=== PATIENT | male | born 1950 | race Caucasian/White ===

== ENCOUNTER 2019-06-08 22:55 | Observation (INO) ==
[2019-06-09 00:17] LABS: Appearance Urine Clear (Clear); Bacteria Urine Automated Negative (Negative); Bilirubin Urine Negative (Negative); Blood Urine Trace (Negative); Cast Urine Automated 0 /lpf (0-5); Color Urine Yellow; Epithelial Cell Urine Auto 0-5 /lpf (0-5); Glucose Urine UA Negative (Negative); Ketones Urine Negative (Negative); Leukocyte Esterase Urine Negative (Negative); Nitrite Urine Negative (Negative); Protein Urine Negative (Negative); RBC Urine Automated 0-4 /hpf (0-4); Specific Gravity Urine 1.017 (1.000-1.030); Urobilinogen Urine Negative (Negative); WBC Urine Automated 0 /hpf (0-5); pH Urine 5.5 (4.5-7.5)
[2019-06-09 00:21] LABS: Basophils # (auto) 0.03 K/uL (0-0.2); Basophils % (auto) 0.3 %; Eosinophils # (auto) 0.01 K/uL (0-0.5); Eosinophils % (auto) 0.1 %; Hematocrit (blood only) 37.3 % (42-52); Hemoglobin 13.4 g/dL (14.0-18.0); Immature Granulocytes # (auto) 0.02 K/uL (0.00-0.02); Immature Granulocytes % (auto) 0.2 %; Lymphocytes % (auto) 14.8 %; Mean Corpuscular Hemoglobin 31.7 pg (25-34); Mean Corpuscular Hgb Conc 35.9 g/dL (32-36); Mean Corpuscular Volume 88.2 fL (80-100); Mean Platelet Volume 8.7 fL (7.4-10.4); Monocytes # (auto) 0.72 K/uL (0.11-0.59); Monocytes % (auto) 8.2 %; Neutrophils # (auto) 6.69 K/uL (1.4-6.5); Neutrophils % (auto) 76.4 %; Platelet Count 222 K/uL (130-400); RDW Coefficient of Variation 12.9 % (11.5-14.5); RDW Standard Deviation 41.5 fL (36.4-46.3); Red Blood Count 4.23 M/uL (4.7-6.1); White Blood Count 8.77 K/uL (4.8-10.8)
[2019-06-09 00:38] LABS: Albumin Level 3.8 gm/dl (3.4-5.0); BUN Creatinine Ratio 19.2 (10-20); Calcium 8.6 mg/dl (8.5-10.1); Creatinine Clr Calc Pharmacy 68.1 ml/min; Est GFR (African American) 92.6; Est GFR (Non-African American) 79.9; Potassium 4.1 mmol/L (3.5-5.1)
[2019-06-09 00:44] LABS: Amphetamines+Metham, Urine Neg (Neg); Barbiturates, Urine Neg (Neg); Benzodiazepine, Urine Neg (Neg); Cocaine, Urine Neg (Neg); MDMA (Ecstacy), Urine Neg (Neg); Methadone, Urine Neg (Neg); Opiate, Urine Neg (Neg); Phencyclidine, Urine Neg (Neg)
[2019-06-09 00:49] LABS: Albumin Globulin Ratio 1.2 (0.9-2); Bilirubin,Total 0.3 mg/dl (0.2-1); Globulin 3.2 gm/dl (2.5-4.0); Thyroid Stimulating Hormone 3.32 uIu/ml (0.300-4.500)
[2019-06-09] MEDS ORDERED: SODIUM CHLORIDE 0.9% 1000ML 1,000 ML IV ONE (03:49)
--- NOTE | 2019-06-09 03:50 | History & Physical Report ---
Date of Service June 09, 2019 Assessment & Plan (1) Chest pain of uncertain etiology: With troponin elevation Likely secondary to tachycardia secondary to agitation Behavioral change, speech abnormality Rule out intracranial tumor Epilepsy well-controlled as per patient hyperlipidemia on statin Rx New onset anemia past tobacco abuse OBS Medical telemetry Follow troponin, TTE RE troponin elevation MRI brain RE behavioral change, speech abnormality Neurology consult as per patient/girlfriend request regarding behavioral change, speech abnormality (Patient known to Dr. Cisneros.) Anemia work-up DVT prophylaxis SCDs for now until brain tumor/occult GI bleed ruled out Full code Patient's partner requesting updates from providers. Ms. Fina Riddle, contact #[phone]. History of Present Illness Chief Complaint: Not acting himself as per girlfriend Primary Care Provider: Roshan Temple MD History obtained from patient, family, and records. Medical history significant for epilepsy, hyperlipidemia, past tobacco abuse. Last two days patient noted by picture painter to be not himself. Easily agitated, combative to some people. Patient denies confusion. Compliant with home medications. Denies intake of new or bowel, OTC meds. Usual achy headache symptoms. No fever, no chills. Patient also noted to be talking differently with his tongue sticking out. Grand mal seizures well-controlled, last one was about 2 years ago as per girlfriend. Patient also noted transient chest pain nonpleuritic attributed to palpitations with some shortness of breath. Medical History as above Surgical History : Carpal tunnel surgery, vasectomy, ankle surgery Family History : Laryngeal cancer, CAD, hyperlipidemia, hypertension Personal/Social history : Past tobacco abuse, occasional alcohol intake, retired [employer] employee Allergies Allergy/AdvReac Type Severity Reaction Status Date / Time No Known Allergies Allergy Verified 06/09/19 00:34 Home Medications Home Medications Medication Instructions Recorded Confirmed Type ascorbic acid (vitamin C) [Vitamin 500 mg PO DAILY 06/09/19 06/09/19 History C] atorvastatin 40 mg PO DAILY 06/09/19 06/09/19 History multivitamin with minerals 1 tab PO DAILY 06/09/19 06/09/19 History phenytoin sodium extended 100 mg PO TID 06/09/19 06/09/19 History [Dilantin Extended] vitamin E 400 unit PO DAILY 09/27/19 09/27/19 History Past Med/Surg History Family History Other No significant family history Social History Preferred Language: Brazilian Communication Ability: Effective Environmental Health Specialist Required: No Beliefs That Will Affect Care: None Current Living Situation: Significant Other Other Information That Helps Us Care for You: No Feels Safe at Home: Yes Safety Concerns: Feels Safe At This Time Smoking Status: Former smoker Do You Dip or Chew Tobacco: No ; Hx Substance Use: No Review of Systems Review of Systems: As per HPI, all 10 systems reviewed, all other ROS negative Physical Exam Physical Exam: GENERAL: Comfortable, loquacious, notable lisping during speech secondary to marked tongue thrusting, no respiratory distress SKIN: Normal color, warm HEENT: Bespectacled, pink palpebral conjunctivae, no ptosis, dry buccal mucosa NECK : Supple, no tenderness CHEST : CTA, no tenderness HEART : Tachycardic, no obvious murmurs ABDOMEN: Some distention, nontender EXTREMITIES : No LE swelling/tenderness, no other conspicuous deformities noted NEUROLOGIC : Coherent, no facial asymmetry, lisping from tongue thrusting during speech, chronic rest tremors Results & Data Vital Signs (Past 12 Hours) Vital Signs Temp Pulse Pulse Resp BP BP Pulse Ox 06/09/19 03:09 111 H 18 129/80 96 06/09/19 01:16 107 H 18 125/76 96 06/08/19 23:28 97 06/08/19 22:58 37.0 C 103 H 16 150/103 H 97 Laboratory Results Laboratory Results WBC 8.77 K/uL (4.8-10.8) 06/09/19 00:10 RBC 4.23 M/uL (4.7-6.1) L 06/09/19 00:10 Hgb 13.4 g/dL (14.0-18.0) L 06/09/19 00:10 Hct 37.3 % (42-52) L 06/09/19 00:10 MCV 88.2 fL (80-100) 06/09/19 00:10 MCH 31.7 pg (25-34) 06/09/19 00:10 MCHC 35.9 g/dL (32-36) 06/09/19 00:10 RDW Std Deviation 41.5 fL (36.4-46.3) 06/09/19 00:10 RDW Coeff of Bertha 12.9 % (11.5-14.5) 06/09/19 00:10 Plt Count 222 K/uL (130-400) 06/09/19 00:10 MPV 8.7 fL (7.4-10.4) 06/09/19 00:10 Immature Gran % (Auto) 0.2 % 06/09/19 00:10 Neut % (Auto) 76.4 % 06/09/19 00:10 Lymph % (Auto) 14.8 % 06/09/19 00:10 [place] % (Auto) 8.2 % 06/09/19 00:10 Eos % (Auto) 0.1 % 06/09/19 00:10 Baso % (Auto) 0.3 % 06/09/19 00:10 Immature Gran # (Auto) 0.02 K/uL (0.00-0.02) 06/09/19 00:10 Neut # (Auto) 6.69 K/uL (1.4-6.5) H 06/09/19 00:10 Lymph # (Auto) 1.30 K/uL (1.2-3.4) 06/09/19 00:10 [place] # (Auto) 0.72 K/uL (0.11-0.59) H 06/09/19 00:10 Eos # (Auto) 0.01 K/uL (0-0.5) 06/09/19 00:10 Baso # (Auto) 0.03 K/uL (0-0.2) 06/09/19 00:10 Sodium 136 mmol/L (136-145) 06/09/19 00:10 Potassium 4.1 mmol/L (3.5-5.1) 06/09/19 00:10 Chloride 103 mmol/L (98-107) 06/09/19 00:10 Carbon Dioxide 24 mmol/L (21-32) 06/09/19 00:10 Anion Gap 9.0 (3-11) 06/09/19 00:10 BUN 19 mg/dl (7-18) H 06/09/19 00:10 Creatinine 0.97 mg/dl (0.6-1.4) 06/09/19 00:10 Est Cr Clr Drug Dosing 68.1 ml/min 06/09/19 00:10 Est GFR ( Amer) 92.6 06/09/19 00:10 Est GFR (Non-Af Amer) 79.9 06/09/19 00:10 BUN/Creatinine Ratio 19.2 (10-20) 06/09/19 00:10 Glucose 107 mg/dl (70-99) H 06/09/19 00:10 Calcium 8.6 mg/dl (8.5-10.1) 06/09/19 00:10 Magnesium 2.0 mg/dl (1.8-2.4) 06/09/19 00:10 Total Bilirubin 0.3 mg/dl (0.2-1) 06/09/19 00:10 AST 26 U/L (15-37) 06/09/19 00:10 ALT 33 U/L (12-78) 06/09/19 00:10 Alkaline Phosphatase 94 U/L (45-117) 06/09/19 00:10 Total Creatine Kinase 384 U/L (39-308) H 06/09/19 00:10 Total Protein 7.0 gm/dl (6.4-8.2) 06/09/19 00:10 Albumin 3.8 gm/dl (3.4-5.0) 06/09/19 00:10 Globulin 3.2 gm/dl (2.5-4.0) 06/09/19 00:10 Albumin/Globulin Ratio 1.2 (0.9-2) 06/09/19 00:10 TSH 3.320 uIu/ml (0.300-4.500) 06/09/19 00:10 Urine Color Yellow 06/08/19 23:05 Urine Appearance Clear (Clear) 06/08/19 23:05 Urine pH 5.5 (4.5-7.5) 06/08/19 23:05 Ur Specific [place] 1.017 (1.000-1.030) 06/08/19 23:05 Urine Protein Negative (Negative) 06/08/19 23:05 Urine Glucose (UA) Negative (Negative) 06/08/19 23:05 Urine Ketones Negative (Negative) 06/08/19 23:05 Urine Blood Trace (Negative) H 06/08/19 23:05 Urine Nitrite Negative (Negative) 06/08/19 23:05 Urine Bilirubin Negative (Negative) 06/08/19 23:05 Urine Urobilinogen Negative (Negative) 06/08/19 23:05 Ur Leukocyte Esterase Negative (Negative) 06/08/19 23:05 Urine WBC (Auto) 0 /hpf (0-5) 06/08/19 23:05 Urine RBC (Auto) 0-4 /hpf (0-4) 06/08/19 23:05 U Hyaline Cast (Auto) 0 /lpf (0-5) 06/08/19 23:05 U Epithel Cells (Auto) 0-5 /lpf (0-5) 06/08/19 23:05 Urine Bacteria (Auto) Negative (Negative) 06/08/19 23:05 Urine Opiates Screen Neg (Neg) 06/08/19 23:05 Ur Methadone, Qual Neg (Neg) 06/08/19 23:05 Urine Barbiturates Neg (Neg) 06/08/19 23:05 Phenytoin 10.1 mcg/ml (10-20) 06/09/19 00:10 Ur Phencyclidine (PCP) Neg (Neg) 06/08/19 23:05 U Amphetamin/Meth Scrn Neg (Neg) 06/08/19 23:05 MDMA (Ecstasy) Screen Neg (Neg) 06/08/19 23:05 U Benzodiazepines Scrn Neg (Neg) 06/08/19 23:05 Ur Cocaine Metabolite Neg (Neg) 06/08/19 23:05 U Marijuana (THC) Screen Neg (Neg) 06/08/19 23:[address] head initial read: No acute intracranial hemorrhage. CT chest initial read: No evidence of pulmonary embolism. Coronary artery calcifications. Mild atelectasis right lower lobe. Few small lung nodules. Small tracheal diverticulum at thoracic inlet. Liver hypodensities likely cysts. Mild exaggerated thoracic kyphosis. EKG as per my interpretation: Rate 90, NSR, LAD, LAFB, incomplete RBBB, T wave flattening, inferior leads
[2019-06-09 04:31] LABS: Reticulocytes # 0.04 10^6/uL (0.02-0.10)
[2019-06-09 04:50] LABS: Partial Thromboplastin Ratio 0.9; Partial Thromboplastin Time 24.1 Seconds (21.0-31.0)
[2019-06-09 04:53] LABS: Ferritin 200.9 ng/ml (8-388)
[2019-06-09] MEDS ORDERED: OPTIRAY 320 125ml IV PRN (04:55)
[2019-06-09] MEDS ORDERED: LACTATED RINGER'S 1,000 ML IV ONE ×3 (05:04→07:30)
[2019-06-09] MEDS ORDERED: NITROGLYCERIN SL 0.4 MG/TAB TAB SL PRN (05:04)
[2019-06-09] MEDS ORDERED: ACETAMINOPHEN 325 MG TAB PO PRN (05:04)
[2019-06-09] MEDS ORDERED: PROMETHAZINE HCL 12.5 MG in SODIUM CHLORIDE 0.9% 50 ML IV PRN (05:04)
[2019-06-09 05:23] LABS: Lyme Ab IgM w/WB Rflx Negative (Negative)
[2019-06-09 06:24] LABS: Lyme Ab IgG w/WB Rflx Positive (Negative)
--- NOTE | 2019-06-09 06:57 | CT Scan Report ---
CT angio chest PE protocol CT DOSE: 597.94 mGy.cm HISTORY: 68 years-old Male with PE. Acute chest pain TECHNIQUE: Multiple CTA images of the chest were obtained after the intravenous administration of 116 ml Optiray 320. Coronal and sagittal MIPS were obtained from the axial data set and were submitted for review. All measurements were obtained according to NASCET criteria. A dose lowering technique w as utilized adhering to the principles of ALARA. COMPARISON: Chest and rib radiographs 08/30/2016. FINDINGS: CTA: Heart is normal in size without pericardial effusion. Coronary arterial calcifications. No thoracic a ortic aneurysm or dissection. Patency of the imaged great vessels. Calcified plaque of the thoracic a ortic arch and proximal great vessels. Pulmonary arterial tree is opacified to level the segmental br anches and demonstrates no focal filling defects to suggest pulmonary thromboembolic disease. Evaluat ion of the pulmonary arterial tree is limited secondary to respiratory motion artifact. CT CHEST: Unremarkable thyroid. No adenopathy. No pneumothorax or pleural effusion. No overt pulmonary edema or focal airspace consolidation to suggest pneumonia. Minimal subsegmental bibasilar atelectasis. 3 mm solid nodule of the lingula, image 69 series 4. There are a few scattered solid pulmonary nodules not ed within the right upper lobe measuring up to 4 mm (please see bookmarks). Central airways appear pa tent. A small tracheocele is noted within the distribution of the right tracheoesophageal recess on i mage 219 series 4. Mild nonspecific distal esophageal wall thickening with probable tiny hiatal herni a. Probable cyst of the left hepatic lobe, 11 mm. Soft tissues are unremarkable. The bones appear int act. IMPRESSION: 1. No acute intrathoracic abnormality, specifically no evidence of pulmonary thromboembolic disease. 2. A few low suspicion solid pulmonary nodules are noted bilaterally measuring up to 4 mm. Follow-up guidelines provided below. 3. Mild nonspecific distal esophageal wall thickening. Please refer to below summary of Fleischner criteria recommendations for follow-up of incidental CT n odules (Dianna Gray, Guidelines for management of small pulmonary nodules detected on CT scans: A sta tement from the Fleischner Society, Radiology 237: [phone].) SOLID NODULES Multiple nodules size: <6 mm * Low risk patients: no routine follow-up * high risk patients: optional CT at 12 months Note: newly detected indeterminate nodule in persons 35 years of age or older. * Low risk patients: minimal or absent history of smoking and/or other known risk factors * high risk patients: history of smoking or of other known risk factors (e.g. first degree relative with lung cancer, or exposure to asbestos, radon, uranium) * if a nodule up to 8 mm is partly solid or is ground glass further follow-up is required after 24 m onths to exclude possible slow growing adenocarcinoma ([id number]) The above report was generated using voice recognition software. It may contain grammatical, syntax o r spelling errors. Electronically signed by: Anthony Arellano M.D. 06/09/2019 6:55 AM
--- NOTE | 2019-06-09 07:09 | CT Scan Report ---
CT head/brain wo con CLINICAL HISTORY: 68 years-old Male presenting with altered ms. TECHNIQUE: Multidetector CT imaging of the head was performed without the use of intravenous contrast . IV contrast: None. One or more dose lowering techniques were used consistent with the principles of ALARA (as low as reasonably achievable), including automatic exposure control, mA or kV adjustment t o individual patient size, and/or use of iterative reconstruction. COMPARISON: None. CT DOSE (mGy.cm): The estimated cumulative dose is 614.27 mGy.cm. FINDINGS: Equipment Validation Engineer topogram: Unremarkable. Proportional ventricular and sulcal prominence, likely age-related parenchymal volume loss. No hemorr josh. Brain parenchyma normal in appearance with preserved pierce-white differentiation. No acute kevin torial infarct. No mass effect or midline shift. No extra-axial fluid collection. Paranasal sinuses a nd mastoid air cells clear. Calvarium intact. IMPRESSION: 1. No acute intracranial abnormality. Electronically signed by: Joo Lyons M.D. 06/09/2019 7:07 AM
[2019-06-09] MEDS: PHENYTOIN SODIUM ER 100 MG CAP PO SCH ×3 (07:49→20:28)
[2019-06-09] MEDS: CEROVITE ADV FORMULA TAB PO SCH (07:49)
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
--- NOTE | 2019-06-09 08:54 | Magnetic Resonance Report ---
MR brain wo/w con CLINICAL HISTORY: 68 years-old Male presenting with mental status change, intermittent headaches, his tory of seizures. TECHNIQUE: Multisequence, multiplanar MR imaging of the brain was performed before and after the admi nistration of intravenous contrast. IV contrast: 8 mL of Gadavist. COMPARISON: Noncontrast CT head performed earlier the same day. FINDINGS: Localizer images: Unremarkable. Bone marrow signal intensity within the calvarium within normal limits. Normal midline sagittal structures. Ventricles and sulci normal in size. No mass effect or midline sh ift. No restricted diffusion or hemorrhage. Brain parenchyma normal in appearance with preserved pierce -white differentiation. No abnormal parenchymal enhancement. No extra-axial fluid collection. T2 skull base flow voids preserved. IMPRESSION: 1. No acute intracranial pathology. No abnormal enhancement. Electronically signed by: Joo Lyons M.D. 06/09/2019 8:53 AM
[2019-06-09] MEDS ORDERED: GADOBUTROL 65ML VIAL IV PRN (08:57)
[2019-06-09 08:58] LABS: Folate (Folic Acid) 12.72 ng/ml (>5.38)
--- NOTE | 2019-06-09 09:59 | Hospitalist Progress Note ---
Date of Service June 09, 2019 Assessment & Plan (1) Chest pain of uncertain etiology: With troponin elevation Likely secondary to tachycardia secondary to agitation Behavioral change, speech abnormality Rule out intracranial tumor Epilepsy well-controlled as per patient hyperlipidemia on statin Rx New onset anemia past tobacco abuse OBS Medical telemetry Follow troponin, TTE RE troponin elevation MRI brain RE behavioral change, speech abnormality Neurology consult as per patient/girlfriend request regarding behavioral change, speech abnormality (Patient known to Dr. Cisneros.) Anemia work-up DVT prophylaxis SCDs for now until brain tumor/occult GI bleed ruled out Full code Patient's partner requesting updates from providers. Ms. Fina Riddle, contact #[phone]. (2) Altered mental status: 68-year-old male with history of seizure disorder, presented with behavioral changes BEHAVIORAL CHANGES, HISTORY OF EPILEPSY Brain MRI: No acute CVA Dilantin within normal range r/o partial versus subclinical seizures EEG ordered Neurology consulted ATYPICAL CHEST PAIN Troponin #1 0.04, #2 negative, #3 pending EKG: No signs of acute ischemia or infarct Echocardiogram: Left ventricular wall motion is normal, mild concentric LVH, EF more than equal or greater than 70%, grade 1 diastolic dysfunction Consider outpatient stress testing persistent CT chest: Negative for PE Also reports intermittent palpitations occurring when he is upset, consider outpatient cardiac monitoring LEFT ANKLE PAIN HISTORY OF ANKLE SURGERY X-ray of the ankle ordered Orthopedic consultation ordered Ice packs to the affected area PT OT ordered RULE OUT LYME DISEASE IgG positive Western blot test pending DVT prophylaxis SCDs Consider Lovenox if with prolonged hospitalization Disposition Lives at home with family Subjective Follow-up for behavioral changes, chest pain Seen resting in bed, with sister at the bedside visiting Patient is comfortable, not in distress Answers questions appropriately, oriented x3 Denies focal neurologic deficits Chest pain-free Reported sharp chest pain, central sternum area, located one finger, nonradiating, lasted for 2 minutes, happened while upset Reports progressive worsening of left ankle pain Denies other symptoms Review of Systems Review of Systems: All systems reviewed & are unremarkable except as noted in HPI & below Physical Exam Physical Exam: General- oriented x 3, not in distress, speaks in sentences wi th no effort or accessory muscle use Head- atraumatic Eyes- PERRL, EOMI, anicteric ENT- oropharynx clear Neck- supple, no JVD, no adenopathy, no thyromegaly; carotids +2/2, no bruits appreciated Lungs- clear to auscultation bilaterally, no rales/wheezes Heart- normal rate, regular rhythm; no murmur, no gallop, no rub appreciated Abdomen- normal bowel sounds, nondistended, soft, nontender, no masses or hepatosplenomegaly Extremities- no pretibial edema, no calf tenderness; peripheral pulses intact Left ankle mild swelling to lateral aspect, no warmth/erythema/tenderness Neuro- alert, oriented x 3; CN 2-12 grossly intact except for dysarthria-chronic as per patient; motor 5/5 bilaterally;sensation 100% on all extremities; no other gross focal neurologic deficits Skin- warm & dry Results & Data Vital Signs (Past 12 Hours) Vital Signs Temp Pulse Pulse Resp BP BP Pulse Ox 06/09/19 07:00 36.8 C 20 126/78 98 06/09/19 04:52 36.8 C 81 20 152/89 H 96 06/09/19 04:20 101 H 18 125/103 H 96 06/09/19 03:09 111 H 18 129/80 96 06/09/19 01:16 107 H 18 125/76 96 06/08/19 23:28 97 06/08/19 22:58 37.0 C 103 H 16 150/103 H 97 Laboratory Results Laboratory Results - last 24 hr 06/08/19 06/08/19 06/09/19 23:05 23:05 00:10 WBC 8.77 RBC 4.23 L Hgb 13.4 L Hct 37.3 L MCV 88.2 MCH 31.7 MCHC 35.9 RDW Std Deviation 41.5 RDW Coeff of Bertha 12.9 Plt Count 222 MPV 8.7 Immature Gran % (Auto) 0.2 Neut % (Auto) 76.4 Lymph % (Auto) 14.8 [place] % (Auto) 8.2 Eos % (Auto) 0.1 Baso % (Auto) 0.3 Reticulocyte % (Auto) Immature Gran # (Auto) 0.02 Neut # (Auto) 6.69 H Lymph # (Auto) 1.30 [place] # (Auto) 0.72 H Eos # (Auto) 0.01 Baso # (Auto) 0.03 Reticulocyte # APTT PTT Ratio Sodium Potassium Chloride Carbon Dioxide Anion Gap BUN Creatinine Est Cr Clr Drug Dosing Est GFR ( Amer) Est GFR (Non-Af Amer) BUN/Creatinine Ratio Glucose Calcium Magnesium Iron TIBC Transferrin Ferritin Total Bilirubin AST ALT Alkaline Phosphatase Total Creatine Kinase Troponin I Total Protein Albumin Globulin Albumin/Globulin Ratio Vitamin B12 Folate TSH Urine Color Yellow Urine Appearance Clear Urine pH 5.5 Ur Specific [place] 1.017 Urine Protein Negative Urine Glucose (UA) Negative Urine Ketones Negative Urine Blood Trace H Urine Nitrite Negative Urine Bilirubin Negative Urine Urobilinogen Negative Ur Leukocyte Esterase Negative Urine WBC (Auto) 0 Urine RBC (Auto) 0-4 U Hyaline Cast (Auto) 0 U Epithel Cells (Auto) 0-5 Urine Bacteria (Auto) Negative Stool Occult Bld Scrn Urine Opiates Screen Neg Ur Methadone, Qual Neg Urine Barbiturates Neg Phenytoin Ur Phencyclidine (PCP) Neg U Amphetamin/Meth Scrn Neg MDMA (Ecstasy) Screen Neg U Benzodiazepines Scrn Neg Ur Cocaine Metabolite Neg U Marijuana (THC) Screen Neg Ethyl Alcohol mg/dL RPR Lyme Disease IgG Ab Lyme IgG (Western Blot) Lyme IgG 18 kDa Band Lyme IgG 23 kDa Band Lyme IgG 28 kDa Band Lyme IgG 30 kDa Band Lyme IgG 39 kDa Band Lyme IgG 41 kDa Band Lyme IgG 45 kDa Band Lyme IgG 58 kDa Band Lyme IgG 66 kDa Band Lyme IgG 93 kDa Band Lyme Disease IgM Ab Lyme IgM (Western Blot) Lyme IgM 23 kDa Band Lyme IgM 39 kDa Band Lyme IgM 41 kDa Band Hepatitis C Ab Screen Blood Type Antibody Screen 06/09/19 06/09/19 06/09/19 00:10 00:10 04:11 WBC RBC Hgb Hct MCV MCH MCHC RDW Std Deviation RDW Coeff of Bertha Plt Count MPV Immature Gran % (Auto) Neut % (Auto) Lymph % (Auto) [place] % (Auto) Eos % (Auto) Baso % (Auto) Reticulocyte % (Auto) Immature Gran # (Auto) Neut # (Auto) Lymph # (Auto) [place] # (Auto) Eos # (Auto) Baso # (Auto) Reticulocyte # APTT 24.1 PTT Ratio 0.9 Sodium 136 Potassium 4.1 Chloride 103 Carbon Dioxide 24 Anion Gap 9.0 BUN 19 H Creatinine 0.97 Est Cr Clr Drug Dosing 68.1 Est GFR ( Amer) 92.6 Est GFR (Non-Af Amer) 79.9 BUN/Creatinine Ratio 19.2 Glucose 107 H Calcium 8.6 Magnesium 2.0 Iron TIBC Transferrin Ferritin Total Bilirubin 0.3 AST 26 ALT 33 Alkaline Phosphatase 94 Total Creatine Kinase 384 H Troponin I Total Protein 7.0 Albumin 3.8 Globulin 3.2 Albumin/Globulin Ratio 1.2 Vitamin B12 Folate TSH 3.320 Urine Color Urine Appearance Urine pH Ur Specific [place] Urine Protein Urine Glucose (UA) Urine Ketones Urine Blood Urine Nitrite Urine Bilirubin Urine Urobilinogen Ur Leukocyte Esterase Urine WBC (Auto) Urine RBC (Auto) U Hyaline Cast (Auto) U Epithel Cells (Auto) Urine Bacteria (Auto) Stool Occult Bld Scrn Urine Opiates Screen Ur Methadone, Qual Urine Barbiturates Phenytoin 10.1 Ur Phencyclidine (PCP) U Amphetamin/Meth Scrn MDMA (Ecstasy) Screen U Benzodiazepines Scrn Ur Cocaine Metabolite U Marijuana (THC) Screen Ethyl Alcohol mg/dL RPR Lyme Disease IgG Ab Lyme IgG (Western Blot) Lyme IgG 18 kDa Band Lyme IgG 23 kDa Band Lyme IgG 28 kDa Band Lyme IgG 30 kDa Band Lyme IgG 39 kDa Band Lyme IgG 41 kDa Band Lyme IgG 45 kDa Band Lyme IgG 58 kDa Band Lyme IgG 66 kDa Band Lyme IgG 93 kDa Band Lyme Disease IgM Ab Lyme IgM (Western Blot) Lyme IgM 23 kDa Band Lyme IgM 39 kDa Band Lyme IgM 41 kDa Band Hepatitis C Ab Screen Blood Type Antibody Screen 06/09/19 06/09/19 06/09/19 04:11 04:11 04:11 WBC RBC Hgb Hct MCV MCH MCHC RDW Std Deviation RDW Coeff of Bertha Plt Count MPV Immature Gran % (Auto) Neut % (Auto) Lymph % (Auto) [place] % (Auto) Eos % (Auto) Baso % (Auto) Reticulocyte % (Auto) 1.0 Immature Gran # (Auto) Neut # (Auto) Lymph # (Auto) [place] # (Auto) Eos # (Auto) Baso # (Auto) Reticulocyte # 0.04 APTT PTT Ratio Sodium Potassium Chloride Carbon Dioxide Anion Gap BUN Creatinine Est Cr Clr Drug Dosing Est GFR ( Amer) Est GFR (Non-Af Amer) BUN/Creatinine Ratio Glucose Calcium Magnesium Iron TIBC Transferrin Ferritin Total Bilirubin AST ALT Alkaline Phosphatase Total Creatine Kinase Troponin I Total Protein Albumin Globulin Albumin/Globulin Ratio Vitamin B12 Folate TSH Urine Color Urine Appearance Urine pH Ur Specific [place] Urine Protein Urine Glucose (UA) Urine Ketones Urine Blood Urine Nitrite Urine Bilirubin Urine Urobilinogen Ur Leukocyte Esterase Urine WBC (Auto) Urine RBC (Auto) U Hyaline Cast (Auto) U Epithel Cells (Auto) Urine Bacteria (Auto) Stool Occult Bld Scrn Urine Opiates Screen Ur Methadone, Qual Urine Barbiturates Phenytoin Ur Phencyclidine (PCP) U Amphetamin/Meth Scrn MDMA (Ecstasy) Screen U Benzodiazepines Scrn Ur Cocaine Metabolite U Marijuana (THC) Screen Ethyl Alcohol mg/dL < 3.0 RPR Pending Lyme Disease IgG Ab Positive A Lyme IgG (Western Blot) Lyme IgG 18 kDa Band Lyme IgG 23 kDa Band Lyme IgG 28 kDa Band Lyme IgG 30 kDa Band Lyme IgG 39 kDa Band Lyme IgG 41 kDa Band Lyme IgG 45 kDa Band Lyme IgG 58 kDa Band Lyme IgG 66 kDa Band Lyme IgG 93 kDa Band Lyme Disease IgM Ab Negative Lyme IgM (Western Blot) Lyme IgM 23 kDa Band Lyme IgM 39 kDa Band Lyme IgM 41 kDa Band Hepatitis C Ab Screen Blood Type Antibody Screen 06/09/19 06/09/19 06/09/19 04:11 04:11 04:11 WBC RBC Hgb Hct MCV MCH MCHC RDW Std Deviation RDW Coeff of Bertha Plt Count MPV Immature Gran % (Auto) Neut % (Auto) Lymph % (Auto) [place] % (Auto) Eos % (Auto) Baso % (Auto) Reticulocyte % (Auto) Immature Gran # (Auto) Neut # (Auto) Lymph # (Auto) [place] # (Auto) Eos # (Auto) Baso # (Auto) Reticulocyte # APTT PTT Ratio Sodium Potassium Chloride Carbon Dioxide Anion Gap BUN Creatinine Est Cr Clr Drug Dosing Est GFR ( Amer) Est GFR (Non-Af Amer) BUN/Creatinine Ratio Glucose Calcium Magnesium Iron 47 TIBC 207 L Transferrin 161 L Ferritin 200.9 Total Bilirubin AST ALT Alkaline Phosphatase Total Creatine Kinase Troponin I Total Protein Albumin Globulin Albumin/Globulin Ratio Vitamin B12 342 Folate 12.72 TSH Urine Color Urine Appearance Urine pH Ur Specific [place] Urine Protein Urine Glucose (UA) Urine Ketones Urine Blood Urine Nitrite Urine Bilirubin Urine Urobilinogen Ur Leukocyte Esterase Urine WBC (Auto) Urine RBC (Auto) U Hyaline Cast (Auto) U Epithel Cells (Auto) Urine Bacteria (Auto) Stool Occult Bld Scrn Urine Opiates Screen Ur Methadone, Qual Urine Barbiturates Phenytoin Ur Phencyclidine (PCP) U Amphetamin/Meth Scrn MDMA (Ecstasy) Screen U Benzodiazepines Scrn Ur Cocaine Metabolite U Marijuana (THC) Screen Ethyl Alcohol mg/dL RPR Lyme Disease IgG Ab Lyme IgG (Western Blot) Lyme IgG 18 kDa Band Lyme IgG 23 kDa Band Lyme IgG 28 kDa Band Lyme IgG 30 kDa Band Lyme IgG 39 kDa Band Lyme IgG 41 kDa Band Lyme IgG 45 kDa Band Lyme IgG 58 kDa Band Lyme IgG 66 kDa Band Lyme IgG 93 kDa Band Lyme Disease IgM Ab Lyme IgM (Western Blot) Lyme IgM 23 kDa Band Lyme IgM 39 kDa Band Lyme IgM 41 kDa Band Hepatitis C Ab Screen Blood Type A Positive Antibody Screen NEGATIVE 06/09/19 06/09/19 06/09/19 04:11 04:11 07:45 WBC RBC Hgb Hct MCV MCH MCHC RDW Std Deviation RDW Coeff of Bertha Plt Count MPV Immature Gran % (Auto) Neut % (Auto) Lymph % (Auto) [place] % (Auto) Eos % (Auto) Baso % (Auto) Reticulocyte % (Auto) Immature Gran # (Auto) Neut # (Auto) Lymph # (Auto) [place] # (Auto) Eos # (Auto) Baso # (Auto) Reticulocyte # APTT PTT Ratio Sodium Potassium Chloride Carbon Dioxide Anion Gap BUN Creatinine Est Cr Clr Drug Dosing Est GFR ( Amer) Est GFR (Non-Af Amer) BUN/Creatinine Ratio Glucose Calcium Magnesium Iron TIBC Transferrin Ferritin Total Bilirubin AST ALT Alkaline Phosphatase Total Creatine Kinase Troponin I 0.048 H* 0.033 Total Protein Albumin Globulin Albumin/Globulin Ratio Vitamin B12 Folate TSH Urine Color Urine Appearance Urine pH Ur Specific [place] Urine Protein Urine Glucose (UA) Urine Ketones Urine Blood Urine Nitrite Urine Bilirubin Urine Urobilinogen Ur Leukocyte Esterase Urine WBC (Auto) Urine RBC (Auto) U Hyaline Cast (Auto) U Epithel Cells (Auto) Urine Bacteria (Auto) Stool Occult Bld Scrn Urine Opiates Screen Ur Methadone, Qual Urine Barbiturates Phenytoin Ur Phencyclidine (PCP) U Amphetamin/Meth Scrn MDMA (Ecstasy) Screen U Benzodiazepines Scrn Ur Cocaine Metabolite U Marijuana (THC) Screen Ethyl Alcohol mg/dL RPR Lyme Disease IgG Ab Lyme IgG (Western Blot) Pending Lyme IgG 18 kDa Band Pending Lyme IgG 23 kDa Band Pending Lyme IgG 28 kDa Band Pending Lyme IgG 30 kDa Band Pending Lyme IgG 39 kDa Band Pending Lyme IgG 41 kDa Band Pending Lyme IgG 45 kDa Band Pending Lyme IgG 58 kDa Band Pending Lyme IgG 66 kDa Band Pending Lyme IgG 93 kDa Band Pending Lyme Disease IgM Ab Lyme IgM (Western Blot) Pending Lyme IgM 23 kDa Band Pending Lyme IgM 39 kDa Band Pending Lyme IgM 41 kDa Band Pending Hepatitis C Ab Screen Blood Type Antibody Screen 06/09/19 06/09/19 07:45 15:56 WBC RBC Hgb Hct MCV MCH MCHC RDW Std Deviation RDW Coeff of Bertha Plt Count MPV Immature Gran % (Auto) Neut % (Auto) Lymph % (Auto) [place] % (Auto) Eos % (Auto) Baso % (Auto) Reticulocyte % (Auto) Immature Gran # (Auto) Neut # (Auto) Lymph # (Auto) [place] # (Auto) Eos # (Auto) Baso # (Auto) Reticulocyte # APTT PTT Ratio Sodium Potassium Chloride Carbon Dioxide Anion Gap BUN Creatinine Est Cr Clr Drug Dosing Est GFR ( Amer) Est GFR (Non-Af Amer) BUN/Creatinine Ratio Glucose Calcium Magnesium Iron TIBC Transferrin Ferritin Total Bilirubin AST ALT Alkaline Phosphatase Total Creatine Kinase Troponin I Total Protein Albumin Globulin Albumin/Globulin Ratio Vitamin B12 Folate TSH Urine Color Urine Appearance Urine pH Ur Specific [place] Urine Protein Urine Glucose (UA) Urine Ketones Urine Blood Urine Nitrite Urine Bilirubin Urine Urobilinogen Ur Leukocyte Esterase Urine WBC (Auto) Urine RBC (Auto) U Hyaline Cast (Auto) U Epithel Cells (Auto) Urine Bacteria (Auto) Stool Occult Bld Scrn Negative Urine Opiates Screen Ur Methadone, Qual Urine Barbiturates Phenytoin Ur Phencyclidine (PCP) U Amphetamin/Meth Scrn MDMA (Ecstasy) Screen U Benzodiazepines Scrn Ur Cocaine Metabolite U Marijuana (THC) Screen Ethyl Alcohol mg/dL RPR Lyme Disease IgG Ab Lyme IgG (Western Blot) Lyme IgG 18 kDa Band Lyme IgG 23 kDa Band Lyme IgG 28 kDa Band Lyme IgG 30 kDa Band Lyme IgG 39 kDa Band Lyme IgG 41 kDa Band Lyme IgG 45 kDa Band Lyme IgG 58 kDa Band Lyme IgG 66 kDa Band Lyme IgG 93 kDa Band Lyme Disease IgM Ab Lyme IgM (Western Blot) Lyme IgM 23 kDa Band Lyme IgM 39 kDa Band Lyme IgM 41 kDa Band Hepatitis C Ab Screen Neg Blood Type Antibody Screen (1) Altered mental status Altered mental status type: unspecified Qualified Code(s): R41.82 - Altered mental status, unspecified
--- NOTE | 2019-06-09 11:11 | XRay Report ---
LEFT ANKLE 3 VIEWS HISTORY: ankle pain, s/p surgery COMPARISON: None. FINDINGS: No acute fracture or dislocation within the left ankle. Prior internal fixation of a distal left fibular fracture with a cortical plate and screws. The hardware appears intact. There is decrea sed mineralization within the distal basilar tip without definite periprosthetic lucency. There is la teral soft tissue swelling. No bony destruction to suggest osteomyelitis. Plantar and posterior calca loretta spurs are present. No radiopaque foreign bodies. IMPRESSION: 1. Lateral soft tissue swelling. 2. Postoperative changes as described above. No evidence for hardware failure/complication. Electronically signed by: Antione Castaneda M.D. 06/09/2019 11:10 AM
--- NOTE | 2019-06-09 13:38 | Orthopedic Consultation ---
Date of Consultation June 09, 2019 Assessment & Plan (1) Swelling of ankle joint, left: Will have the patient evaluated by PT while inpatient. Discussed outpatient PT and possible bracing. WBAT LLE Activity as tolerated. Patient may follow up with Dr. Matson on an outpatient basis if he has persistent pain. Thank you for the consultation. Attending addendum: Patient seen and examined on consult rounds. Agree with assessment and plan above. Will see as an outpatient as needed. Thank you for the consult. Michele Carolyn DO (2) Left ankle pain: (3) Displaced fracture of lateral malleolus of left fibula, sequela: ~6 months s/p ORIF left lateral malleolus fx History of Present Illness Reason for Consultation: left ankle pain Attending Physician: Tonio Gardiner MD History of Present Illness This is a patient who had an ORIF of his left lateral malleolus fx in November of this year performed by Dr. Matson. He had progressed well throughout his recovery. He states he was told the bone had healed. He has not had any physical therapy to this point. He is still having some ankle pain and lateral ankle swelling. Allergies Allergy/AdvReac Type Severity Reaction Status Date / Time No Known Allergies Allergy Verified 06/09/19 00:34 Home Medications Home Medications Medication Instructions Recorded Confirmed Type ascorbic acid (vitamin C) [Vitamin 500 mg PO DAILY 06/09/19 06/09/19 History C] atorvastatin 40 mg PO DAILY 06/09/19 06/09/19 History multivitamin with minerals 1 tab PO DAILY 06/09/19 06/09/19 History phenytoin sodium extended 100 mg PO TID 06/09/19 06/09/19 History [Dilantin Extended] vitamin E 400 unit PO DAILY 06/09/19 06/09/19 History Patient History Family History Other No significant family history Social History Preferred Language: Greenlandic Communication Ability: Effective Mission Coordinator Required: No Beliefs That Will Affect Care: None Current Living Situation: Significant Other Other Information That Helps Us Care for You: No Feels Safe at Home: Yes Safety Concerns: Feels Safe At This Time Smoking Status: Former smoker Do You Dip or Chew Tobacco: No ; Hx Substance Use: No Physical Exam Constitutional: WD/WN, vitals as above ENMT: external ear and nose normal, oropharynx normal Musculoskeletal: Shoulder: + joint line tenderness (left anterolateral ankle. Nontender along fibula.) Ankle: + surgical incision (healed left lateral ankle incision) and + joint line tenderness (left anterolateral ankle. Nontender along fibula.); no effusion, no skin erythema, no ecchymosis and no crepitation with ankle ROM Left ankle: Good ROM with dorsiflexion, plantarflexion, inversion, eversion. PROM is pain free. No crepitation. 5/5 strength with dorsiflexion, plantarflexion, inversion, eversion. Mild to moderate swelling of the lateral ankle. No erythema. No obvious deformities. Skin: no rashes, warm and dry + wound (healed left lateral ankle incision) Neurologic: normal touch/pain/proprioception Psychiatric: Orientation: alert and oriented x 3 Lymphatic: no cervical or axillary lymphadenopathy Results & Data Vital Signs (Past 12 Hours) Vital Signs Temp Pulse Resp BP Pulse Ox 06/09/19 07:00 36.8 C 20 126/78 98 06/09/19 04:52 36.8 C 81 20 152/89 H 96 06/09/19 04:20 101 H 18 125/103 H 96 06/09/19 03:09 111 H 18 129/80 96 Diagnostic Findings 3 views of the left ankle: normal ankle mortise. Stable hardware lateral malleolus. The lateral malleolus appears to be well healed. No new fx's noted.
--- NOTE | 2019-06-09 14:11 | Neurology Consultation ---
Date of Consultation June 09, 2019 Assessment & Plan (1) Altered mental status: 1. MRI- with no acute findings 2. TTE >70 % EF no ASD 3. ZIO as outpatient for further evaluation of heart palpitations 4. no evidence of infection- Lyme + but negative M- never treated in past 5. limit caffeine use 6. keep well hydrated 7. CT chest- no evidence of PE- lung nodules follow up per radiology protocol 8. Vit B12, folate within normal range RPR-pending 9. irritable according to significant other- will likely need medication for anxiety 10. neuropsych testing as outpatient (2) History of seizure: 1. continue dilantin 100 mg TID no changes at this time 2. level 10.1 -therapeutic range 3. no bathing or swimming alone, no driving until seizure free for 6 months- seizures have been well controlled last seizure 05/2017 when hiking in [place]. Supervising Physician Co-Signing Physician Notes I have seen and discussed above patient with Dr Ana Lopez, neurology. Pt seen and examined. Hx of longstanding sz on Dilantin. By report some mild decrease in STM x 1 year and irritability. Pt much more irritable last 2 d, waited outside a business for hours to give the business his opinion re service. Perhaps speech mildly dysarthric for 4 or more hours. Some tongue thrusting of several months duration. MRI neg, Dilantin nml. CK mild increased (query statin related). Exm notable for some tongue thrusting and stuttering. No nystagmus. Mildly clumsy on FNF R>L. Gait mildly wide based. Episode of irritability, possibly behavioral. No evidence of stroke on MRI. Rec further eval for dementia, labs. Perhaps neuropsych testing upon dc. Etiology of cerebellar signs unclear, but longstanding. Consider psych consult or empiric use of SSRI. MONICA Lopez MD History of Present Illness Reason for Consultation: behavior change Requesting Physician: Tonio Gardiner MD Attending Physician: Tonio Gardiner MD History of Present Illness Delta is a 68 year old male with PHM- epilepsy, HLD, past tobacco abuse. He had not been himself for the past 2 days. He was easily agitated, and combative with some people. He states he was not confused. He is taking his medications as directed. His girlfriend had reported she thought he was taking differently with his tongue sticking out. He states he was having heart palpatations and it took him 4 hours to calm down. He also states he had a 30 pound weight loss but unclear over what time period but he states he is happy he lost some weight. His sister is in the room and feels he is back to his baseline. He was a ppd smoker but quit years ago, minimal EtOH use, drinks at least 6 c coffee per day and diet pepsi or coke also, he does not take any drugs not prescribed to him. denies CP, SOB, abdominal pain, one sided weakness, numbness tingling, N, V, D, fever chills night sweats, falls. Allergies Allergy/AdvReac Type Severity Reaction Status Date / Time No Known Allergies Allergy Verified 06/09/19 00:34 Home Medications Home Medications Medication Instructions Recorded Confirmed Type ascorbic acid (vitamin C) [Vitamin 500 mg PO DAILY 06/09/19 06/09/19 History C] atorvastatin 40 mg PO DAILY 06/09/19 06/09/19 History multivitamin with minerals 1 tab PO DAILY 06/09/19 06/09/19 History phenytoin sodium extended 100 mg PO TID 06/09/19 06/09/19 History [Dilantin Extended] vitamin E 400 unit PO DAILY 06/09/19 06/09/19 History Patient History Family History Other No significant family history Social History Preferred Language: Greenlandic Communication Ability: Effective Junior Net 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 Required: No Beliefs That Will Affect Care: None Current Living Situation: Significant Other Other Information That Helps Us Care for You: No Feels Safe at Home: Yes Safety Concerns: Feels Safe At This Time Smoking Status: Former smoker Do You Dip or Chew Tobacco: No ; Hx Substance Use: No Physical Exam Physical Exam: Physical Exam: Constitutional: appearance over nourished, healthy and normal Ears, Nose, Mouth and Throat: mucous membranes moist, no injection and skin normal, eyes normal Cardiovascular: normal S-1 and S-2 and regular rate and rhythm Respiratory: course breath sounds Musculoskeletal: peripheral edema left foot and good distal pulses Skin: no stigmata of neurocutaneous disease noted and normal and intact Eyes: extraocular muscles intact (EOMI) and pupils equal, round and reactive to light (PERRL) NEUROLOGIC EXAMINATION: Mental status: Alert and interactive Oriented to [facility], 2019, lives in [place] [address] [place] Oriented to person Speech fluent with no evidence of aphasia, talks like tongue is thick Cranial Nerves smile eye brow raise symmetric Reflexes: Deep tendon reflexes were symmetrical and graded 2/5. down going toes Sensory: light cool touch intact, GT proprioception intact Coordination: finger to nose no bipass Gait/Stance: Posture normal sitting up in bed Motor: Negative for pronator drift of out stretched arms with eyes closed. 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 5/5 , hip flex patellar flex ext 5/5 Results & Data Vital Signs (Past 12 Hours) Vital Signs Temp Pulse Resp BP Pulse Ox 06/09/19 07:00 36.8 C 20 126/78 98 06/09/19 04:52 36.8 C 81 20 152/89 H 96 06/09/19 04:20 101 H 18 125/103 H 96 06/09/19 03:09 111 H 18 129/80 96 Laboratory Results Abnormal lab results 06/08/19 06/09/19 06/09/19 Range/Units 23:05 00:10 00:10 RBC 4.23 L (4.7-6.1) M/uL Hgb 13.4 L (14.0-18.0) g/dL Hct 37.3 L (42-52) % Neut # (Auto) 6.69 H (1.4-6.5) K/uL [place] # (Auto) 0.72 H (0.11-0.59) K/uL BUN 19 H (7-18) mg/dl Glucose 107 H (70-99) mg/dl TIBC (250-450) mcg/dl Transferrin (200-360) mg/dl Total Creatine Kinase 384 H (39-308) U/L Troponin I (0-0.045) ng/ml Urine Blood Trace H (Negative) Lyme Disease IgG Ab (Negative) 06/09/19 06/09/19 06/09/19 Range/Units 04:11 04:11 04:11 RBC (4.7-6.1) M/uL Hgb (14.0-18.0) g/dL Hct (42-52) % Neut # (Auto) (1.4-6.5) K/uL [place] # (Auto) (0.11-0.59) K/uL BUN (7-18) mg/dl Glucose (70-99) mg/dl TIBC 207 L (250-450) mcg/dl Transferrin 161 L (200-360) mg/dl Total Creatine Kinase (39-308) U/L Troponin I 0.048 H* (0-0.045) ng/ml Urine Blood (Negative) Lyme Disease IgG Ab Positive A (Negative) Diagnostic Findings CT head- No acute intracranial abnormality. CTA chest- No acute intrathoracic abnormality, specifically no evidence of pulmonary thromboembolic disease. A few low suspicion solid pulmonary nodules are noted bilaterally measuring up to 4 mm. Follow-up per guidelines Mild nonspecific distal esophageal wall thickening. MRI brain-No acute intracranial pathology. No abnormal enhancement. ankle xray- Lateral soft tissue swelling. Postoperative changes as described above. No evidence for hardware failure/complication. (1) Altered mental status Altered mental status type: unspecified Qualified Code(s): R41.82 - Altered mental status, unspecified
[2019-06-09 23:36] LABS: Rapid Plasma Reagin Nonreactive (Nonreactive)
[2019-06-10] MEDS ORDERED: COUGH DROP (SUGAR FREE) LOZ 24 LOZ/1 BOX BUCCAL PRN (05:04)
[2019-06-10] MEDS ORDERED: COUGH DROP (SUGAR FREE) LOZ 24 LOZ/1 BOX BUCCAL ONE (05:07)
[2019-06-10 06:57] LABS: Basophils # (auto) 0.06 K/uL (0-0.2); Basophils % (auto) 0.7 %; Eosinophils # (auto) 0.22 K/uL (0-0.5); Eosinophils % (auto) 2.7 %; Hematocrit (blood only) 37.8 % (42-52); Hemoglobin 13.2 g/dL (14.0-18.0); Immature Granulocytes # (auto) 0.02 K/uL (0.00-0.02); Immature Granulocytes % (auto) 0.2 %; Lymphocytes # (auto) 2.29 K/uL (1.2-3.4); Lymphocytes % (auto) 28.2 %; Mean Corpuscular Hemoglobin 31.3 pg (25-34); Mean Corpuscular Hgb Conc 34.9 g/dL (32-36); Mean Corpuscular Volume 89.6 fL (80-100); Monocytes # (auto) 0.98 K/uL (0.11-0.59); Monocytes % (auto) 12.1 %; Neutrophils # (auto) 4.56 K/uL (1.4-6.5); Neutrophils % (auto) 56.1 %; Platelet Count 235 K/uL (130-400); RDW Coefficient of Variation 13.2 % (11.5-14.5); RDW Standard Deviation 42.3 fL (36.4-46.3); Red Blood Count 4.22 M/uL (4.7-6.1); White Blood Count 8.13 K/uL (4.8-10.8)
[2019-06-10 07:52] LABS: BUN Creatinine Ratio 11.6 (10-20); Calcium 8.7 mg/dl (8.5-10.1); Creatinine Clr Calc Pharmacy 77.6 ml/min; Est GFR (African American) 104.3; Potassium 3.7 mmol/L (3.5-5.1)
[2019-06-10] MEDS: CEROVITE ADV FORMULA TAB PO SCH (07:58)
[2019-06-10] MEDS: PHENYTOIN SODIUM ER 100 MG CAP PO SCH ×3 (07:59→20:17)
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
--- NOTE | 2019-06-10 14:51 | Hospitalist Progress Note ---
Date of Service June 10, 2019 Assessment & Plan (1) Behavioral change: Altered mental status: 68-year-old male with history of seizure disorder, presented with behavioral changes BEHAVIORAL CHANGES, HISTORY OF EPILEPSY Brain MRI: No acute CVA Dilantin within normal range Neurology consulted, recommend to continue usual Dilantin dosing, recommend outpatient Neuropsychiatric evaluation c/o Neurologist Dr. Cisneros also recommends Psychiatry referral for anxiety, Psych consulted ATYPICAL CHEST PAIN Troponin #1 0.04, #2 negative, #3 negative EKG: No signs of acute ischemia or infarct Echocardiogram: Left ventricular wall motion is normal, mild concentric LVH, EF more than equal or greater than 70%, grade [address] chest: Negative for PE Consider outpatient stress testing persistent Also reports intermittent palpitations occurring when he is upset, consider outpatient cardiac monitoring LEFT ANKLE PAIN HISTORY OF ANKLE SURGERY X-ray of the ankle ordered Orthopedic consultation ordered, recommend PT/OT, outpatient follow up Ice packs to the affected area PT OT ordered RULE OUT LYME DISEASE IgG positive Western blot test pending DVT prophylaxis SCDs patient ambulatory Consider Lovenox if with prolonged hospitalization Disposition Lives at home with family anticipate d/c to home after evaluation by Psych service Subjective ff up for behavioral changes, chest pain, left ankle pain seen sitting up in bed, with significant other at the bedside comfortable, in good spirits calm, oriented x 3, answers all questions appropriately, pleasant states he feels better overall today family states patient's overall mood, disposition, speech is much better chest pain free since admission left foot also feels better denies other symptoms Review of Systems Review of Systems: All systems reviewed & are unremarkable except as noted in HPI & below Physical Exam Physical Exam: General- oriented x 3, not in distress, speaks in sentences with no effort or accessory muscle use Eyes- anicteric Neck- no JVD Lungs- clear breath sounds bilaterally Heart- normal rate, regular rhythm; no murmurs Abdomen- normal bowel sounds, nondistended, soft, nontender Extremities- no pretibial edema, no calf tenderness mild edema left ankle- medial aspect but no erythema/warmth/tenderness, better ROM Neuro- alert, oriented x 3; no gross focal neurologic deficits Skin- warm & dry Results & Data Vital Signs (Past 12 Hours) Vital Signs Temp Pulse Pulse Resp BP BP Pulse Ox 06/10/19 11:44 36.8 C 90 18 153/92 H 94 06/10/19 08:44 105 H 06/10/19 06:46 36.8 C 103 H 16 132/84 96 06/10/19 04:00 36.4 C L 69 21 132/82 98
[2019-06-11] MEDS: CEROVITE ADV FORMULA TAB PO SCH (07:59)
[2019-06-11] MEDS: PHENYTOIN SODIUM ER 100 MG CAP PO SCH ×2 (07:59→14:04)
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
--- NOTE | 2019-06-11 13:37 | Hospitalist Progress Note ---
Date of Service June 11, 2019 Assessment & Plan (1) Behavioral change: Altered mental status: 68-year-old male with history of seizure disorder, presented with behavioral changes BEHAVIORAL CHANGES, HISTORY OF EPILEPSY possible underlying neurocognitive disorder Brain MRI: No acute CVA Dilantin within normal range Neurology consulted, recommend to continue usual Dilantin dosing, recommend outpatient Neuropsychiatric evaluation c/o Neurologist Dr. Cisneros Psychiatry consulted for component of anxiety, Dr. Knowles recommending Remeron 15mg po daily, presentation also felt to be underlying neurocognitive disorder repeat sodium level in 1 month demonstrated significant executive error during inpatient evaluation, recommend NO DRIVING until cleared by Neurologist ATYPICAL CHEST PAIN Troponin #1 0.04, #2 negative, #3 negative EKG: No signs of acute ischemia or infarct Echocardiogram: Left ventricular wall motion is normal, mild concentric LVH, EF more than equal or greater than 70%, grade [address] chest: Negative for PE Consider outpatient stress testing Also reports intermittent palpitations occurring when he is upset, consider outpatient cardiac monitoring LEFT ANKLE PAIN HISTORY OF ANKLE SURGERY X-ray of the ankle: No acute fracture or dislocation within the left ankle. Prior internal fixation of a distal left fibular fracture with a cortical plate and screws. The hardware appears intact. There is decreased mineralization within the distal basilar tip without definite periprosthetic lucency. There is lateral soft tissue swelling. No bony destruction to suggest osteomyelitis. P lantar and posterior calcaneal spurs are present. No radiopaque foreign bodies. Orthopedic consultation ordered, recommend PT/OT, outpatient follow up Ice packs to the affected area PT OT ordered RULE OUT LYME DISEASE IgG positive Western blot test pending, ff up please Disposition d/c home ff up with PCP, Neurologist this week case and plan of care discussed with patient and his family all questions answered they are agreeable, understanding, comfortable with the plan of care Subjective ff up for behavioral changes seen with family at bedside comfortable, in good spirits, comfortable states he feels fine overall oriented x 3, answers questions appropriately no chest pain, dyspnea, palpitations states he is ready for discharge today, patient's family agrees Review of Systems Review of Systems: All systems reviewed & are unremarkable except as noted in HPI & below Physical Exam Physical Exam: General- oriented x 3, not in distress, speaks in sentences with no effort or accessory muscle use Eyes- anicteric Neck- no JVD Lungs- clear breath sounds no rales/wheezing Heart- normal rate, regular rhythm; no murmurs Abdomen- normal bowel sounds, nondistended, soft, nontender Extremities- no pretibial edema, no calf tenderness Neuro- alert, oriented x 3; no gross focal neurologic deficits Skin- warm & dry Results & Data Vital Signs (Past 12 Hours) Vital Signs Temp Pulse Pulse Resp BP BP Pulse Ox 06/11/19 11:00 36.9 C 90 18 160/89 H 93 06/11/19 08:26 91 H 06/11/19 07:00 36.8 C 62 18 126/86 96 06/11/19 04:00 36.7 C 93 H 21 138/80 97
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
[2019-06-11] MEDS ORDERED: MIRTAZAPINE TAB 15 MG TAB PO SCH (21:00)
[2019-06-16 01:32] LABS: 18KDIGG Band NONREACTIVE (NONREACTIVE); 23KDIGG Band REACTIVE (NONREACTIVE); 23KDIGM Band REACTIVE (NONREACTIVE); 28KDIGG Band REACTIVE (NONREACTIVE); 30KDIGG Band NONREACTIVE (NONREACTIVE); 39KDIGG Band REACTIVE (NONREACTIVE); 39KDIGM Band REACTIVE (NONREACTIVE); 41KDIGG Band REACTIVE (NONREACTIVE); 41KDIGM Band NONREACTIVE (NONREACTIVE); 45KDIGG Band NONREACTIVE (NONREACTIVE); 58KDIGG Band REACTIVE (NONREACTIVE); 66KDIGG Band NONREACTIVE (NONREACTIVE); 93KDIGG Band NONREACTIVE (NONREACTIVE); Lyme Antibodies, WB IgG POSITIVE (NEGATIVE); Lyme Antibodies, WB IgM POSITIVE (NEGATIVE)
== END 2019-06-11 14:24 | disposition home or self-care (01) ==
LOC: ED 22:55 → 2N 22:55

== ENCOUNTER 2019-06-21 19:22 | Inpatient (IN) ==
[2019-06-21] MEDS ORDERED: cefTRIAXone SODIUM 2,000 MG/70 ML BAG IV STA (20:11)
--- NOTE | 2019-06-21 20:29 | XRay Report ---
XR chest 1V portable HISTORY: weakness COMPARISON: Chest 08/30/2016. Chest CTA 06/09/2019. FINDINGS: No focal lung consolidations to suggest pneumonia. No evidence for pulmonary edema. No pleu ral effusions. No pneumothorax. The heart is normal in size. A 9 mm dense nodule within the right kervin g apex appears to represent a focus of calcification posterior to the clavicle. This remains unchange d. IMPRESSION: No significant change compared to the prior study. No acute process. Electronically signed by: Antione Castaneda M.D. 06/21/2019 8:28 PM
[2019-06-21 20:52] LABS: Basophils # (auto) 0.04 K/uL (0-0.2); Basophils % (auto) 0.7 %; Eosinophils # (auto) 0.19 K/uL (0-0.5); Eosinophils % (auto) 3.3 %; Hematocrit (blood only) 34.4 % (42-52); Hemoglobin 12.1 g/dL (14.0-18.0); Lymphocytes # (auto) 1.71 K/uL (1.2-3.4); Lymphocytes % (auto) 29.6 %; Mean Corpuscular Hemoglobin 30.8 pg (25-34); Mean Corpuscular Hgb Conc 35.2 g/dL (32-36); Mean Corpuscular Volume 87.5 fL (80-100); Mean Platelet Volume 8.9 fL (7.4-10.4); Monocytes # (auto) 0.77 K/uL (0.11-0.59); Monocytes % (auto) 13.3 %; Neutrophils # (auto) 3.06 K/uL (1.4-6.5); Neutrophils % (auto) 53.1 %; Platelet Count 244 K/uL (130-400); RDW Coefficient of Variation 12.8 % (11.5-14.5); RDW Standard Deviation 41.5 fL (36.4-46.3); Red Blood Count 3.93 M/uL (4.7-6.1); White Blood Count 5.77 K/uL (4.8-10.8)
[2019-06-21 21:09] LABS: Alanine Aminotransferase 28 U/L (12-78); Albumin Level 3.6 gm/dl (3.4-5.0); Aspartate Aminotransferase 16 U/L (15-37); BUN Creatinine Ratio 14.8 (10-20); Blood Urea Nitrogen 11 mg/dl (7-18); Calcium 8.6 mg/dl (8.5-10.1); Carbon Dioxide 27 mmol/L (21-32); Chloride 101 mmol/L (98-107); Est GFR (African American) 109.8; Est GFR (Non-African American) 94.8; Glucose 106 mg/dl (70-99); Magnesium 1.9 mg/dl (1.8-2.4); Potassium 4.1 mmol/L (3.5-5.1); Sodium 134 mmol/L (136-145)
[2019-06-21 21:20] LABS: Albumin Globulin Ratio 1.2 (0.9-2); Alkaline Phosphatase 91 U/L (45-117); Bilirubin,Total 0.2 mg/dl (0.2-1); Total Protein 6.6 gm/dl (6.4-8.2); Troponin I < 0.015 ng/ml (0-0.045)
--- NOTE | 2019-06-21 22:21 | History & Physical Report ---
Date of Service June 21, 2019 Assessment & Plan (1) Behavioral change: With abnormal Lyme test Possible [employer] Lyme Patient not septic. epilepsy, controlled on Dilantin Driving privileges currently suspended as per Neuro recommendations. hyperlipidemia on statin Rx chronic anemia, hemoglobin at baseline past tobacco abuse GMF IV Ceftriaxone, ID consult for poss [employer] Lyme Clarify need for Trazodone taper with [facility] [place] (Dr. Emmy Abel). DVT prophylaxis. Lovenox subcu Full code Patient's partner requesting updates from providers. Ms. Fina Riddle, contact #[phone]. History of Present Illness Chief Complaint: Abnormal Lyme test Primary Care Provider: Roshan Temple MD History obtained from patient and records. Medical history significant for epilepsy, hyperlipidemia, chronic anemia (baseline hemoglobin 12-13), past tobacco abuse,. Recent confinement June [id number] for behavioral change attributed to possible underlying neurocognitive disorder. Outpatient neuropsychiatric evaluation recommended by neurologist. Remeron recommended by psychiatry for anxiety. Patient instructed not to drive until cleared by neurologist. Lyme test IgG noted to be positive during confinement. Although exposed to ticks, patient cannot recall exact date of tick bite. Intermittent agitation at home. PCP had queried [facility] [place] via [facility] regarding patient's case. Psychiatry recommended continuing Remeron, stopping trazodone. Patient slated to see psychiatry outpatient next month. Positive Lyme IgM Western blot (send out test) resulted today. Patient requested by hospitalist cotton program technician to proceed to ER for further evaluation. IV Ceftriaxone given at the emergency room. Medical History as above Surgical History : Carpal tunnel surgery, vasectomy, ankle surgery Family History : Laryngeal cancer, CAD, hyperlipidemia, hypertension Personal/Social history : Past tobacco abuse, occasional alcohol intake, retired [employer] employee Allergies Allergy/AdvReac Type Severity Reaction Status Date / Time No Known Allergies Allergy Verified 06/21/19 21:41 Home Medications Home Medications Medication Instructions Recorded Confirmed Type ascorbic acid (vitamin C) [Vitamin 500 mg PO DAILY 06/09/19 06/21/19 History C] atorvastatin 40 mg PO DAILY 06/09/19 06/21/19 History multivitamin with minerals 1 tab PO DAILY 06/09/19 06/21/19 History phenytoin sodium extended 100 mg PO TID 06/09/19 06/21/19 History [Dilantin Extended] vitamin E 400 unit PO DAILY 06/09/19 06/21/19 History mirtazapine 15 mg PO HS 30 Days #30 tab 06/11/19 06/21/19 Rx trazodone 50 mg PO HS 06/21/19 06/21/19 History Past Med/Surg History Medical History Behavioral change Displaced fracture of lateral malleolus of left fibula, sequela Epilepsy (Chronic) Seizure (Acute) Ankle fracture, left Family History Mother Anxiety Other No significant family history Social History Preferred Language: Guyanese Communication Ability: Effective 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 Required: No Beliefs That Will Affect Care: None Current Living Situation: Significant Other Other Information That Helps Us Care for You: No Feels Safe at Home: Yes Safety Concerns: Feels Safe At This Time Smoking Status: Former smoker Do You Dip or Chew Tobacco: No ; Hx Substance Use: No Review of Systems Review of Systems: As per HPI, all 10 systems reviewed, all other ROS negative Physical Exam Physical Exam: GENERAL: Comfortable, obese, slightly anxious, no respiratory distress SKIN: Pallor , warm HEENT: Bespectacled, pale palpebral conjunctivae, no ptosis, dry buccal mucosa NECK : Supple, short neck, no tenderness CHEST : CTA, no tenderness HEART : RRR, no obvious murmurs ABDOMEN: Some distention, nontender EXTREMITIES : No LE swelling/tenderness, no other conspicuous deformities noted NEUROLOGIC : Coherent, no facial asymmetry, no other gross focality Results & Data Vital Signs (Past 12 Hours) Vital Signs Temp Pulse Resp BP Pulse Ox 06/21/19 22:02 73 22 121/71 96 06/21/19 21:31 75 12 96/57 L 97 06/21/19 21:01 74 18 120/53 L 95 06/21/19 20:41 71 96 06/21/19 20:31 79 18 99/85 L 06/21/19 20:01 77 17 115/66 96 06/21/19 19:49 80 16 130/70 95 06/21/19 19:34 36.7 C 89 18 125/88 95 Laboratory Results Laboratory Results WBC 5.77 K/uL (4.8-10.8) 06/21/19 20: RBC 3.93 M/uL (4.7-6.1) L 06/21/19 20: Hgb 12.1 g/dL (14.0-18.0) L 06/21/19 20: Hct 34.4 % (42-52) L 06/21/19 20: MCV 87.5 fL (80-100) 06/21/19 20: MCH 30.8 pg (25-34) 06/21/19 20: MCHC 35.2 g/dL (32-36) 06/21/19 20: RDW Std Deviation 41.5 fL (36.4-46.3) 06/21/19 20: RDW Coeff of Bertha 12.8 % (11.5-14.5) 06/21/19 20: Plt Count 244 K/uL (130-400) 06/21/19 20: MPV 8.9 fL (7.4-10.4) 06/21/19 20:31 Immature Gran % (Auto) 0.0 % 06/21/19 20: Neut % (Auto) 53.1 % 06/21/19 20: Lymph % (Auto) 29.6 % 06/21/19 20: [place] % (Auto) 13.3 % 06/21/19 20:31 Eos % (Auto) 3.3 % 06/21/19 20: Baso % (Auto) 0.7 % 06/21/19: Immature Gran # (Auto) 0.00 K/uL (0.00-0.02) 06/21/19 20: Neut # (Auto) 3.06 K/uL (1.4-6.5) 06/21/19 20: Lymph # (Auto) 1.71 K/uL (1.2-3.4) 06/21/19 20: [place] # (Auto) 0.77 K/uL (0.11-0.59) H 06/21/19 20: Eos # (Auto) 0.19 K/uL (0-0.5) 06/21/19 20: Baso # (Auto) 0.04 K/uL (0-0.2) 06/21/19 20:31 Sodium 134 mmol/L (136-145) L 06/21/19 20:31 Potassium 4.1 mmol/L (3.5-5.1) 06/21/19 20:31 Chloride 101 mmol/L (98-107) 06/21/19 20:31 Carbon Dioxide 27 mmol/L (21-32) 06/21/19 20:31 Anion Gap 6.0 (3-11) 06/21/19 20:31 BUN 11 mg/dl (7-18) 06/21/19 20:31 Creatinine 0.74 mg/dl (0.6-1.4) 06/21/19 20:31 Est Cr Clr Drug Dosing 89.0 ml/min 06/21/19 20:31 Est GFR ( Amer) 109.8 06/21/19 20:31 Est GFR (Non-Af Amer) 94.8 06/21/19 20:31 BUN/Creatinine Ratio 14.8 (10-20) 06/21/19 20:31 Glucose 106 mg/dl (70-99) H 06/21/19 20:31 Calcium 8.6 mg/dl (8.5-10.1) 06/21/19 20:31 Magnesium 1.9 mg/dl (1.8-2.4) 06/21/19 20:31 Total Bilirubin 0.2 mg/dl (0.2-1) 06/21/19 20:31 AST 16 U/L (15-37) 06/21/19 20:31 ALT 28 U/L (12-78) 06/21/19 20:31 Alkaline Phosphatase 91 U/L (45-117) 06/21/19 20:31 Troponin I < 0.015 ng/ml (0-0.045) 06/21/19 20:31 Total Protein 6.6 gm/dl (6.4-8.2) 06/21/19 20:31 Albumin 3.6 gm/dl (3.4-5.0) 06/21/19 20:31 Globulin 3.0 gm/dl (2.5-4.0) 06/21/19 20:31 Albumin/Globulin Ratio 1.2 (0.9-2) 06/21/19 20: TSH 2.200 uIu/ml (0.300-4.500) 06/21/19 20:31 Phenytoin 10.3 mcg/ml (10-20) 06/21/19 20:31 Diagnostic Findings Chest x-ray: No focal lung consolidations to suggest pneumonia. No evidence for pulmonary edema. No pleural effusions. No pneumothorax. The heart is normal in size. A 9 mm dense nodule within the right lung apex appears to represent a focus of calcification posterior to the clavicle. This remains unchanged.
--- NOTE | 2019-06-21 23:20 | Emergency Department Note ---
Entered by Ivet Lozano acting as a scribe for Roshan Zhang MD ED Provider Note CHIEF COMPLAINT: Illness HISTORY OF PRESENT ILLNESS: The patient is a 68 year old male presenting to the Emergency Department complaining of a persistent illness starting 9 days ago. 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 He states that he has frequent headaches. He explains that he has chest pain and abdominal pain. He notes that he has been confused and has to search for his thoughts sometimes. He adds that he has been diaphoretic. The patient reports that he has ankle pain but that this has been an ongoing problem. He states that he has not been taking antibiotics for his symptoms. He notes that he follows with Dr. Simmons PCP. Pt denies LOC, fevers, chills, visual changes, neck pain, breathing difficulties, back pain, melena, hematochezia, urinary symptoms, numbness, weakness, lymphadenopathy, rash, or other complaints. REVIEW OF SYSTEMS: See HPI for pertinent positives and negatives. A total of ten systems were reviewed and were otherwise negative. PMHx/PSHx: See past medical and surgical history list. SOCIAL HISTORY: Patient lives at home. PHYSICAL EXAM: GENERAL: Awake, alert, well-appearing, in no distress HENT: Normocephalic, atraumatic. Oropharynx unremarkable. EYES: PERRL. Normal conjunctiva. Sclera non-icteric. NECK: Inspection normal. Non-tender. Supple. No nuchal rigidity. FROM. No masses. RESPIRATORY: Clear to auscultation. No wheezes. No rales. Normal respiratory effort. CARDIAC: Normal rate. Normal rhythm. No murmurs. No rubs. Extremities warm and well perfused. Pulses equal. No JVD. GI: Soft, non-distended. No tenderness to palpation. No rebound or guarding. No masses. RECTAL: Deferred. MUSCULOSKELETAL: Atraumatic. Chest examination reveals no tenderness. The back is symmetrical on inspection without obvious abnormality. There is no CVA tenderness to palpation. No joint edema. LOWER EXTREMITIES: Calves are equal size bilaterally and non-tender. No edema. No discoloration. Boot on left foot. NEURO: Normal sensorium. No sensory or motor deficits noted. SKIN: No rash or jaundice noted. EMERGENCY DEPARTMENT COURSE: 1954: Past medical records reviewed. The patient was evaluated in room C1B, and a complete history and physical examination were performed. 2007: EMR reviewed. The patient had a brain MRI and CT which were both negative. He saw neurologist. He was discharged from the hospital over 1 week ago. 2039: I discussed the patients case with Dr. Shy muñoz. He will evaluate the patient for further management. MEDICAL DECISION MAKING: Patient presents back to the emergency department complaining of some confusion and an abnormal outpatient blood work. He was found to have a positive Lyme Western blot. The patient has had some intermittent periods of confusion, headache and change in behavior. His work-up with the last admission did not reveal any significant findings. Differential includes neuro Lyme, acute Lyme disease, electrolyte abnormality, intracranial process, cardiac sources, as well as others. The patient had a nonfocal neurologic examination. He underwent significant amount of imaging on his last admission which did not reveal any significant abnormalities. Given his positive Western blot and symptoms I discussed treatment in the hospital with high-dose Rocephin. He has no fever, headache or meningeal findings at this point in time. He has had intermittent headaches. The patient felt comfortable with the plan. I gave my usual and customary discussion regarding this issue. A consultation was made with the [facility] hospitalist service. The patient was evaluated in the ER for further management. IMPRESSION: Confusion, Lyme disease PLAN: Being Evaluated by a Hospitalist The scribe's documentation has been prepared under my direction and personally reviewed by me in its entirety. I confirm that the note above accurately reflects all work, treatment, procedures, and medical decision making performed by me. Impression & Plan Confusion, Lyme disease Past Med/Surg History Medical History Behavioral change Displaced fracture of lateral malleolus of left fibula, sequela Epilepsy (Chronic) Seizure (Acute) Ankle fracture, left Family History Mother Anxiety Other No significant family history Social History Preferred Language: Panamanian Communication Ability: Effective Encyclopedia Research Worker Required: No Beliefs That Will Affect Care: None Current Living Situation: Significant Other Feels Safe at Home: Yes Smoking Status: Former smoker Hx Substance Use: No Results & Data Vital Signs Vital Signs - 24 hr 06/21/19 19:34 06/21/19 19:49 06/21/19 20:01 Temperature 36.7 C Temperature Source Oral Sepsis Recent Fever Within 48 Hours No Sepsis New/Unexplained Change in Mental Status No Sepsis Action Taken by Nursing No Action Required Pulse Rate 89 80 77 Pulse Rate from SpO2 Sensor 80 77 Pulse Rhythm Respiratory Rate 18 16 17 Blood Pressure 125/88 130/70 115/66 Blood Pressure Mean 100 90 82 Pulse Oximetry 95 95 96 Oxygen Delivery Method Room Air 06/21/19 20:31 06/21/19 20:41 06/21/19 21:01 Temperature Temperature Source Sepsis Recent Fever Within 48 Hours Sepsis New/Unexplained Change in Mental Status Sepsis Action Taken by Nursing Pulse Rate 79 71 74 Pulse Rate from SpO2 Sensor 75 Pulse Rhythm Regular Respiratory Rate 18 18 Blood Pressure 99/85 L 120/53 L Blood Pressure Mean 89 75 Pulse Oximetry 96 95 Oxygen Delivery Method Room Air 06/21/19 21:31 06/21/19 22:02 Temperature Temperature Source Sepsis Recent Fever Within 48 Hours Sepsis New/Unexplained Change in Mental Status Sepsis Action Taken by Nursing Pulse Rate 75 73 Pulse Rate from SpO2 Sensor 75 74 Pulse Rhythm Respiratory Rate 12 22 Blood Pressure 96/57 L 121/71 Blood Pressure Mean 70 87 Pulse Oximetry 97 96 Oxygen Delivery Method Home Medications Current Medication List: was personally reviewed by me Laboratory Data Attestation: I reviewed the patient's lab results. Result diagrams: 06/21/19 20:31 06/21/19 20:31 Lab Results 06/21/19 06/21/19 06/21/19 Range/Units 20:31 20:31 20:31 WBC 5.77 (4.8-10.8) K/uL RBC 3.93 L (4.7-6.1) M/uL Hgb 12.1 L (14.0-18.0) g/dL Hct 34.4 L (42-52) % MCV 87.5 (80-100) fL MCH 30.8 (25-34) pg MCHC 35.2 (32-36) g/dL RDW Std Deviation 41.5 (36.4-46.3) fL RDW Coeff of Bertha 12.8 (11.5-14.5) % Plt Count 244 (130-400) K/uL MPV 8.9 (7.4-10.4) fL Immature Gran % (Auto) 0.0 % Neut % (Auto) 53.1 % Lymph % (Auto) 29.6 % Stevens % (Auto) 13.3 % Eos % (Auto) 3.3 % Baso % (Auto) 0.7 % Immature Gran # (Auto) 0.00 (0.00-0.02) K/uL Neut # (Auto) 3.06 (1.4-6.5) K/uL Lymph # (Auto) 1.71 (1.2-3.4) K/uL Stevens # (Auto) 0.77 H (0.11-0.59) K/uL Eos # (Auto) 0.19 (0-0.5) K/uL Baso # (Auto) 0.04 (0-0.2) K/uL Sodium 134 L (136-145) mmol/L Potassium 4.1 (3.5-5.1) mmol/L Chloride 101 (98-107) mmol/L Carbon Dioxide 27 (21-32) mmol/L Anion Gap 6.0 (3-11) BUN 11 (7-18) mg/dl Creatinine 0.74 (0.6-1.4) mg/dl Est Cr Clr Drug Dosing 89.0 ml/min Est GFR ( Amer) 109.8 Est GFR (Non-Af Amer) 94.8 BUN/Creatinine Ratio 14.8 (10-20) Glucose 106 H (70-99) mg/dl Calcium 8.6 (8.5-10.1) mg/dl Magnesium 1.9 (1.8-2.4) mg/dl Total Bilirubin 0.2 (0.2-1) mg/dl AST 16 (15-37) U/L ALT 28 (12-78) U/L Alkaline Phosphatase 91 (45-117) U/L Troponin I < 0.015 (0-0.045) ng/ml Total Protein 6.6 (6.4-8.2) gm/dl Albumin 3.6 (3.4-5.0) gm/dl Globulin 3.0 (2.5-4.0) gm/dl Albumin/Globulin Ratio 1.2 (0.9-2) TSH 2.200 (0.300-4.500) uIu/ml Phenytoin 10.3 (10-20) mcg/ml Administered Medications Discontinued Medications Ceftriaxone Sodium (Rocephin) 2,000 mg in 70 mls @ 140 mls/hr IV NOW STA Stop: 06/21/19 20:40 Last Infusion: 06/21/19 21:18 Dose: 0 mls/hr Documented by: [id number] Admin: 06/21/19 20:48 Dose: 140 mls/hr Documented by: [id number] Imaging Data Radiologist's Impression: Radiology results as stated below per my review and the radiologist's interpretation: XR chest 1V portable HISTORY: weakness COMPARISON: Chest 08/30/2016. Chest CTA 06/09/2019. FINDINGS: No focal lung consolidations to suggest pneumonia. No evidence for pulmonary edema. No pleural effusions. No pneumothorax. The heart is normal in size. A 9 mm dense nodule within the right lung apex appears to represent a focus of calcification posterior to the clavicle. This remains unchanged. IMPRESSION: No significant change compared to the prior study. No acute process. Electronically signed by: Antione Castaneda M.D. 06/21/2019 8:28 PM ECG Data Attestation: I personally reviewed and interpreted this ECG as follows: Indication: SOB/dyspnea Rate (beats per minute): 78 Rhythm: normal sinus Findings: + other (Normal QRS. Normal axis.) and + T-wave inversion; no PAC and no PVC Blood Pressure Blood Pressure Findings: Elevated blood pressure Blood Pressure Disposition: further management by hospitalist Discharge Plan Visit Data Chief Complaint: Illness Stated Complaint: LYME DISEASE ED Provider: Roshan Zhang Discharge Problem: Confusion, Lyme disease Patient Disposition: Being Evaluated by Hospitalist Forms Stand Alone Forms: [facility] Prescriptions Prescriptions: No Action atorvastatin 40 mg Tablet 40 mg PO DAILY RF: 0 phenytoin sodium extended [Dilantin Extended] 100 mg Capsule 100 mg PO TID RF: 0 ascorbic acid (vitamin C) [Vitamin C] 500 mg Tablet 500 mg PO DAILY RF: 0 multivitamin with minerals Tablet 1 tab PO DAILY RF: 0 vitamin E 400 unit Capsule 400 unit PO DAILY RF: 0 mirtazapine 15 mg Tablet 15 mg PO HS 30 Days Qty: 30 RF: 0 trazodone 50 mg tablet 50 mg PO HS RF: 0 Referrals Referrals: Roshan Temple MD [Primary Care Provider] - The scribe's documentation has been prepared under my direction and personally reviewed by me in its entirety. I confirm that the note above accurately reflects all work, treatment, procedures, and medical decision making performed by me.
[2019-06-21] MEDS ORDERED: SODIUM CHLORIDE 0.9% 1000ML 1,000 ML IV ONE (23:49)
[2019-06-21] MEDS ORDERED: PROMETHAZINE HCL 12.5 MG in SODIUM CHLORIDE 0.9% 50 ML IV PRN (23:49)
[2019-06-21] MEDS ORDERED: OXYCODONE HCL IR 5 MG TAB (IMMEDIATE RELEASE) PO PRN (23:49)
[2019-06-21] MEDS ORDERED: ACETAMINOPHEN 325 MG TAB PO PRN (23:49)
[2019-06-22] MEDS: PHENYTOIN SODIUM ER 100 MG CAP PO SCH ×4 (00:29→19:46)
[2019-06-22 06:01] LABS: Basophils # (auto) 0.04 K/uL (0-0.2); Basophils % (auto) 0.5 %; Eosinophils # (auto) 0.19 K/uL (0-0.5); Eosinophils % (auto) 2.2 %; Hematocrit (blood only) 36.9 % (42-52); Hemoglobin 12.8 g/dL (14.0-18.0); Immature Granulocytes # (auto) 0.02 K/uL (0.00-0.02); Immature Granulocytes % (auto) 0.2 %; Lymphocytes # (auto) 1.41 K/uL (1.2-3.4); Lymphocytes % (auto) 16.4 %; Mean Corpuscular Hemoglobin 30.8 pg (25-34); Mean Corpuscular Hgb Conc 34.7 g/dL (32-36); Mean Corpuscular Volume 88.7 fL (80-100); Mean Platelet Volume 9.1 fL (7.4-10.4); Monocytes # (auto) 0.71 K/uL (0.11-0.59); Monocytes % (auto) 8.2 %; Neutrophils # (auto) 6.24 K/uL (1.4-6.5); Neutrophils % (auto) 72.5 %; Platelet Count 242 K/uL (130-400); RDW Coefficient of Variation 13.2 % (11.5-14.5); RDW Standard Deviation 42.5 fL (36.4-46.3); Red Blood Count 4.16 M/uL (4.7-6.1); White Blood Count 8.61 K/uL (4.8-10.8)
[2019-06-22 06:32] LABS: BUN Creatinine Ratio 12.1 (10-20); Calcium 8.8 mg/dl (8.5-10.1); Creatinine Clr Calc Pharmacy 96.5 ml/min; Est GFR (African American) 111.1; Est GFR (Non-African American) 95.9; Potassium 3.8 mmol/L (3.5-5.1)
[2019-06-22] MEDS: ATORVASTATIN 40 MG TAB PO SCH (08:14)
[2019-06-22] MEDS: ENOXAPARIN INJ 40 MG/0.4 ML SYR SQ SCH (08:14)
[2019-06-22] MEDS: CEROVITE ADV FORMULA TAB PO SCH (08:16)
--- NOTE | 2019-06-22 10:09 | Infectious Disease Consult ---
Date of Consultation June 22, 2019 Assessment & Plan (1) Lyme disease: 68 yo male with progressive neurocognitive decline with positive Lyme serology. 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 Would favor LP to obtain Lyme studies (PCR, Lyme CSF antibody production). Continue ceftriaxone for now. Will discuss. (2) Behavioral change: History of Present Illness Reason for Consultation: Possible [employer] TRUCK DRIVER Lyme Disease Attending Physician: Tonio Gardiner MD History of Present Illness Patient seen for possibility of [employer]ED TRUCK DRIVER Lyme disease. All in and outpatient records, laboratory data, microbiologic data, and radiologic studies reviewed. Most history obtained from records as patient unable to provide adequate history. 68-year-old male with history of epilepsy has been suffering from behavioral disorder and neurocognitive decline over the last several months. He was previously admitted to the hospital and underwent work-up including MRI scan which was unremarkable. He has developed worsening confusion and memory loss, and was found to have positive Lyme serology admitted to the hospital for further management. No report of prior erythema migrans rash, previous tick bites. He has been started empirically on IV ceftriaxone. Western blot assay for Lyme is positive both IgM and IgG. Patient offering no specific complaints. Allergies Allergy/AdvReac Type Severity Reaction Status Date / Time No Known Allergies Allergy Verified 06/21/19 21:41 Patient History Medical History Behavioral change Displaced fracture of lateral malleolus of left fibula, sequela Epilepsy (Chronic) Seizure (Acute) Ankle fracture, left Family History Mother Anxiety Other No significant family history Social History Preferred Language: Vincentian Communication Ability: Effective Hand Plate Stacker Required: No Beliefs That Will Affect Care: None Current Living Situation: Significant Other Other Information That Helps Us Care for You: No Feels Safe at Home: Yes Safety Concerns: Feels Safe At This Time Smoking Status: Former smoker Do You Dip or Chew Tobacco: No ; Hx Substance Use: No Review of Systems Review of Systems: Unobtainable due to cognitive status Physical Exam Constitutional: WD/WN, vitals as above comfortable; no acute distress Eyes: PERRL, conjunctivae normal, anicteric sclerae ENMT: external ear and nose normal, oropharynx normal Neck: trachea midline, no thyromegaly neck nontender Respiratory: normal respiratory effort, lungs clear to auscultation normal percussion; does not use accessory muscles Cardiovascular: Rate/Rhythm: regular rate and regular rhythm Heart Sounds: normal S1 and normal S2; no gallop, no murmur and no cardiac rub Vessels: normal peripheral pulses; no JVD Gastrointestinal (Abdomen): normal bowel sounds, soft, nontender, no hepatosplenomegaly Musculoskeletal: no cyanosis or clubbing, extremities motor strength 5/5 Spine: thoracic spine normal to inspection and lumbar spine normal to inspection; no cervical spinal tenderness Skin: no rashes, warm and dry normal turgor; no lesions Neurologic: patellar DTR's 2+ bilat, sensation intact no focal motor deficits Speech / Cognition: + abnormal cognition Psychiatric: Orientation: alert, oriented x 3 and cooperative Lymphatic: no cervical or axillary lymphadenopathy no inguinal lymphadenopathy Results & Data Vital Signs (Past 12 Hours) Vital Signs Temp Pulse Pulse Resp BP BP Pulse Ox 06/22/19 08:41 36.7 C 80 22 135/79 96 06/21/19 23:40 36.5 C 79 20 124/75 96 06/21/19 23:31 74 18 112/79 94 06/21/19 23:01 75 22 110/65 96 06/21/19 22:31 73 14 123/78 96 06/21/19 22:02 73 22 121/71 96 Laboratory Results Short CBC 06/21/19 06/22/19 Range/Units 20:31 05:17 WBC 5.77 8.61 (4.8-10.8) K/uL Hgb 12.1 L 12.8 L (14.0-18.0) g/dL Hct 34.4 L 36.9 L (42-52) % Plt Count 244 242 (130-400) K/uL BMP 06/21/19 06/22/19 20:31 05:17 Sodium 134 L 136 Potassium 4.1 3.8 Chloride 101 103 Carbon Dioxide 27 27 BUN 11 9 Creatinine 0.74 0.72 Glucose 106 H 90 Calcium 8.6 8.8 Cardiac Enzymes 06/21/19 Range/Units 20:31 Troponin I < 0.015 (0-0.045) ng/ml Liver Function 06/21/19 Range/Units 20:31 Total Bilirubin 0.2 (0.2-1) mg/dl AST 16 (15-37) U/L ALT 28 (12-78) U/L Alkaline Phosphatase 91 (45-117) U/L Albumin 3.6 (3.4-5.0) gm/dl Diagnostic Findings XR chest 1V portable HISTORY: weakness COMPARISON: Chest 08/30/2016. Chest CTA 06/09/2019. FINDINGS: No focal lung consolidations to suggest pneumonia. No evidence for pulmonary edema. No pleural effusions. No pneumothorax. The heart is normal in size. A 9 mm dense nodule within the right lung apex appears to represent a focus of calcification posterior to the clavicle. This remains unchanged. IMPRESSION: No significant change compared to the prior study. No acute process. Electronically signed by: Antione Castaneda M.D. 06/21/2019 8:28 PM Dictated: 06/21/192025 Transcribed: 06/21/192025 PG Care Time/CCT Total # of Minutes Spent Total Time Spent with Patient: Total time spent is greater than 50% in coordina tion of care (as documented) at patient's floor/unit and/or counseling patient:
--- NOTE | 2019-06-22 12:08 | Hospitalist Progress Note ---
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 hyperlipidemia on statin Rx chronic anemia, hemoglobin at baseline past tobacco abuse DVT prophylaxis. 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 Seen with family at bedside Patient is awake and alert, answers most questions appropriately Family members report patient has been more agitated, paranoid behavior, sleeping at home Patient denies headache, dizziness, chest pain Denies left ankle pain slightly better compared to last Occasional chills No other symptoms Review of Systems Review of Systems: All systems reviewed & are unremarkable except as noted in HPI & below Physical Exam Physical Exam: General- oriented x 3, not in distress, speaks in sentences with no effort or accessory muscle use Head- atraumatic Eyes- PERRL, EOMI, anicteric ENT- oropharynx clear Neck- supple, no JVD, no adenopathy, no thyromegaly; carotids +2/2, no bruits appreciated Lungs- clear to auscultation bilaterally, no rales/wheezes Heart- normal rate, regular rhythm; no murmur, no gallop, no rub appreciated Abdomen- normal bowel sounds, nondistended, soft, nontender, no masses or hep atosplenomegaly Extremities- no pretibial edema, no calf tenderness; peripheral pulses intact Left ankle-minimal edema, full range of motion, no erythema/warmth Neuro- alert, oriented x 3; CN 2-12 grossly intact; motor 5/5 bilaterally;sensation 100% on all extremities; no other gross focal neurologic deficits Skin- warm & dry Psych-seems to be anxious, Results & Data Vital Signs (Past 12 Hours) Vital Signs Temp Pulse Resp BP Pulse Ox 06/22/19 08:41 36.7 C 80 22 135/79 96 Laboratory Results Laboratory Results - last 24 hr 06/21/19 06/21/19 06/21/19 20:31 20:31 20:31 WBC 5.77 RBC 3.93 L Hgb 12.1 L Hct 34.4 L MCV 87.5 MCH 30.8 MCHC 35.2 RDW Std Deviation 41.5 RDW Coeff of Bertha 12.8 Plt Count 244 MPV 8.9 Immature Gran % (Auto) 0.0 Neut % (Auto) 53.1 Lymph % (Auto) 29.6 Whitfield % (Auto) 13.3 Eos % (Auto) 3.3 Baso % (Auto) 0.7 Immature Gran # (Auto) 0.00 Neut # (Auto) 3.06 Lymph # (Auto) 1.71 Whitfield # (Auto) 0.77 H Eos # (Auto) 0.19 Baso # (Auto) 0.04 Sodium 134 L Potassium 4.1 Chloride 101 Carbon Dioxide 27 Anion Gap 6.0 BUN 11 Creatinine 0.74 Est Cr Clr Drug Dosing 89.0 Est GFR ( Amer) 109.8 Est GFR (Non-Af Amer) 94.8 BUN/Creatinine Ratio 14.8 Glucose 106 H Calcium 8.6 Magnesium 1.9 Total Bilirubin 0.2 AST 16 ALT 28 Alkaline Phosphatase 91 Troponin I < 0.015 Total Protein 6.6 Albumin 3.6 Globulin 3.0 Albumin/Globulin Ratio 1.2 TSH 2.200 Phenytoin 10.3 06/22/19 06/22/19 05:17 05:17 WBC 8.61 RBC 4.16 L Hgb 12.8 L Hct 36.9 L MCV 88.7 MCH 30.8 MCHC 34.7 RDW Std Deviation 42.5 RDW Coeff of Bertha 13.2 Plt Count 242 MPV 9.1 Immature Gran % (Auto) 0.2 Neut % (Auto) 72.5 Lymph % (Auto) 16.4 Whitfield % (Auto) 8.2 Eos % (Auto) 2.2 Baso % (Auto) 0.5 Immature Gran # (Auto) 0.02 Neut # (Auto) 6.24 Lymph # (Auto) 1.41 Whitfield # (Auto) 0.71 H Eos # (Auto) 0.19 Baso # (Auto) 0.04 Sodium 136 Potassium 3.8 Chloride 103 Carbon Dioxide 27 Anion Gap 6.0 BUN 9 Creatinine 0.72 Est Cr Clr Drug Dosing 96.5 Est GFR ( Amer) 111.1 Est GFR (Non-Af Amer) 95.9 BUN/Creatinine Ratio 12.1 Glucose 90 Calcium 8.8 Magnesium Total Bilirubin AST ALT Alkaline Phosphatase Troponin I Total Protein Albumin Globulin Albumin/Globulin Ratio TSH Phenytoin
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
[2019-06-22] MEDS: cefTRIAXone SODIUM 2,000 MG in DEXTROSE 5% 50 ML IV SCH (19:45)
[2019-06-22] MEDS: MIRTAZAPINE TAB 15 MG TAB PO SCH (20:15)
[2019-06-22] MEDS: TRAZODONE HCL 50 MG TAB PO SCH (20:16)
[2019-06-22] MEDS ORDERED: TRAZODONE HCL 50 MG TAB PO SCH (21:00)
[2019-06-23] MEDS: ATORVASTATIN 40 MG TAB PO SCH (08:09)
[2019-06-23] MEDS: CEROVITE ADV FORMULA TAB PO SCH (08:09)
[2019-06-23] MEDS: PHENYTOIN SODIUM ER 100 MG CAP PO SCH ×3 (08:09→20:51)
[2019-06-23] MEDS: ENOXAPARIN INJ 40 MG/0.4 ML SYR SQ SCH (08:43)
--- NOTE | 2019-06-23 10:48 | Fluoroscopy Report ---
FLUOROSCOPICALLY GUIDED LUMBAR PUNCTURE CLINICAL HISTORY: lyme positive with behavior issues r/o CSF involvement FLUOROSCOPY TIME: 0.2 images. Single fluoroscopic spot image. PROCEDURE: The procedure, risks and benefits were discussed with the patient including the risk of s lacy headache, bleeding and infection. The patient agreed to the procedure and informed written cons ent was obtained. The procedure was performed by Dr. Castaneda following a timeout. The left L5-S1 in terlaminar space was targeted. Skin overlying the space was prepped and draped in the usual sterile f ashion and local anesthesia was achieved with 1% lidocaine. Under intermittent fluoroscopic guidance, a 20-gauge x 3 1/2 in. Sprotte needle was inserted into the thecal sac. A total of 10 cc of clear, c olorless cerebral spinal fluid was obtained and spread amongst 4 vials. The patient tolerated the pro cedure well. There were no immediate complications. The specimens were sent to the laboratory at the request of the referring physician. IMPRESSION: Successful fluoroscopic guided lumbar puncture with removal of 10 cc of clear, colorless cerebral spinal fluid. No immediate complications. Electronically signed by: Antione Castaneda M.D. 06/23/2019 10:46 AM
[2019-06-23 11:04] LABS: Appearance CSF Clear; CSF Count Tube # 3; Color CSF Colorless
[2019-06-23 11:05] LABS: CSF Xanthrochromic No xanthochromia; Red Blood Cell CSF (A) 0 /uL (0-); Red Blood Cell CSF (B) 0 /uL (0-); White Blood Cell CSF (A) 0 /uL (0-5); White Blood Cell CSF (B) 1 /uL (0-5)
--- NOTE | 2019-06-23 14:54 | Neurology Progress Note ---
Date of Service June 23, 2019 Assessment & Plan (1) Behavioral change: 1. continue trazodone and Remeron per psychiatry recommendations 2. psychiatry to follow 3. continue Dilantin 100 mg TID for now 4. Dilantin level- 87 06/23/2019- order new level prior to discharge if continues on IV antibiotics (2) Lyme disease: 1. continue ceftriaxone 2 g every 24 hours 2. ID for further recommendations 3. LP ordered 4. labs ordered for evaluation of CSF 5. radiology for consent of procedure Will sign off for now- will follow up in our office as scheduled Supervising Physician Co-Signing Physician Notes Patient was seen and examined. Patient admitted for positive serum Lyme test. Denies complaint at this time. Denies known tick bite or rash. 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 ID following. Started on Ceftriaxone. LP performed and reviewed. CSF protein mildly elevated. NO WBC. Lp not suggestive of an encephalitis or meningitis. CSF lyme pending. On examine he is awake and alert. He is following commands. Comprehension is intact. No facial droop. EOMI. Pupils equal and reactive. Will defer to ID for antimicrobial recommendation / duration. Please call with any further questions or concerns. Sondra Sorenson is a 68 year old male who has a PMH- epilepsy, HLD, chronic anemia (baseline hemoglobin 12-13), past tobacco abuse. He was hospitalized from 06/09- for behavioral change attributed to possible underlying neurocognitive disorder. Remeron recommended by psychiatry for anxiety. He was instructed not to drive until cleared by neurologist. He was seen by neurology and PCP as an outpatient and was uncooperative during visits. His Lyme Igg was positive during the admission but the Igm was sent out for further testing. 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 He has been somewhat agitated at home as noted by significant other. Positive Lyme IgM Western blot (send out test) resulted 06/21/2019. They were called and asked to come to the hospital. Currently he is receiving IV antibotics recommended by Dr Ball infectious disease. Today he had the LP and is currently lying flat almost to the 2 hour davide. He has been drinking alot of water and he seems more relaxed today and his girlfriend agrees. denies CP, SOB, abdominal pain, one sided weakness, numbness tingling, N, V, neck pain or stiffness, headache Physical Exam Physical Exam: Gen: alert pleasant lungs course breath sounds CV RRR lying flat Results & Data Vital Signs (Past 12 Hours) Vital Signs Temp Pulse Resp BP BP Pulse Ox 06/23/19 11:00 36.7 C 86 18 127/77 94 06/23/19 07:11 36.7 C 89 16 153/82 H 94 Laboratory Results Abnormal lab results 06/23/19 Range/Units 10:35 CSF Total Protein 55.0 H (15-45) mg/dl Diagnostic Findings no new imaging
--- NOTE | 2019-06-23 18:22 | Hospitalist Progress Note ---
Date of Service June 23, 2019 Assessment & Plan (1) Behavioral change: With abnormal Lyme test Possible PAINTER DRUM Lyme -- Ceftriaxone 2 g IV Day 2 --Psychiatry service consulted medication recommendations Neurologist also consulted -- now on Remeron, Trazodone, PRN Vistaril gradually improving continue to monitor epilepsy, controlled on Dilantin Driving privileges currently suspended as per Neuro recommendations. hyperlipidemia on statin Rx chronic anemia, hemoglobin at baseline past tobacco abuse DVT prophylaxis. Lovenox subcu Full code Disposition-pending Subjective ff up for altered MS, possible Lyme Encephalopathy seen resting in bed, comfortable at bedside states he feels better today, less anxious, able to think more clearly patient is oriented x 3, thoughts logical, organized states left foot pain is also better denies other symptoms agrees that patient is calmer today mental status 70% better according to her no other symptoms Review of Systems Review of Systems: All systems reviewed & are unremarkable except as noted in HPI & below Physical Exam Physical Exam: General- oriented x 3, not in distress, speaks in sentences with no effort or accessory muscle use Eyes- anicteric Neck- no JVD Lungs- clear breath sounds bilaterally, no rales/wheezes Heart- normal rate, regular rhythm; no murmurs Abdomen- normal bowel sounds, nondistended, soft, nontender Extremities- no pretibial edema, no calf tenderness left ankle- less edema, no tenderness/warmth/erythema Neuro- alert, oriented x 3; no gross focal neurologic deficits Skin- warm & dry Results & Data Vital Signs (Past 12 Hours) Vital Signs Temp Pulse Resp BP BP Pulse Ox 06/23/19 15:28 36.4 C L 83 18 116/79 94 06/23/19 11:00 36.7 C 86 18 127/77 94 06/23/19 07:11 36.7 C 89 16 153/82 H 94 Laboratory Results Laboratory Results - last 24 hr 06/23/19 06/23/19 06/23/19 10:35 10:35 10:35 Glucose Fld Lyme DNA (PCR) Pending CSF Appearance CSF Color Xanthrochromic CSF WBC CSF RBC CSF Cell Count Tube # CSF Mononuclear WBCs % CSF Chemistry Tube # 1 Cancelled CSF Glucose 47 Cancelled CSF Lactate CSF Total Protein 55.0 H CSF VDRL Pending CSF Lyme IgG (Immblot) Pending CSF Lyme IgG Bands Det Pending CSF Lyme IgM (Immblot) Pending CSF Lyme IgM Bands Det Pending Phenytoin Lyme Specimen Source Pending 06/23/19 06/23/19 06/23/19 10:35 10:35 10:35 Glucose Fld Lyme DNA (PCR) Cancelled CSF Appearance Clear CSF Color Colorless Xanthrochromic No xanthochromia CSF WBC 0 CSF RBC 0 CSF Cell Count Tube # 3 CSF Mononuclear WBCs % CSF Chemistry Tube # CSF Glucose CSF Lactate 1.5 CSF Total Protein CSF VDRL CSF Lyme IgG (Immblot) CSF Lyme IgG Bands Det CSF Lyme IgM (Immblot) CSF Lyme IgM Bands Det Phenytoin Lyme Specimen Source Cancelled 06/23/19 06/23/19 06/23/19 10:35 11:56 11:56 Glucose 87 Fld Lyme DNA (PCR) CSF Appearance CSF Color Xanthrochromic CSF WBC CSF RBC CSF Cell Count Tube # CSF Mononuclear WBCs % CSF Chemistry Tube # CSF Glucose CSF Lactate CSF Total Protein CSF VDRL Cancelled CSF Lyme IgG (Immblot) CSF Lyme IgG Bands Det CSF Lyme IgM (Immblot) CSF Lyme IgM Bands Det Phenytoin 11.0 Lyme Specimen Source
[2019-06-23] MEDS: cefTRIAXone SODIUM 2,000 MG in DEXTROSE 5% 50 ML IV SCH (20:51)
[2019-06-23] MEDS: TRAZODONE HCL 50 MG TAB PO SCH (20:52)
[2019-06-23] MEDS: MIRTAZAPINE TAB 15 MG TAB PO SCH (20:52)
[2019-06-24] MEDS: PHENYTOIN SODIUM ER 100 MG CAP PO SCH ×3 (07:48→20:25)
[2019-06-24] MEDS: ATORVASTATIN 40 MG TAB PO SCH (07:48)
[2019-06-24] MEDS: ENOXAPARIN INJ 40 MG/0.4 ML SYR SQ SCH (07:49)
[2019-06-24] MEDS: CEROVITE ADV FORMULA TAB PO SCH (07:49)
--- NOTE | 2019-06-24 18:20 | Hospitalist Progress Note ---
Date of Service June 24, 2019 Assessment & Plan (1) Behavioral change: With abnormal Lyme test Possible FISH AND GAME WARDEN Lyme -- Ceftriaxone 2 g IV Day 3 --Psychiatry service consulted medication recommendations Neurologist also consulted -- now on Remeron, Trazodone, PRN Vistaril seems to be improving daily afebrile continue to monitor epilepsy, controlled on Dilantin Driving privileges currently suspended as per Neuro recommendations. hyperlipidemia on statin Rx chronic anemia, hemoglobin at baseline past tobacco abuse DVT prophylaxis. Lovenox subcu Full code Disposition-pending Subjective ff up for possible FISH AND GAME WARDEN lyme disease seen resting in bed, comfortable, not in distress states he was anxious last night, was not able to sleep well due to an incident he is not comfortable discussing with me he said for me to ask the staff counselor was still anxious in the morning, but better now denies confusion, headache, dizziness, nausea/vomiting left ankle pain continues to feel better no other symptoms Review of Systems Review of Systems: All systems reviewed & are unremarkable except as noted in HPI & below Physical Exam Physical Exam: General- oriented x 3, not in distress, speaks in sentences with no effort or accessory muscle use Eyes- anicteric Neck- no JVD Lungs- clear breath sounds bilaterally Heart- normal rate, regular rhythm; no murmurs Abdomen- normal bowel sounds, nondistended, soft, nontender Extremities- no pretibial edema, no calf tenderness Neuro- alert, oriented x 3; no gross focal neurologic deficits Skin- warm & dry Psych- calm, not anxious/depressed Results & Data Vital Signs (Past 12 Hours) Vital Signs Temp Pulse Resp BP Pulse Ox 06/24/19 15:17 36.4 C L 98 H 19 136/86 96 06/24/19 08:02 37.0 C 93 H 20 136/86 93
[2019-06-24] MEDS: cefTRIAXone SODIUM 2,000 MG in DEXTROSE 5% 50 ML IV SCH (20:25)
[2019-06-24] MEDS: MIRTAZAPINE TAB 15 MG TAB PO SCH (20:25)
[2019-06-24] MEDS: TRAZODONE HCL 50 MG TAB PO SCH (20:25)
[2019-06-25 06:19] LABS: Creatinine Clr Calc Pharmacy 91.4 ml/min; Est GFR (African American) 108.7; Est GFR (Non-African American) 93.7
[2019-06-25] MEDS: PHENYTOIN SODIUM ER 100 MG CAP PO SCH ×3 (07:58→20:28)
[2019-06-25] MEDS: ENOXAPARIN INJ 40 MG/0.4 ML SYR SQ SCH (07:59)
[2019-06-25] MEDS: ATORVASTATIN 40 MG TAB PO SCH (07:59)
[2019-06-25] MEDS: CEROVITE ADV FORMULA TAB PO SCH (07:59)
--- NOTE | 2019-06-25 19:36 | Hospitalist Progress Note ---
Date of Service June 25, 2019 Assessment & Plan (1) Behavioral change: With abnormal Lyme test Possible MIME ARTIST Lyme -- Ceftriaxone 2 g IV Day 4 --Psychiatry service consulted for medication recommendations Neurologist also consulted -- now on Remeron, Trazodone, PRN Vistaril Continues to improve Remains afebrile continue to monitor Epilepsy, controlled on Dilantin Driving privileges currently suspended as per Neuro recommendations. hyperlipidemia on statin Rx chronic anemia, hemoglobin at baseline past tobacco abuse DVT prophylaxis. Lovenox subcu Full code Disposition-pending Subjective Follow-up for altered mental status, possible MIME ARTIST Lyme disease Seen resting in bed, comfortable, in good spirits, pleasant Oriented X3, answers all questions appropriately States he is fine overall Feels he improved compared to previous days Denies confusion, headache, dizziness, abdominal pain rePorts left ankle pain continues to improve Denies any symptoms Review of Systems Review of Systems: All systems reviewed & are unremarkable except as noted in HPI & below Physical Exam Physical Exam: General- oriented x 3, not in distress, speaks in sentences with no effort or accessory muscle use Eyes- anicteric Neck- no JVD Lungs- clear BS, no crackles, no wheezing bilaterally Heart- normal rate, regular rhythm; no murmurs Abdomen- normal bowel sounds, nondistended, soft, nontender Extremities- no pretibial edema, no calf tenderness Neuro- alert, oriented x 3; no gross focal neurologic deficits Skin- warm & dry Results & Data Vital Signs (Past 12 Hours) Vital Signs Temp Pulse Resp BP BP Pulse Ox 06/25/19 15:55 36.4 C L 89 18 136/85 95 06/25/19 07:46 36.6 C 84 20 134/81 96 Laboratory Results Laboratory Results - last 24 hr 06/25/19 05:15 Creatinine 0.76 Est Cr Clr Drug Dosing 91.4 Est GFR ( Amer) 108.7 Est GFR (Non-Af Amer) 93.7
[2019-06-25] MEDS: MIRTAZAPINE TAB 15 MG TAB PO SCH (20:28)
[2019-06-25] MEDS: cefTRIAXone SODIUM 2,000 MG in DEXTROSE 5% 50 ML IV SCH (20:28)
[2019-06-25] MEDS: TRAZODONE HCL 50 MG TAB PO SCH (20:28)
[2019-06-26] MEDS: PHENYTOIN SODIUM ER 100 MG CAP PO SCH ×3 (08:11→20:40)
[2019-06-26] MEDS: ENOXAPARIN INJ 40 MG/0.4 ML SYR SQ SCH (08:12)
[2019-06-26] MEDS: CEROVITE ADV FORMULA TAB PO SCH (08:12)
[2019-06-26] MEDS: ATORVASTATIN 40 MG TAB PO SCH (08:12)
[2019-06-26] MEDS ORDERED: QUETIAPINE FUMARATE 25 MG TABLET PO PRN (15:16)
--- NOTE | 2019-06-26 17:08 | Hospitalist Progress Note ---
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 hyperlipidemia - on statin Rx chronic anemia - hemoglobin at baseline past tobacco abuse DVT prophylaxis. Lovenox subcu Full code Disposition-pending plan of care discussed with patient, sister and significant other extensively all questions answered they are all understanding, comfortable, agreeable with the plan of care Subjective ff up for altered mental status, Lyme disease seen resting in bed, comfortable, calm,oriented per family, patient was very agitated today, improved after seroquel was given no headache, chills, dyspnea denies symptoms Review of Systems Review of Systems: All systems reviewed & are unremarkable except as noted in HPI & below Physical Exam Physical Exam: General- oriented x 3, not in distress, speaks in sentences with no effort or accessory muscle use Eyes- anicteric Neck- no JVD Lungs- clear breath sounds bilaterally Heart- normal rate, regular rhythm; no murmurs Abdomen- normal bowel sounds, nondistended, soft, nontender Extremities- no pretibial edema, no calf tenderness Neuro- alert, oriented x 3; no gross focal neurologic deficits Skin- warm & dry Psych- calm, cooperative Results & Data Vital Signs (Past 12 Hours) Vital Signs Temp Pulse Resp BP BP Pulse Ox 06/26/19 15:30 36.3 C L 82 18 133/80 97 06/26/19 07:18 36.4 C L 94 H 16 130/83 95
[2019-06-26] MEDS: cefTRIAXone SODIUM 2,000 MG in DEXTROSE 5% 50 ML IV SCH (20:39)
[2019-06-26] MEDS: TRAZODONE HCL 50 MG TAB PO SCH (20:40)
[2019-06-26] MEDS: MIRTAZAPINE TAB 15 MG TAB PO SCH (20:40)
--- NOTE | 2019-06-26 22:06 | Infectious Disease Progress Nt ---
Date of Service June 26, 2019 Assessment & Plan (1) Lyme disease: 68-year-old male with possible BEATER ROOM HELPER Lyme disease, to be continued on IV ceftriaxone pending specific Lyme results from CSF. Will follow. Subjective Patient seen in follow-up for possible BEATER ROOM HELPER Lyme disease. Lumbar puncture with only 3 cells, mildly elevated protein. Studies for Lyme disease pending. Patient calmer today, offering no new specific complaints. Remains afebrile. Review of Systems Review of Systems: All systems reviewed & are unremarkable except as noted in HPI & below Physical Exam Constitutional: WD/WN, vitals as above comfortable; no acute distress Eyes: PERRL, conjunctivae normal, anicteric sclerae ENMT: external ear and nose normal, oropharynx normal Neck: trachea midline, no thyromegaly neck nontender Respiratory: normal respiratory effort, lungs clear to auscultation normal percussion; does not use accessory muscles Cardiovascular: Rate/Rhythm: regular rate and regular rhythm Heart Sounds: normal S1 and normal S2; no gallop, no murmur and no cardiac rub Vessels: normal peripheral pulses; no JVD Gastrointestinal (Abdomen): normal bowel sounds, soft, nontender, no hepato splenomegaly Musculoskeletal: no cyanosis or clubbing, extremities motor strength 5/5 Spine: thoracic spine normal to inspection and lumbar spine normal to inspection; no cervical spinal tenderness Skin: no rashes, warm and dry normal turgor; no lesions Neurologic: patellar DTR's 2+ bilat, sensation intact no focal motor deficits Speech / Cognition: + abnormal cognition Psychiatric: Orientation: alert, oriented x 3 and cooperative Lymphatic: no cervical or axillary lymphadenopathy no inguinal lymphadenopathy Results & Data Vital Signs (Past 12 Hours) Vital Signs Temp Pulse Resp BP Pulse Ox 06/26/19 15:30 36.3 C L 82 18 133/80 97 Laboratory Results Laboratory Results - last 48 hr 06/25/19 05:15 Creatinine 0.76 Est Cr Clr Drug Dosing 91.4 Est GFR ( Amer) 108.7 Est GFR (Non-Af Amer) 93.7 Diagnostic Findings Microbiology 06/23/19 10:35 Cerebral Spinal Fluid Gram Stain - Final 06/23/19 10:35 Cerebral Spinal Fluid CSF Culture - Final No growth 06/23/19 10:35 Cerebral Spinal Fluid Fungal Culture - Preliminary No yeast or fungus isolated - Report 1, Additional Report to Follow. 06/23/19 10:35 Cerebral Spinal Fluid Acid Fast Bacilli Smear - Final 06/23/19 10:35 Cerebral Spinal Fluid Cryptococcal Antigen Test - Final PG Care Time/CCT Total # of Minutes Spent Total Time Spent with Patient: Total time spent is greater than 50% in coordination of care (as documented) at patient's floor/unit and/or counseling patient:
[2019-06-27] MEDS: ATORVASTATIN 40 MG TAB PO SCH (08:12)
[2019-06-27] MEDS: CEROVITE ADV FORMULA TAB PO SCH (08:12)
[2019-06-27] MEDS: PHENYTOIN SODIUM ER 100 MG CAP PO SCH ×3 (08:12→19:54)
[2019-06-27] MEDS: ENOXAPARIN INJ 40 MG/0.4 ML SYR SQ SCH (08:13)
--- NOTE | 2019-06-27 09:26 | Hospitalist Progress Note ---
Date of Service delayed entry date of service noted below June 27, 2019 Assessment & Plan (1) Behavioral change: With abnormal Lyme test Possible HANDBAG FRAMER Lyme -- Ceftriaxone 2 g IV Day 6 --Psychiatry service consulted for medication recommendations: recommended Remeron, Trazodone, PRN Vistaril Neurologist also consulted doing fine with Vistaril in AM over the weekedn but (+) increased agitation 06/26/19 Psych Service ordered Seroquel PRN (as per Psych, may lower Dilantin level but still ok to give, needs to inform Neurology service) messaged Dr. Zabala to request for re-evaluation of patient and further medication recommendations, as well as assistance with establishing with a Psychiatrist as outpatient patient already oriented x 3, but still has episodes of anxiety/restlessness continue to monitor, titrate medications per Psych anxiety, agitation needs to be consistently stable prior to discharge Epilepsy, controlled on Dilantin Driving privileges currently suspended as per Neuro recommendations. will need to ff up with Neurology re: driving privileges hyperlipidemia - on statin Rx chronic anemia - hemoglobin at baseline past tobacco abuse DVT prophylaxis. Lovenox subcu Full code Disposition-pending Subjective ff up for possible HANDBAG FRAMER lyme seen resting in bed, comfortable just had breakfast states he was not able to sleep overnight- watched football until 330am, and was not able to sleep since then denies feeling anxious during my exam denies left foot pain no other symptoms Review of Systems Review of Systems: All systems reviewed & are unremarkable except as noted in HPI & below Physical Exam Physical Exam: General- oriented x 3, not in distress, speaks in sentences with no effort or accessory muscle use Eyes- anicteric Neck- no JVD Lungs- clear breath sounds bilaterally Heart- normal rate, regular rhythm; no murmurs Abdomen- normal bowel sounds, nondistended, soft, nontender Extremities- no pretibial edema, no calf tenderness left foot: no edema/warmth/tenderness Neuro- alert, oriented x 3; no gross focal neurologic deficits Skin- warm & dry Psych- calm, cooperative,slightly anxious Results & Data Vital Signs (Past 12 Hours) Vital Signs Temp Pulse Resp BP BP Pulse Ox 06/27/19 07:27 36.8 C 98 H 18 155/54 H 96 06/26/19 23:54 36.6 C 79 18 124/74 97
[2019-06-27] MEDS ORDERED: QUETIAPINE FUMARATE 25 MG TABLET PO STA (09:55)
[2019-06-27] MEDS: ACETAMINOPHEN 325 MG TAB PO PRN (14:00)
[2019-06-27] MEDS: cefTRIAXone SODIUM 2,000 MG in DEXTROSE 5% 50 ML IV SCH (19:53)
[2019-06-27] MEDS: MIRTAZAPINE TAB 15 MG TAB PO SCH (19:54)
[2019-06-27] MEDS: TRAZODONE HCL 50 MG TAB PO SCH (19:54)
[2019-06-28 06:43] LABS: Creatinine Clr Calc Pharmacy 90.2 ml/min; Est GFR (African American) 108.1; Est GFR (Non-African American) 93.2
[2019-06-28] MEDS ORDERED: QUETIAPINE FUMARATE 25 MG TABLET PO PRN (07:34)
[2019-06-28] MEDS: CEROVITE ADV FORMULA TAB PO SCH (08:06)
[2019-06-28] MEDS: ATORVASTATIN 40 MG TAB PO SCH (08:06)
[2019-06-28] MEDS: ENOXAPARIN INJ 40 MG/0.4 ML SYR SQ SCH (08:07)
[2019-06-28] MEDS: PHENYTOIN SODIUM ER 100 MG CAP PO SCH ×3 (08:07→20:03)
[2019-06-28] MEDS: QUETIAPINE FUMARATE 25 MG TABLET PO PRN ×2 (13:41→22:51)
--- NOTE | 2019-06-28 15:20 | Hospitalist Progress Note ---
Date of Service June 28, 2019 Assessment & Plan (1) Behavioral change: With abnormal Lyme test Possible COMPUTER TYPESETTER KEYLINER Lyme -- Ceftriaxone 2 g IV Day 7 --Psychiatry service consulted for medication recommendations: Vistaril he discontinued, as it may precipitate the patient's confusion Increased dose of Seroquel Increased dose of trazodone to 50 mg at bedtime, may increase to dose 100 mg at bedtime -as per our report of patient was not sleep at night, which may contribute to daytime agitation/confusion/psychosis Neurology consulted, appreciate input Patient is showing behavior suggestive of progression of dementia with psychosis Per patient's significant other: Patient has been having gradual cognitive decline with behavioral disturbance for last 8 to 9 months(after foot fracture on November 2018) Seizure disorder: Continue Dilantin, notes breakthrough seizure episode AVOID HALDOL, IT MAY REDUCE THRESHOLD FOR SEIZURE/PRECIPITATE BREAKTHROUGH SEIZURE Driving privileges currently suspended as per Neuro recommendations. will need to ff up with Neurology re: driving privileges hyperlipidemia - on statin Rx chronic anemia - hemoglobin at baseline past tobacco abuse DVT prophylaxis. 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 Review of Systems Review of Systems: All systems reviewed & are unremarkable except as noted in HPI & below Physical Exam Constitutional: WD/WN, vitals as above no acute distress Eyes: PERRL, conjunctivae normal, anicteric sclerae ENMT: external ear and nose normal, oropharynx normal Neck: trachea midline, no thyromegaly Respiratory: normal respiratory effort, lungs clear to auscultation Cardiovascular: RRR, no murmur, no edema Gastrointestinal (Abdomen): normal bowel sounds, soft, nontender, no hepatosplenomegaly Musculoskeletal: no cyanosis or clubbing, extremities motor strength 5/5 Skin: no rashes, warm and dry Neurologic: PERRL, EOMI, accommodation nl, no face palsy, no dysarthria Psychiatric: Orientation: alert Mood: + anxious mood Insight: + poor insight (Psychosis, with delirious thought) Judgement: + poor judgement Results & Data Vital Signs (Past 12 Hours) Vital Signs Temp Pulse Resp BP Pulse Ox 06/28/19 07:13 36.7 C 81 18 117/71 98
[2019-06-28] MEDS ORDERED: QUETIAPINE FUMARATE 25 MG TABLET PO ONE (15:34)
[2019-06-28] MEDS: cefTRIAXone SODIUM 2,000 MG in DEXTROSE 5% 50 ML IV SCH (20:01)
[2019-06-28] MEDS ORDERED: TRAZODONE HCL 50 MG TAB PO SCH (21:00)
[2019-06-28] MEDS ORDERED: QUETIAPINE FUMARATE 25 MG TABLET PO SCH (21:00)
[2019-06-29 07:32] LABS: Lyme DNA PCR CSF or Synovial Not detected (Not Detected); Lyme DNA Source CSF; Lyme IgG CSF NO BANDS DETECTED; Lyme IgM CSF NO BANDS DETECTED; VDRL Qualitative CSF Nonreactive (Nonreactive)
[2019-06-29] MEDS: PHENYTOIN SODIUM ER 100 MG CAP PO SCH ×3 (07:57→21:22)
[2019-06-29] MEDS: ENOXAPARIN INJ 40 MG/0.4 ML SYR SQ SCH (07:57)
[2019-06-29] MEDS: QUETIAPINE FUMARATE 25 MG TABLET PO PRN ×2 (07:57→13:28)
[2019-06-29] MEDS: ATORVASTATIN 40 MG TAB PO SCH (07:57)
[2019-06-29] MEDS: CEROVITE ADV FORMULA TAB PO SCH (07:57)
[2019-06-29 11:30] LABS: BUN Creatinine Ratio 9.1 (10-20); Calcium 8.9 mg/dl (8.5-10.1); Creatinine Clr Calc Pharmacy 89.1 ml/min; Est GFR (African American) 107.5; Est GFR (Non-African American) 92.8
--- NOTE | 2019-06-29 13:41 | Hospitalist Progress Note ---
Date of Service June 29, 2019 Assessment & Plan (1) Behavioral change: possible due to progression of dementia with Psychosis family /significant other noted change is personality /memory loss /lack of orientation for past 8 months ( after pt had injury /fall ) has been agitated at home accusing /combative lumber puncture was ordered for presentation with confusion /positive Lyme serology on 06/09/2019: Western blot was reactive CSF study showed: No elevation of cell count, minimally elevated CSF protein 55(1545mg/dl) Patient was empirically started with IV Rocephin 2 g daily for possible Lyme meningitis Infectious disease consulted, appreciate input CSF Lyme serology/immune blot: Shows on detectable Lyme IgG/IgM PATIENT DOES NOT HAVE PIPELINE SYSTEMS OPERATOR LYME/LYME MENINGITIS IV Rocephin discontinued Appreciate input from Dr. Ball Patient does not need any continuation of IV ceftriaxone, Treatment with p.o. doxycycline 100 mg twice daily for 4 weeks, given recent positive Lyme serology Psychosis/delirium --Psychiatry service consulted for medication recommendations: Vistaril he discontinued, as it may precipitate the patient's confusion Started on the Seroquel, improvement of symptoms noted intermittently Increase Seroquel: Ordered for scheduled dose of 50 mg in a.m./25 mg at noon/75 mg at bedtime Continue to monitor, With persistence of behavioral disturbance/psychosis further titration of Seroquel can be done as needed Increased dose of trazodone 100 mg at bedtime,-she has not been sleeping at night, which may be precipitating worsening of psychosis in a.m. Patient is showing behavior suggestive of progression of dementia with psychosis Per patient's significant other: Patient has been having gradual cognitive decline with behavioral disturbance for last 8 to 9 months(after foot fracture on November 2018) Seizure disorder: Continue Dilantin, notes breakthrough seizure episode Neurology consulted, appreciate input AVOID HALDOL, IT MAY REDUCE THRESHOLD FOR SEIZURE/PRECIPITATE BREAKTHROUGH SEIZURE Driving privileges currently suspended as per Neuro recommendations. Outpatient follow-up with neurology hyperlipidemia - on statin Rx chronic anemia - hemoglobin at baseline past tobacco abuse DVT prophylaxis. Lovenox subcu Full code Disposition-pending Unsafe to return back home, for significant behavioral issues, May benefit with locked dementia unit We will continue to adjust antipsychotic meds for improvement of behavioral disturbance, psychosis Subjective More calm and cooperative this morning Has been staying mostly, has not been wandering the hallway Getting Seroquel scheduled dose, as an PRN Noted to have increased effect of Seroquel with as needed dose Physical Exam Constitutional: WD/WN, vitals as above no acute distress Eyes: PERRL, conjunctivae normal, anicteric sclerae ENMT: external ear and nose normal, oropharynx normal Neck: trachea midline, no thyromegaly Respiratory: normal respiratory effort, lungs clear to auscultation Cardiovascular: RRR, no murmur, no edema Gastrointestinal (Abdomen): normal bowel sounds, soft, nontender, no hepatosplenomegaly Musculoskeletal: no cyanosis or clubbing, extremities motor strength 5/5 Skin: no rashes, warm and dry Neurologic: PERRL, EOMI, accommodation nl, no face palsy, no dysarthria Psychiatric: Orientation: alert Mood: + anxious mood Insight: + poor insight (Psychosis, with delirious thought) Judgement: + poor judgement Results & Data Vital Signs (Past 12 Hours) Vital Signs Temp Pulse Resp BP Pulse Ox 06/29/19 07:15 36.7 C 102 H 20 149/91 H 95
[2019-06-29] MEDS: DOXYCYCLINE HYCLATE 100 MG CAP PO SCH ×2 (17:18→21:23)
[2019-06-29] MEDS ORDERED: DOXYCYCLINE HYCLATE 100 MG CAP PO SCH (21:00)
[2019-06-29] MEDS: TRAZODONE HCL 100 MG TAB PO SCH (21:22)
[2019-06-29] MEDS: QUETIAPINE FUMARATE 25 MG TABLET PO SCH (21:24)
[2019-06-30 06:36] LABS: BUN Creatinine Ratio 13.7 (10-20); Calcium 9.1 mg/dl (8.5-10.1); Creatinine Clr Calc Pharmacy 82.7 ml/min; Est GFR (African American) 104.3; Potassium 3.8 mmol/L (3.5-5.1)
[2019-06-30] MEDS: CEROVITE ADV FORMULA TAB PO SCH (07:40)
[2019-06-30] MEDS: PHENYTOIN SODIUM ER 100 MG CAP PO SCH ×3 (07:40→21:39)
[2019-06-30] MEDS: QUETIAPINE FUMARATE 25 MG TABLET PO SCH ×2 (07:41→21:40)
[2019-06-30] MEDS: ENOXAPARIN INJ 40 MG/0.4 ML SYR SQ SCH (07:41)
[2019-06-30] MEDS: ATORVASTATIN 40 MG TAB PO SCH (07:42)
[2019-06-30] MEDS: DOXYCYCLINE HYCLATE 100 MG CAP PO SCH ×2 (10:22→21:40)
[2019-06-30] MEDS ORDERED: QUETIAPINE FUMARATE 25 MG TABLET PO SCH (12:00)
[2019-06-30] MEDS ORDERED: QUETIAPINE FUMARATE 25 MG TABLET PO ONE (13:07)
--- NOTE | 2019-06-30 14:16 | XRay Report ---
XR foot LT min 3V routine CLINICAL HISTORY: Left foot pain status post trauma. History of ankle fracture. COMPARISON: Left ankle dated 06/13/2019 DISCUSSION: There are postsurgical changes involving the distal fibula. There is a tiny plantar calca loretta spur. No acute fractures or subluxations are visualized. IMPRESSION: No acute fractures or dislocations identified. Electronically signed by: Emmanuel Lozoya M.D. 06/30/2019 2:14 PM
--- NOTE | 2019-06-30 17:41 | Hospitalist Progress Note ---
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 Ball Patient does not need any continuation of IV ceftriaxone, Treatment with p.o. doxycycline 100 mg twice daily for 4 weeks, given recent positive Lyme serology Psychosis/delirium --Psychiatry service consulted for medication recommendations: Vistaril he discontinued, as it may precipitate the patient's confusion Started on the Seroquel, improvement of symptoms noted intermittently Increase Seroquel: Ordered for scheduled dose of 50 mg in a.m./25 mg at noon/75 mg at bedtime Continue to monitor, With persistence of behavioral disturbance/psychosis further titration of Seroquel can be done as needed Increased dose of trazodone 100 mg at bedtime,-she has not been sleeping at night, which may be precipitating worsening of psychosis in a.m. Patient is showing behavior suggestive of progression of dementia with psychosis Per patient's significant other: Patient has been having gradual cognitive decline with behavioral disturbance for last 8 to 9 months(after foot fracture on November 2018) Seizure disorder: Continue Dilantin, notes breakthrough seizure episode Neurology consulted, appreciate input AVOID HALDOL, IT MAY REDUCE THRESHOLD FOR SEIZURE/PRECIPITATE BREAKTHROUGH SEIZURE Driving privileges currently suspended as per Neuro recommendations. Outpatient follow-up with neurology hyperlipidemia - on statin Rx Left Foot Fracture: Patient slipped on ice on November 2018, has been on left cam boot since, [facility] Fell in bathroom this morning, Worsening of pain or discomfort in left foot Able to bear weight X-ray of left foot shows no acute fracture dislocation identified Hyponatremia Secondary to psychogenic polydipsia-patient drank almost 3-4 L of fluids yesterday, leading to sodium dropped down to 129 Ordered for fluid restriction 1.5 later today Sodium level gradually improving 130 Continue fluid restriction BMP in a.m. DVT prophylaxis. Lovenox subcu Full code Disposition-pending Unsafe to return back home, for significant behavioral issues, May benefit with locked dementia unit We will continue to adjust antipsychotic meds for improvement of behavioral disturbance, psychosis Subjective Sustained a fall earlier this morning, as per patient he walked to the bathroom without his cam boot on left foot, slipped on his socks, fell on floor did not hit his head Does not believe he had worsening pain on his foot, But wants to have the evaluation done by [facility], Remains confused, less agitated than prior Has been able to stay in his room Physical Exam Constitutional: WD/WN, vitals as above no acute distress Eyes: PERRL, conjunctivae normal, anicteric sclerae ENMT: external ear and nose normal, oropharynx normal Neck: trachea midline, no thyromegaly Respiratory: normal respiratory effort, lungs clear to auscultation Cardiovascular: RRR, no murmur, no edema Gastrointestinal (Abdomen): normal bowel sounds, soft, nontender, no hepatosplenomegaly Musculoskeletal: no cyanosis or clubbing, extremities motor strength 5/5 Skin: no rashes, warm and dry Neurologic: PERRL, EOMI, accommodation nl, no face palsy, no dysarthria Psychiatric: Orientation: alert Mood: + anxious mood Insight: + poor insight (Psychosis, with delirious thought) Judgement: + poor judgement Results & Data Vital Signs (Past 12 Hours) Vital Signs Temp Pulse Resp BP BP Pulse Ox 06/30/19 15:54 36.6 C 118 H 20 130/80 96 06/30/19 07:14 36.4 C L 88 18 132/74 96
[2019-06-30] MEDS: TRAZODONE HCL 100 MG TAB PO SCH (21:39)
[2019-07-01] MEDS: CEROVITE ADV FORMULA TAB PO SCH (06:49)
[2019-07-01 06:54] LABS: BUN Creatinine Ratio 22.1 (10-20); Creatinine Clr Calc Pharmacy 84.7 ml/min; Est GFR (African American) 105.3; Est GFR (Non-African American) 90.9; Potassium 3.7 mmol/L (3.5-5.1)
[2019-07-01] MEDS: ATORVASTATIN 40 MG TAB PO SCH (09:13)
[2019-07-01] MEDS: DOXYCYCLINE HYCLATE 100 MG CAP PO SCH ×2 (09:13→22:00)
[2019-07-01] MEDS: PHENYTOIN SODIUM ER 100 MG CAP PO SCH ×3 (09:13→21:58)
[2019-07-01] MEDS: ENOXAPARIN INJ 40 MG/0.4 ML SYR SQ SCH (09:14)
[2019-07-01] MEDS: ACETAMINOPHEN 325 MG TAB PO PRN (09:20)
[2019-07-01] MEDS: QUETIAPINE FUMARATE 25 MG TABLET PO SCH ×3 (11:08→21:59)
--- NOTE | 2019-07-01 15:55 | Hospitalist Progress Note ---
Date of Service July 01, 2019 Assessment & Plan (1) Behavioral change: Secondary to progression of dementia with psychosis improvement of behavioral disturbance noted after starting on antipsychotic medications: Seroquel Dose titrated up to: I 50 mg in the morning, 50 mg in noon, 75 mg at bedtime,-continue to monitor Added trazodone 100 mg at bedtime No evidence of infection, no [employer] Lyme disease or meningitis-no metabolic encephalopathy family /significant other noted change is personality /memory loss /lack of orientation for past 8 months ( after pt had injury /fall ) has been agitated at home 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 Ball Patient does not need any continuation of IV ceftriaxone, Treatment with p.o. doxycycline 100 mg twice daily for 4 weeks, given recent positive Lyme serology Psychosis/delirium --Psychiatry service consulted for medication recommendations: Vistaril he discontinued, as it may precipitate the patient's confusion Started on the Seroquel, improvement of symptoms noted intermittently Increase Seroquel: Ordered for scheduled dose of 50 mg in a.m./50 mg at noon/75 mg at bedtime Continue to monitor, With persistence of behavioral disturbance/psychosis further titration of Seroquel can be done as needed Increased dose of trazodone 100 mg at bedtime,-pt has not been sleeping at night, which may be precipitating worsening of psychosis in a.m. Patient is showing behavior suggestive of progression of dementia with psychosis Per patient's significant other: Patient has been having gradual cognitive decline with behavioral disturbance for last 8 to 9 months(after foot fracture on November 2018) Seizure disorder: Continue Dilantin, notes breakthrough seizure episode Neurology consulted, appreciate input AVOID HALDOL, IT MAY REDUCE THRESHOLD FOR SEIZURE/PRECIPITATE BREAKTHROUGH SEIZURE Driving privileges currently suspended as per Neuro recommendations. Outpatient follow-up with neurology hyperlipidemia - on statin Rx Left Foot Fracture: Patient slipped on ice on November 2018, has been on left cam boot since, conservative management as per [facility] Fell in bathroom this morning, Worsening of pain or discomfort in left foot Able to bear weight X-ray of left foot shows no acute fracture dislocation identified Hyponatremia Secondary to psychogenic polydipsia-patient drank almost 3-4 L of fluids yesterday, leading to sodium dropped down to 129 Ordered for fluid restriction 1.5 later today Sodium level gradually improving 130 Continue fluid restriction BMP in a.m. DVT prophylaxis. Lovenox subcu Full code Disposition- Patient does not have any physical limitation/requirement for skilled rehab Personal-care dementia unit placement will be [id number] Patient lives with his Significant Other/Girl Friend ( Qi ) for the last 22 years Plan of care discussed with Dotty over the phone Feels it will be ok for patient to return home after medications being adjusted to control his severe behavioral issues Patient's sister is also very involved in care Plan to discharge patient home with family support when medically stable Subjective Patient remains confused, More calm and cooperative today, able to follow simple instructions, Per nursing no aggressiveness, agitation or significant behavioral disturbance noted Patient has not been wandering around on the hallway Vitals remained stable Physical Exam Constitutional: WD/WN, vitals as above no acute distress Eyes: PERRL, conjunctivae normal, anicteric sclerae ENMT: external ear and nose normal, oropharynx normal Neck: trachea midline, no thyromegaly Respiratory: normal respiratory effort, lungs clear to auscultation Cardiovascular: RRR, no murmur, no edema Gastrointestinal (Abdomen): normal bowel sounds, soft, nontender, no hepatosplenomegaly Musculoskeletal: no cyanosis or clubbing, extremities motor strength 5/5 Skin: no rashes, warm and dry Neurologic: PERRL, EOMI, accommodation nl, no face palsy, no dysarthria Psychiatric: Orientation: alert Mood: + anxious mood Insight: + poor insight (Psychosis, with delirious thought) Judgement: + poor judgement Results & Data Vital Signs (Past 12 Hours) Vital Signs Temp Pulse Resp BP BP Pulse Ox 07/01/19 15:17 37.0 C 99 H 18 147/97 H 95 07/01/19 07:10 36.8 C 85 18 153/90 H 95
[2019-07-01] MEDS: QUETIAPINE FUMARATE 25 MG TABLET PO PRN (16:48)
[2019-07-01] MEDS: TRAZODONE HCL 100 MG TAB PO SCH (21:58)
[2019-07-02] MEDS: CEROVITE ADV FORMULA TAB PO SCH (06:07)
[2019-07-02 06:43] LABS: BUN Creatinine Ratio 19.9 (10-20); Creatinine Clr Calc Pharmacy 85.8 ml/min; Est GFR (African American) 105.8; Est GFR (Non-African American) 91.3; Potassium 3.9 mmol/L (3.5-5.1)
[2019-07-02] MEDS: DOXYCYCLINE HYCLATE 100 MG CAP PO SCH ×2 (08:32→20:45)
[2019-07-02] MEDS: PHENYTOIN SODIUM ER 100 MG CAP PO SCH ×3 (08:32→20:45)
[2019-07-02] MEDS: ATORVASTATIN 40 MG TAB PO SCH (08:33)
[2019-07-02] MEDS: QUETIAPINE FUMARATE 25 MG TABLET PO SCH ×3 (08:33→20:45)
[2019-07-02] MEDS: ENOXAPARIN INJ 40 MG/0.4 ML SYR SQ SCH (08:33)
[2019-07-02] MEDS: ACETAMINOPHEN 325 MG TAB PO PRN (12:45)
--- NOTE | 2019-07-02 16:19 | Hospitalist Progress Note ---
Date of Service July 02, 2019 Assessment & Plan (1) Behavioral change: Secondary to progression of dementia with psychosis improvement of behavioral disturbance noted after starting on antipsychotic medications: Seroquel Dose titrated up to: I 50 mg in the morning, 50 mg in noon, 75 mg at bedtime,-continue to monitor Trazodone dose increased to 200 mg at bedtime this patient continues to have very poor sleep, agitated combative in a.m. 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 Ball Patient does not need any continuation of IV ceftriaxone, Treatment with p.o. doxycycline 100 mg twice daily for 4 weeks, given recent positive Lyme serology Psychosis/delirium --Psychiatry service consulted for medication recommendations: Vistaril he discontinued, as it may precipitate the patient's confusion Started on the Seroquel, improvement of symptoms noted intermittently Increase Seroquel: Ordered for scheduled dose of 50 mg in a.m./50 mg at noon/75 mg at bedtime Continue to monitor, With persistence of behavioral disturbance/psychosis further titration of Seroquel can be done as needed Increased dose of trazodone 100 mg at bedtime,-pt has not been sleeping at night, which may be precipitating worsening of psychosis in a.m. Patient is showing behavior suggestive of progression of dementia with psychosis Per patient's significant other: Patient has been having gradual cognitive decline with behavioral disturbance for last 8 to 9 months(after foot fracture on November 2018) Seizure disorder: Continue Dilantin, notes breakthrough seizure episode Neurology consulted, appreciate input AVOID HALDOL, IT MAY REDUCE THRESHOLD FOR SEIZURE/PRECIPITATE BREAKTHROUGH SEIZURE Driving privileges currently suspended as per Neuro recommendations. Outpatient follow-up with neurology hyperlipidemia - on statin Rx Left Foot Fracture: Patient slipped on ice on November 2018, has been on left cam boot since, conservative management as per [facility] Fell in bathroom this morning, Worsening of pain or discomfort in left foot Able to bear weight X-ray of left foot shows no acute fracture dislocation identified Hyponatremia Secondary to psychogenic polydipsia-patient drank almost 3-4 L of fluids yesterday, leading to sodium dropped down to 129 Ordered for fluid restriction 1.5 later today Sodium level gradually improving 130 Continue fluid restriction BMP in a.m. DVT prophylaxis. Lovenox subcu Full code Disposition- Patient does not have any physical limitation/requirement for skilled rehab Personal-care dementia unit placement will be [id number] Patient lives with his Significant Other/Girl Friend ( Qi ) for the last 22 years Plan of care discussed with Dotty over the phone Feels it will be ok for patient to return home after medications being adjusted to control his severe behavioral issues Patient's sister is also very involved in care Plan to discharge patient home with family support when medically stable Subjective Patient remains very confused, still talking tangentially, Family members present at bedside, patient becomes agitated/combative easily Reports of a poor sleep last night, will increase trazodone to 200 mg at bedtime Physical Exam Constitutional: WD/WN, vitals as above no acute distress Eyes: PERRL, conjunctivae normal, anicteric sclerae ENMT: external ear and nose normal, oropharynx normal Neck: trachea midline, no thyromegaly Respiratory: normal respiratory effort, lungs clear to auscultation Cardiovascular: RRR, no murmur, no edema Gastrointestinal (Abdomen): normal bowel sounds, soft, nontender, no hepatosplenomegaly Musculoskeletal: no cyanosis or clubbing, extremities motor strength 5/5 Skin: no rashes, warm and dry Neurologic: PERRL, EOMI, accommodation nl, no face palsy, no dysarthria Psychiatric: Orientation: alert Mood: + anxious mood Insight: + poor insight (Psychosis, with delirious thought) Judgement: + poor judgement Results & Data Vital Signs (Past 12 Hours) Vital Signs Temp Pulse Resp BP Pulse Ox 07/02/19 15:00 36.7 C 99 H 18 112/68 97 07/02/19 07:13 36.4 C L 109 H 18 145/78 H 96
[2019-07-02] MEDS: TRAZODONE HCL 100 MG TAB PO SCH (20:45)
[2019-07-03] MEDS: CEROVITE ADV FORMULA TAB PO SCH (06:21)
[2019-07-03] MEDS: ATORVASTATIN 40 MG TAB PO SCH (08:17)
[2019-07-03] MEDS: ENOXAPARIN INJ 40 MG/0.4 ML SYR SQ SCH (08:17)
[2019-07-03] MEDS: PHENYTOIN SODIUM ER 100 MG CAP PO SCH ×3 (08:17→20:28)
[2019-07-03] MEDS: OLANZAPINE 2.5 MG TAB PO SCH (08:17)
[2019-07-03] MEDS: QUETIAPINE FUMARATE 25 MG TABLET PO SCH ×3 (08:17→20:28)
[2019-07-03] MEDS: DOXYCYCLINE HYCLATE 100 MG CAP PO SCH ×2 (08:17→20:28)
[2019-07-03] MEDS: ACETAMINOPHEN 325 MG TAB PO PRN (10:58)
--- NOTE | 2019-07-03 11:52 | Hospitalist Progress Note ---
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 Lyme disease or meningitis-no metabolic encephalopathy family /significant other noted change is personality /memory loss /lack of orientation for past 8 months ( after pt had injury /fall ) has been agitated at home 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 Ball Patient does not need any continuation of IV ceftriaxone, Treatment with p.o. doxycycline 100 mg twice daily for 4 weeks, given recent positive Lyme serology Psychosis/delirium --Psychiatry service consulted for medication recommendations: Vistaril he discontinued, as it may precipitate the patient's confusion Started on the Seroquel, improvement of symptoms noted intermittently Increase Seroquel: Ordered for scheduled dose of 50 mg in a.m./50 mg at noon/75 mg at bedtime Continue to monitor, With persistence of behavioral disturbance/psychosis further titration of Seroquel can be done as needed Increased dose of trazodone 200 mg at bedtime, Patient is showing behavior suggestive of progression of dementia with psychosis Per patient's significant other: Patient has been having gradual cognitive decline with behavioral disturbance for last 8 to 9 months(after foot fracture on November 2018) Seizure disorder: Continue Dilantin, notes breakthrough seizure episode Neurology consulted, appreciate input AVOID HALDOL, IT MAY REDUCE THRESHOLD FOR SEIZURE/PRECIPITATE BREAKTHROUGH SEIZURE Driving privileges currently suspended as per Neuro recommendations. 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 Lovenox subcu Full code Disposition- Patient does not have any physical limitation/requirement for skilled rehab Personal-care dementia unit placement will be [id number] Patient lives with his Significant Other/Girl Friend ( Qi ) for the last 22 years Plan of care discussed with Dotty over the phone Feels it will be ok for patient to return home after medications being adjusted to control his severe behavioral issues Patient's sister is also very involved in care Plan to discharge patient home with family support when medically stable Subjective pt slept well last night more co operating and calm today conversation is more goal directed no agitation or aggressive out burst noted no complain of left foot pain , no fever or chills Physical Exam Constitutional: WD/WN, vitals as above no acute distress Eyes: PERRL, conjunctivae normal, anicteric sclerae ENMT: external ear and nose normal, oropharynx normal Neck: trachea midline, no thyromegaly Respiratory: normal respiratory effort, lungs clear to auscultation Cardiovascular: RRR, no murmur, no edema Gastrointestinal (Abdomen): normal bowel sounds, soft, nontender, no hepatosplenomegaly Musculoskeletal: no cyanosis or clubbing, extremities motor strength 5/5 Skin: no rashes, warm and dry Neurologic: PERRL, EOMI, accommodation nl, no face palsy, no dysarthria Psychiatric: Orientation: alert, oriented to person and oriented to place Mood: + anxious mood Insight: + poor insight (Psychosis, with delirious thought) Results & Data Vital Signs (Past 12 Hours) Vital Signs Temp Pulse Resp BP Pulse Ox 07/03/19 07:33 36.4 C L 91 H 20 152/92 H 93
[2019-07-03] MEDS: TRAZODONE HCL 100 MG TAB PO SCH (20:27)
[2019-07-04] MEDS: CEROVITE ADV FORMULA TAB PO SCH (06:02)
[2019-07-04 06:53] LABS: Creatinine Clr Calc Pharmacy 75.5 ml/min; Est GFR (African American) 98.7; Est GFR (Non-African American) 85.2
[2019-07-04] MEDS: PHENYTOIN SODIUM ER 100 MG CAP PO SCH ×3 (07:37→21:46)
[2019-07-04] MEDS: QUETIAPINE FUMARATE 25 MG TABLET PO SCH ×3 (07:38→21:46)
[2019-07-04] MEDS: OLANZAPINE 2.5 MG TAB PO SCH (07:38)
[2019-07-04] MEDS: ATORVASTATIN 40 MG TAB PO SCH (07:38)
[2019-07-04] MEDS: ENOXAPARIN INJ 40 MG/0.4 ML SYR SQ SCH (07:39)
[2019-07-04] MEDS: DOXYCYCLINE HYCLATE 100 MG CAP PO SCH ×2 (09:53→21:46)
[2019-07-04 13:15] LABS: BUN Creatinine Ratio 22.7 (10-20); Calcium 9.2 mg/dl (8.5-10.1); Creatinine Clr Calc Pharmacy 78.9 ml/min; Est GFR (African American) 102.3; Est GFR (Non-African American) 88.3; Potassium 4.4 mmol/L (3.5-5.1)
[2019-07-04] MEDS ORDERED: Nursing to Pharmacy Communication ONE (16:22)
[2019-07-04] MEDS ORDERED: QUETIAPINE FUMARATE 25 MG TABLET PO ONE (16:30)
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
[2019-07-04] MEDS: TRAZODONE HCL 100 MG TAB PO SCH (21:46)
[2019-07-05] MEDS: CEROVITE ADV FORMULA TAB PO SCH (06:40)
[2019-07-05] MEDS: PHENYTOIN SODIUM ER 100 MG CAP PO SCH ×2 (07:40→13:23)
[2019-07-05] MEDS: OLANZAPINE 2.5 MG TAB PO SCH (07:40)
[2019-07-05] MEDS: QUETIAPINE FUMARATE 25 MG TABLET PO SCH ×2 (07:40→11:56)
[2019-07-05] MEDS: ATORVASTATIN 40 MG TAB PO SCH (07:40)
[2019-07-05] MEDS: ENOXAPARIN INJ 40 MG/0.4 ML SYR SQ SCH (07:41)
--- NOTE | 2019-07-05 09:11 | Hospitalist Progress Note ---
Date of Service July 05, 2019 Assessment & Plan (1) Behavioral change: likely Secondary to progression of dementia with psychosis family /significant other noted change is personality /memory loss /lack of orientation for past 8 months ( after pt had injury /fall ) has been agitated at home combative/abusive improvement of behavioral disturbance noted upon starting scheduled Seroquel serquel 50 mg in the morning, 50 mg in noon, 75 mg at bedtime, sleep also improved after Trazodone dose increased to 200 mg at bedtime Psych consulted patient scheduled to establish with outpatient Psychiatrist Dr. Walden today at 2 pm (+) Lyme IgG, Western blot for Lyme also reactive lumber puncture was ordered in light of confusion CSF study showed: No elevation of cell count, minimally elevated CSF protein 55(1545mg/dl) ID consulted, Patient was empirically started with IV Rocephin 2 g daily for possible Lyme meningitis CSF Lyme serology/immune blot: Shows no detectable Lyme IgG/IgM No evidence of infection, no LEAD CARE MANAGER Lyme disease or meningitis-no metabolic encephalopathy IV Rocephin discontinued ID recommends p.o. doxycycline 100 mg twice daily for additional 3 weeks to complete 4 weeks of therapy Psychosis/delirium --Psychiatry service consulted for medication recommendations -- Vistaril not effective, discontinued Seroquel PRN not effective, changes to scheduled dosing as mentioned above -- Trazodone increased to 200mg HS to help with sleep -- ff up with outpatient Psychiatrist Dr. Walden later today Seizure disorder Continue Dilantin Neurology consulted will need outpatient monitoring of Dilantin while on Seroquel AVOID HALDOL, IT MAY REDUCE THRESHOLD FOR SEIZURE/PRECIPITATE BREAKTHROUGH SEIZURE Driving privileges currently suspended as per Neuro recommendations. Outpatient follow-up with neurology Hyperlipidemia - on statin Rx Left Foot Fracture Patient slipped on ice on November 2018, has been on left cam boot since, conservative management as per [facility] no complain of pain or discomfort 1 Able to bear weight X-ray of left foot shows no acute fracture dislocation identified outpatient ff up with Ortho Hyponatremia/psychogenic polydipsia, resolved Secondary to psychogenic polydipsia-patient drank almost 3-4 L of fluids , leading to sodium dropped down to 129 Ordered for fluid restriction 1.5 later Sodium level improved to 133 Continue fluid restriction repeat level on ff up with PCP D/C home today ff up with PCP and Psych as outlined in DC instructions Subjective ff up for behavioral changes seen resting in bedside chair, comfortable alert, oriented x 3 answers all questions appropriately calm, cooperative thoughts are organized states he feels fine overall today, just a somewhat anxious about going home today- cannot specify exact reason states he slept pretty good last night, waking up when staff comes in no other symptoms states he is agreeable for discharge today Patient's is scheduled to have outpatient psychiatric appointment for neuropsychiatric evaluation, possible establishing diagnosis for dementia and continued outpatient follow-up Appointment scheduled for tomorrow 07/05/2019 at 2 PM Spoke with patient's significant other Damaris, Patient has some home improvement of behavioral issues, able to sleep through the night, has not been wandering around on the hallway, still has significant thought processing and impulse control disorder Which may be a chronic/persistent issue will need continued medication adjustment and psychiatric follow-up which should be done as an outpatient patient is medically stable to be discharged home with family support, and follow-up with psychiatry as soon as possible Initially patient's significant other/:Girlfrienpat Ocampo was very reluctant, overwhelmed with the prospect of having patient return home in such short notice After multiple counseling provided by myself and case management If patient misses psychiatric appointment tomorrow Clinic does not have any available appointment until February 2020 Patient does have psychiatry clinic follow-up at [facility] on 07/26/2019 It will not be may not be practical to keep patient that karen Ocampo requests patient to stay in hospital for a few more days to see stability pt been in hospital for the past 13 days anti psychiatric meds been adjusted , There is a very good chance that patient's behavioral issues, psychosis related to progression of dementia , no significant improvement may not be noted, in next few days, but pt will not have any psychiatric follow-up for next 2 to 3 weeks which may not be ideal Patient's sister, girlfriend arrived to the hospital, Patient got very agitated and argumentative with family members Given PRN p.o. Seroquel Later patient was seen talking calmly with nursing staff, After long discussion decisions been made the patient will be discharged late afternoon around 1 PM, and go to psychiatric appointment scheduled at 2 pm Home health visiting nurse arranged Review of Systems Review of Systems: All systems reviewed & are unremarkable except as noted in HPI & below Physical Exam Physical Exam: General- oriented x 3, not in distress, speaks in sentences with no effort or accessory muscle use Eyes- anicteric Neck- no JVD Lungs- clear breath sounds bilaterally, no rales/wheezes Heart- normal rate, regular rhythm; no murmurs Abdomen- normal bowel sounds, nondistended, soft, nontender Extremities- no pretibial edema, no calf tenderness left lower ext: boot in place, no edema/erythema/tenderness Neuro- alert, oriented x 3; no gross focal neurologic deficits Skin- warm & dry Results & Data Vital Signs (Past 12 Hours) Vital Signs Temp Pulse Resp BP BP Pulse Ox 07/05/19 08:00 124/78 07/05/19 07:13 36.6 C 93 H 16 164/100 H 96 07/04/19 23:00 36.4 C L 78 18 96/61 L 95 Laboratory Results Laboratory Results - last 24 hr 07/04/19 05:43 Sodium 133 L Potassium 4.4 Chloride 100 Carbon Dioxide 27 Anion Gap 6.0 BUN 20 H Creatinine 0.88 Est Cr Clr Drug Dosing 78.9 Est GFR ( Amer) 102.3 Est GFR (Non-Af Amer) 88.3 BUN/Creatinine Ratio 22.7 H Glucose 93 Calcium 9.2
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
[2019-07-05] MEDS: DOXYCYCLINE HYCLATE 100 MG CAP PO SCH (10:03)
== END 2019-07-05 13:36 | disposition home health service (06) | DRG 884 ==
LOC: ED 19:22 → 4W 22:24 → SUATTDRO 22:24 → 4W 23:31

== ENCOUNTER 2021-07-03 17:27 | Inpatient (IN) ==
--- NOTE | 2021-07-03 18:08 | XRay Report ---
XR chest 1V portable HISTORY: weakness COMPARISON: Chest and right rib series 10/22/2019. FINDINGS: The lungs are clear. The heart is normal in size. No pleural effusions. No pneumothorax. Ol d, healed left-sided rib fractures. IMPRESSION: No acute process. ACT 112: Negative or not required by law. Electronically signed by: Antione Castaneda M.D. 07/03/2021 6:07 PM
[2021-07-03 18:13] LABS: Basophils # (auto) 0.02 K/uL (0-0.2); Basophils % (auto) 0.3 %; Eosinophils # (auto) 0.04 K/uL (0-0.5); Eosinophils % (auto) 0.7 %; Hematocrit (blood only) 37.8 % (42-52); Hemoglobin 13.7 g/dL (14.0-18.0); Immature Granulocytes # (auto) 0.01 K/uL (0.00-0.02); Immature Granulocytes % (auto) 0.2 %; Lymphocytes # (auto) 1.39 K/uL (1.2-3.4); Lymphocytes % (auto) 23.9 %; Mean Corpuscular Hemoglobin 31.9 pg (25-34); Mean Corpuscular Hgb Conc 36.2 g/dL (32-36); Mean Corpuscular Volume 88.1 fL (80-100); Mean Platelet Volume 8.6 fL (7.4-10.4); Monocytes # (auto) 0.56 K/uL (0.11-0.59); Monocytes % (auto) 9.6 %; Neutrophils # (auto) 3.79 K/uL (1.4-6.5); Neutrophils % (auto) 65.3 %; Platelet Count 198 K/uL (130-400); RDW Coefficient of Variation 12.8 % (11.5-14.5); RDW Standard Deviation 41.5 fL (36.4-46.3); Red Blood Count 4.29 M/uL (4.7-6.1); White Blood Count 5.81 K/uL (4.8-10.8)
[2021-07-03 18:32] LABS: Alanine Aminotransferase 27 U/L (12-78); Albumin Level 3.6 gm/dl (3.4-5.0); Aspartate Aminotransferase 12 U/L (15-37); BUN Creatinine Ratio 27.4 (10-20); Blood Urea Nitrogen 21 mg/dl (7-18); Calcium 9.1 mg/dl (8.5-10.1); Carbon Dioxide 27 mmol/L (21-32); Chloride 101 mmol/L (98-107); Creatinine Clr Calc Pharmacy 65.2 ml/min; Est GFR (Non-African American) 91.5 ml/min; Glucose 165 mg/dl (70-99); Potassium 4.4 mmol/L (3.5-5.1); Sodium 133 mmol/L (136-145)
[2021-07-03 18:41] LABS: Albumin Globulin Ratio 1.2 (0.9-2); Alkaline Phosphatase 77 U/L (45-117); Bilirubin,Total 0.2 mg/dl (0.2-1); Globulin 2.9 gm/dl (2.5-4.0); Total Protein 6.5 gm/dl (6.4-8.2)
--- NOTE | 2021-07-03 20:53 | CT Scan Report ---
HEAD CT NONCONTRAST CT DOSE: 537.48 mGy.cm HISTORY: Confusion. TECHNIQUE: Multiaxial CT images of the head were performed without the use of intravenous contrast. A utomated exposure control was utilized for this study. A dose lowering technique was utilized adheri ng to the principles of ALARA. Comparison: Head CT 08/31/2019. Findings: The paranasal sinuses and mastoid air cells are clear. The calvarium and skull base are int act. The ventricles and sulci are within normal limits. There is no mass, hematoma, midline shift, or acute infarct. Impression: No acute intracranial abnormality. ACT 112: Negative or not required by law. Electronically signed by: Antione Castaneda M.D. 07/03/2021 8:52 PM
[2021-07-03 21:00] LABS: Appearance Urine Clear (Clear); Bilirubin Urine Negative (Negative); Blood Urine Negative (Negative); Color Urine Yellow; Glucose Urine UA Negative (Negative); Ketones Urine Negative (Negative); Leukocyte Esterase Urine Negative (Negative); Nitrite Urine Negative (Negative); Protein Urine Negative (Negative); Specific Gravity Urine 1.023 (1.000-1.030); Urobilinogen Urine Negative (Negative); pH Urine 6.5 (4.5-7.5)
--- NOTE | 2021-07-03 23:32 | History & Physical Report ---
Date of Service July 03, 2021 Assessment & Plan (1) Abdominal pain: Plan: Secondary to constipation Anxiety/mood disorder, suboptimal in the last month Dementia, possible incipient functional disability epilepsy, well controlled on Dilantin hyperlipidemia on statin Rx chronic anemia, hemoglobin at baseline past tobacco abuse OBS GMF Bowel regimen Psychiatry consult Re: Worsening depression/anxiety PT OT eval Social service RE discharge planning DVT prophylaxis. Lovenox subcu Full code Patient's sister/POA requesting updates from providers. Ms. Chrystal Rodriguez, contact #[phone]. Text document was generated using [employer] voice recognition software. It may contain grammatical or spelling errors. Kindly contact undersigned for clarification of any documentation item in question. History of Present Illness Chief Complaint: Worsening depression, anxiety Primary Care Provider: Jann Velasquez MD History obtained from patient and records. Patient is a reliable historian. Medical history significant for epilepsy, hyperlipidemia, chronic anemia (baseline hemoglobin 12-13), dementia, anxiety/mood disorder, past tobacco abuse. Last confinement 2018 for behavioral changes likely secondary to underlying dementia, neurocognitive disorder. Last month, patient complained to sister of worsening depression. Patient sad, not eating as much. About 10 pound weight loss in the last month as per sister. Denies suicidality. Patient more anxious than usual. Patient also complaining of achy abdominal pain going to the chest with constipation symptoms. Unclear depression precipitant as per sister. Patient seen at PCPs office 3 weeks ago. Buspirone initiated by PCP. No improvement in anxiety depression despite medication intake as per sister. Patient sister also worried about patient ability to care for self at home with episodic confusion. Patient has to be reminded to take his pills. Patient brought to the ER by sister for further evaluation. 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 Allergies Allergy/AdvReac Type Severity Reaction Status Date / Time No Known Allergies Allergy Verified 07/03/21 19:55 Home Medications Medication Instructions Recorded Confirmed Type multivitamin with minerals 1 tab PO QAM 06/09/19 07/03/21 History phenytoin sodium extended 100 mg 100 mg PO TID 06/09/19 07/03/21 History capsule (Dilantin Extended) ascorbic acid (vitamin C) 1,000 mg 1,000 mg PO QAM 01/03/20 07/03/21 History tablet,extended release atorvastatin 40 mg tablet 40 mg PO DAILY 07/03/21 07/03/21 History buspirone 5 mg tablet 5 mg PO BID 07/03/21 07/03/21 History cholecalciferol (vitamin D3) 125 125 mcg PO DAILY 07/03/21 07/03/21 History mcg (5,000 unit) tablet (Vitamin D3) trazodone 150 mg tablet 150 mg PO HS 07/03/21 07/03/21 History Past Med/Surg History Medical History (Updated 07/04/21 @ 04:34 by Harjit Begum MD) Ankle fracture, left Behavioral change Displaced fracture of lateral malleolus of left fibula, sequela Epilepsy Seizure Family History Mother Anxiety Other No significant family history Social History Smoking Status: Never smoker Hx Alcohol Use: Yes Alcohol type: hard liquor Hx Substance Use: No Preferred Language: Hungarian Communication Ability: Effective Incendiary Powder Mixer Required: No Beliefs That Will Affect Care: None Current Living Situation: Alone Other Information That Helps Us Care for You: No Feels Safe at Home: No Is there a partner from a previous relationship who is making you feel unsafe now?: No Any Concerns about Your Family Situation: No Would You Like to Speak to Someone About Your Situation: No Safety Concerns: Afraid for Self Assistive Devices: Glasses Review of Systems Review of Systems: As per HPI, all 10 systems reviewed, all other ROS negative Physical Exam Physical Exam: GENERAL: slightly anxious, no respiratory distress SKIN: Pallor , warm HEENT: Bespectacled, pale palpebral conjunctivae, no ptosis, dry buccal mucosa NECK : Supple, short neck, no tenderness CHEST : CTA, no tenderness HEART : RRR, no obvious murmurs ABDOMEN: No overt distention, nontender EXTREMITIES : No LE swelling/tenderness, no other conspicuous deformities noted NEUROLOGIC : Coherent, no facial asymmetry, gait and stance not assessed Results & Data Results & Data ([facility]) Vital Signs (Past 12 Hours) Vital Signs Temp Pulse Resp BP Pulse Ox 10/21/21 17:48 36.5 C 99 H 20 111/64 96 Laboratory Results Laboratory Results WBC 5.81 K/uL (4.8-10.8) 07/03/21 17:55 RBC 4.29 M/uL (4.7-6.1) L 07/03/21 17:55 Hgb 13.7 g/dL (14.0-18.0) L 07/03/21 17:55 Hct 37.8 % (42-52) L 07/03/21 17:55 MCV 88.1 fL (80-100) 07/03/21 17:55 MCH 31.9 pg (25-34) 07/03/21 17:55 MCHC 36.2 g/dL (32-36) H 07/03/21 17:55 RDW Std Deviation 41.5 fL (36.4-46.3) 07/03/21 17:55 RDW Coeff of Bertha 12.8 % (11.5-14.5) 07/03/21 17:55 Plt Count 198 K/uL (130-400) 07/03/21 17:55 MPV 8.6 fL (7.4-10.4) 07/03/21 17:55 Immature Gran % (Auto) 0.2 % 07/03/21 17:55 Neut % (Auto) 65.3 % 07/03/21 17:55 Lymph % (Auto) 23.9 % 07/03/21 17:55 [place] % (Auto) 9.6 % 07/03/21 17:55 Eos % (Auto) 0.7 % 07/03/21 17:55 Baso % (Auto) 0.3 % 07/03/21 17:55 Neut # (Auto) 3.79 K/uL (1.4-6.5) 07/03/21 17:55 Lymph # (Auto) 1.39 K/uL (1.2-3.4) 07/03/21 17:55 [place] # (Auto) 0.56 K/uL (0.11-0.59) 07/03/21 17:55 Eos # (Auto) 0.04 K/uL (0-0.5) 07/03/21 17:55 Baso # (Auto) 0.02 K/uL (0-0.2) 07/03/21 17:55 Immature Gran # (Auto) 0.01 K/uL (0.00-0.02) 07/03/21 17:55 Sodium 133 mmol/L (136-145) L 07/03/21 18:00 Potassium 4.4 mmol/L (3.5-5.1) 07/03/21 18:00 Chloride 101 mmol/L (98-107) 07/03/21 18:00 Carbon Dioxide 27 mmol/L (21-32) 07/03/21 18:00 Anion Gap 5.0 (3-11) 07/03/21 18:00 BUN 21 mg/dl (7-18) H 07/03/21 18:00 Creatinine 0.78 mg/dl (0.6-1.4) 07/03/21 18:00 Est Cr Clr Drug Dosing 65.2 ml/min 07/03/21 18:00 Est GFR ( Amer) 106.0 ml/min 07/03/21 18:00 Est GFR (Non-Af Amer) 91.5 ml/min 07/03/21 18:00 BUN/Creatinine Ratio 27.4 (10-20) H 07/03/21 18:00 Glucose 165 mg/dl (70-99) H 07/03/21 18:00 Calcium 9.1 mg/dl (8.5-10.1) 07/03/21 18:00 Total Bilirubin 0.2 mg/dl (0.2-1) 07/03/21 18:00 AST 12 U/L (15-37) L 07/03/21 18:00 ALT 27 U/L (12-78) 07/03/21 18:00 Alkaline Phosphatase 77 U/L (45-117) 07/03/21 18:00 Ammonia 19.1 umol/L (11-32) 07/03/21 23:09 Total Protein 6.5 gm/dl (6.4-8.2) 07/03/21 18:00 Albumin 3.6 gm/dl (3.4-5.0) 07/03/21 18:00 Globulin 2.9 gm/dl (2.5-4.0) 07/03/21 18:00 Albumin/Globulin Ratio 1.2 (0.9-2) 07/03/21 18:00 TSH 1.730 uIu/ml (0.300-4.500) 07/03/21 18:00 Urine Color Yellow 07/03/21 20:25 Urine Appearance Clear (Clear) 07/03/21 20:25 Urine pH 6.5 (4.5-7.5) 07/03/21 20:25 Ur Specific [place] 1.023 (1.000-1.030) 07/03/21 20:25 Urine Protein Negative (Negative) 07/03/21 20:25 Urine Glucose (UA) Negative (Negative) 07/03/21 20:25 Urine Ketones Negative (Negative) 07/03/21 20:25 Urine Blood Negative (Negative) 07/03/21 20:25 Urine Nitrite Negative (Negative) 07/03/21 20:25 Urine Bilirubin Negative (Negative) 07/03/21 20:25 Urine Urobilinogen Negative (Negative) 07/03/21 20:25 Ur Leukocyte Esterase Negative (Negative) 07/03/21 20:25 COVID-19 Eval Order Covid19 at [facility] 07/03/21 23:10 Impressions Chest X-Ray 07/03/21 17:50 XR chest 1V portable HISTORY: weakness COMPARISON: Chest and right rib series 10/22/2019. FINDINGS: The lungs are clear. The heart is normal in size. No pleural effusions. No pneumothorax. Old, healed left-sided rib fractures. IMPRESSION: No acute process. ACT 112: Negative or not required by law. Electronically signed by: Antione Castaneda M.D. 07/03/2021 6:[address] 07/03/21 20:[address] DOSE: 537.48 mGy.cm HISTORY: Confusion. TECHNIQUE: Multiaxial CT images of the head were performed without the use of intravenous contrast. Automated exposure control was utilized for this study. A dose lowering technique was utilized adhering to the principles of ALARA. Comparison: Head CT 08/31/2019. Findings: The paranasal sinuses and mastoid air cells are clear. The calvarium and skull base are intact. The ventricles and sulci are within normal limits. There is no mass, hematoma, midline shift, or acute infarct. Impression: No acute intracranial abnormality. ACT 112: Negative or not required by law. Electronically signed by: Antione Castaneda M.D. 07/03/2021 8:[address] abdomen pelvis initial read: No acute abnormalities noted in the abdomen and pelvis. No evidence of bowel obstruction. No abnormal fluid or regional inflammatoryreaction. No evidence of urinarytract calculus or obstruction. EKG as per my interpretation: Rate 90, NSR, LAD, LAFB, no ischemia
[2021-07-03] MEDS ORDERED: SODIUM CHLORIDE 0.9% 1000ML 1,000 ML IV STA (23:34)
[2021-07-03 23:35] LABS: D Dimer 310 ug/L FEU (0-500); Partial Thromboplastin Ratio 0.9; Partial Thromboplastin Time 23.3 Seconds (21.0-31.0)
--- NOTE | 2021-07-04 00:05 | Emergency Department Note ---
History of Present Illness General Chief complaint: Confusion Stated complaint: CONFUSED, MEMORY LOSS Time Seen by Provider: 07/03/21 19:54 Source: patient and family (Sister) History of Present Illness Provider complaint: Increased confusion Onset (ago): month(s) Location: head Severity: moderate Pain Consistency: + intermittent Maximum Pain Intensity: 7 Quality: + other (Confusion and memory loss) Relieved By: + none Associated symptoms: + chest pain; no cough, no fever/chills, no nausea/vomiting or no shortness of breath This is a 70-year-old male brought in by his sister for evaluation of increased confusion. He has had memory issues for about 2 to 3 months. Over the past 2 to 3 weeks he has been increasingly confused. He wakes up in the morning and does not know how to function. He has to be told to wash himself or to eat something. He does not know if he has taken any of his medications and so his sister has been providing his medications for him to ensure that he takes them. He denies any injury or head trauma. He denies any numbness or weakness to one side of his body. He has no slurring of his speech or difficulty walking. He denies any fever, cough or cold symptoms, shortness of breath, abdominal pain, vomiting, diarrhea or urinary symptoms. He does state that he has been constipated recently and also has had some weight loss. He does also complain of a week of left-sided chest pain which she describes as sharp and intermittent and worse when he touches his chest. Home Medications Medication Instructions Recorded Confirmed Type multivitamin with minerals 1 tab PO QAM 06/09/19 07/03/21 History phenytoin sodium extended 100 mg 100 mg PO TID 06/09/19 07/03/21 History capsule (Dilantin Extended) ascorbic acid (vitamin C) 1,000 mg 1,000 mg PO QAM 01/03/20 07/03/21 History tablet,extended release atorvastatin 40 mg tablet 40 mg PO DAILY 07/03/21 07/03/21 History buspirone 5 mg tablet 5 mg PO BID 07/03/21 07/03/21 History cholecalciferol (vitamin D3) 125 125 mcg PO DAILY 07/03/21 07/03/21 History mcg (5,000 unit) tablet (Vitamin D3) trazodone 150 mg tablet 150 mg PO HS 07/03/21 07/03/21 History Allergies Allergy/AdvReac Type Severity Reaction Status Date / Time No Known Allergies Allergy Verified 07/03/21 19:55 Past Med/Surg History Medical History (Updated 07/04/21 @ 00:12 by Kevon Juan MD) Ankle fracture, left Behavioral change Displaced fracture of lateral malleolus of left fibula, sequela Epilepsy Seizure Family History Mother Anxiety Other No significant family history Social History Smoking Status: Never smoker Hx Substance Use: No Preferred Language: Cypriot Communication Ability: Effective Protohistorian Required: No Beliefs That Will Affect Care: None Current Living Situation: Significant Other Feels Safe at Home: Yes Assistive Devices: Brace/Splint/Immobilizer and Glasses Review of Systems See HPI for pertinent positives & negatives. and A total of 10 systems reviewed and were otherwise negative Physical Exam Vital Signs Vital Signs - 24 hr 07/03/21 17:48 Temperature 36.5 C Temperature Source Oral Pulse Rate 99 H Pulse Rhythm Regular Pulse Strength Normal Respiratory Rate 20 Respiratory Effort / Characteristics Non-Labored Spontaneous Respiratory Depth Normal Respiratory Pattern Regular Blood Pressure 111/64 Blood Pressure Mean 79 Blood Pressure Position Sitting Pulse Oximetry 96 Oxygen Delivery Method Room Air Sepsis Recent Fever Within 48 Hours No Sepsis New/Unexplained Change in Mental Status No Sepsis Action Taken by Nursing No Action Required Constitutional: Vital signs reviewed. Eyes: Pupils are equal round reactive to light. Conjunctiva are noninjected. ENT: Pharynx is clear without erythema or exudate. Mucous membranes are moist. Neck supple without meningeal signs. Respiratory: Clear to auscultation bilaterally. Breath sounds are equal bilaterally. Cardiovascular: Regular rate and rhythm. No rubs or gallops. GI: Soft, nondistended and nontender. Bowel sounds are present. Musculoskeletal: No peripheral edema. No lower extremity tenderness. Left lower rib tenderness without crepitus. Integumentary: No cyanosis. or jaundice. Neurologic: The patient is awake and alert. He is alert and oriented x4. Retail Loss Prevention Investigator nial nerves II-XII are intact. Motor is 5 out of 5 all extremities. Sensation is intact to light touch all extremities. Normal speech. No pronator drift. No limb ataxia. Psychiatric: Normal affect. Not anxious appearing. Medical Decision Making Differential Diagnosis Dementia, CVA, intracranial mass, pleurisy, pneumonia, UTI Medical Records Attestation: I reviewed the patient's medical records. I did perform a limited focused review of portions of the patient's old chart on the electronic medical record. The patient has had no recent pertinent visits to this hospital. Home Medications Current Medication List: was personally reviewed by me Laboratory Data Attestation: I reviewed the patient's lab results. Result diagrams: 07/03/21 17:55 07/03/21 18:00 Lab Results 07/03/21 07/03/21 07/03/21 Range/Units 17:55 18:00 20:25 WBC 5.81 (4.8-10.8) K/uL RBC 4.29 L (4.7-6.1) M/uL Hgb 13.7 L (14.0-18.0) g/dL Hct 37.8 L (42-52) % MCV 88.1 (80-100) fL MCH 31.9 (25-34) pg MCHC 36.2 H (32-36) g/dL RDW Std Deviation 41.5 (36.4-46.3) fL RDW Coeff of Bertha 12.8 (11.5-14.5) % Plt Count 198 (130-400) K/uL MPV 8.6 (7.4-10.4) fL Immature Gran % (Auto) 0.2 % Neut % (Auto) 65.3 % Lymph % (Auto) 23.9 % [place] % (Auto) 9.6 % Eos % (Auto) 0.7 % Baso % (Auto) 0.3 % Neut # (Auto) 3.79 (1.4-6.5) K/uL Lymph # (Auto) 1.39 (1.2-3.4) K/uL [place] # (Auto) 0.56 (0.11-0.59) K/uL Eos # (Auto) 0.04 (0-0.5) K/uL Baso # (Auto) 0.02 (0-0.2) K/uL Immature Gran # (Auto) 0.01 (0.00-0.02) K/uL APTT (21.0-31.0) Seconds PTT Ratio D-Dimer (0-500) ug/L FEU Sodium 133 L (136-145) mmol/L Potassium 4.4 (3.5-5.1) mmol/L Chloride 101 (98-107) mmol/L Carbon Dioxide 27 (21-32) mmol/L Anion Gap 5.0 (3-11) BUN 21 H (7-18) mg/dl Creatinine 0.78 (0.6-1.4) mg/dl Est Cr Clr Drug Dosing 65.2 ml/min Est GFR ( Amer) 106.0 ml/min Est GFR (Non-Af Amer) 91.5 ml/min BUN/Creatinine Ratio 27.4 H (10-20) Glucose 165 H (70-99) mg/dl Calcium 9.1 (8.5-10.1) mg/dl Total Bilirubin 0.2 (0.2-1) mg/dl AST 12 L (15-37) U/L ALT 27 (12-78) U/L Alkaline Phosphatase 77 (45-117) U/L Ammonia (11-32) umol/L Total Protein 6.5 (6.4-8.2) gm/dl Albumin 3.6 (3.4-5.0) gm/dl Globulin 2.9 (2.5-4.0) gm/dl Albumin/Globulin Ratio 1.2 (0.9-2) TSH 1.730 (0.300-4.500) uIu/ml Urine Color Yellow Urine Appearance Clear (Clear) Urine pH 6.5 (4.5-7.5) Ur Specific [place] 1.023 (1.000-1.030) Urine Protein Negative (Negative) Urine Glucose (UA) Negative (Negative) Urine Ketones Negative (Negative) Urine Blood Negative (Negative) Urine Nitrite Negative (Negative) Urine Bilirubin Negative (Negative) Urine Urobilinogen Negative (Negative) Ur Leukocyte Esterase Negative (Negative) Phenytoin (10-20) mcg/ml COVID-19 Eval Order 07/03/21 07/03/21 07/03/21 Range/Units 23:09 23:09 23:09 WBC (4.8-10.8) K/uL RBC (4.7-6.1) M/uL Hgb (14.0-18.0) g/dL Hct (42-52) % MCV (80-100) fL MCH (25-34) pg MCHC (32-36) g/dL RDW Std Deviation (36.4-46.3) fL RDW Coeff of Bertha (11.5-14.5) % Plt Count (130-400) K/uL MPV (7.4-10.4) fL Immature Gran % (Auto) % Neut % (Auto) % Lymph % (Auto) % [place] % (Auto) % Eos % (Auto) % Baso % (Auto) % Neut # (Auto) (1.4-6.5) K/uL Lymph # (Auto) (1.2-3.4) K/uL [place] # (Auto) (0.11-0.59) K/uL Eos # (Auto) (0-0.5) K/uL Baso # (Auto) (0-0.2) K/uL Immature Gran # (Auto) (0.00-0.02) K/uL APTT 23.3 (21.0-31.0) Seconds PTT Ratio 0.9 D-Dimer 310 (0-500) ug/L FEU Sodium (136-145) mmol/L Potassium (3.5-5.1) mmol/L Chloride (98-107) mmol/L Carbon Dioxide (21-32) mmol/L Anion Gap (3-11) BUN (7-18) mg/dl Creatinine (0.6-1.4) mg/dl Est Cr Clr Drug Dosing ml/min Est GFR ( Amer) ml/min Est GFR (Non-Af Amer) ml/min BUN/Creatinine Ratio (10-20) Glucose (70-99) mg/dl Calcium (8.5-10.1) mg/dl Total Bilirubin (0.2-1) mg/dl AST (15-37) U/L ALT (12-78) U/L Alkaline Phosphatase (45-117) U/L Ammonia 19.1 (11-32) umol/L Total Protein (6.4-8.2) gm/dl Albumin (3.4-5.0) gm/dl Globulin (2.5-4.0) gm/dl Albumin/Globulin Ratio (0.9-2) TSH (0.300-4.500) uIu/ml Urine Color Urine Appearance (Clear) Urine pH (4.5-7.5) Ur Specific [place] (1.000-1.030) Urine Protein (Negative) Urine Glucose (UA) (Negative) Urine Ketones (Negative) Urine Blood (Negative) Urine Nitrite (Negative) Urine Bilirubin (Negative) Urine Urobilinogen (Negative) Ur Leukocyte Esterase (Negative) Phenytoin 15.1 (10-20) mcg/ml COVID-19 Eval Order 07/03/21 Range/Units 23:10 WBC (4.8-10.8) K/uL RBC (4.7-6.1) M/uL Hgb (14.0-18.0) g/dL Hct (42-52) % MCV (80-100) fL MCH (25-34) pg MCHC (32-36) g/dL RDW Std Deviation (36.4-46.3) fL RDW Coeff of Bertha (11.5-14.5) % Plt Count (130-400) K/uL MPV (7.4-10.4) fL Immature Gran % (Auto) % Neut % (Auto) % Lymph % (Auto) % [place] % (Auto) % Eos % (Auto) % Baso % (Auto) % Neut # (Auto) (1.4-6.5) K/uL Lymph # (Auto) (1.2-3.4) K/uL [place] # (Auto) (0.11-0.59) K/uL Eos # (Auto) (0-0.5) K/uL Baso # (Auto) (0-0.2) K/uL Immature Gran # (Auto) (0.00-0.02) K/uL APTT (21.0-31.0) Seconds PTT Ratio D-Dimer (0-500) ug/L FEU Sodium (136-145) mmol/L Potassium (3.5-5.1) mmol/L Chloride (98-107) mmol/L Carbon Dioxide (21-32) mmol/L Anion Gap (3-11) BUN (7-18) mg/dl Creatinine (0.6-1.4) mg/dl Est Cr Clr Drug Dosing ml/min Est GFR ( Amer) ml/min Est GFR (Non-Af Amer) ml/min BUN/Creatinine Ratio (10-20) Glucose (70-99) mg/dl Calcium (8.5-10.1) mg/dl Total Bilirubin (0.2-1) mg/dl AST (15-37) U/L ALT (12-78) U/L Alkaline Phosphatase (45-117) U/L Ammonia (11-32) umol/L Total Protein (6.4-8.2) gm/dl Albumin (3.4-5.0) gm/dl Globulin (2.5-4.0) gm/dl Albumin/Globulin Ratio (0.9-2) TSH (0.300-4.500) uIu/ml Urine Color Urine Appearance (Clear) Urine pH (4.5-7.5) Ur Specific [place] (1.000-1.030) Urine Protein (Negative) Urine Glucose (UA) (Negative) Urine Ketones (Negative) Urine Blood (Negative) Urine Nitrite (Negative) Urine Bilirubin (Negative) Urine Urobilinogen (Negative) Ur Leukocyte Esterase (Negative) Phenytoin (10-20) mcg/ml COVID-19 Eval Order Covid19 at [facility] Imaging Data Radiologist's Impression: Chest X-Ray 07/03/21 17:50 XR chest 1V portable HISTORY: weakness COMPARISON: Chest and right rib series 10/22/2019. FINDINGS: The lungs are clear. The heart is normal in size. No pleural effusions. No pneumothorax. Old, healed left-sided rib fractures. IMPRESSION: No acute process. ACT 112: Negative or not required by law. Electronically signed by: Antione Castaneda M.D. 07/03/2021 6:[address] 07/03/21 20:[address] DOSE: 537.48 mGy.cm HISTORY: Confusion. TECHNIQUE: Multiaxial CT images of the head were performed without the use of in travenous contrast. Automated exposure control was utilized for this study. A dose lowering technique was utilized adhering to the principles of ALARA. Comparison: Head CT 08/31/2019. Findings: The paranasal sinuses and mastoid air cells are clear. The calvarium and skull base are intact. The ventricles and sulci are within normal limits. There is no mass, hematoma, midline shift, or acute infarct. Impression: No acute intracranial abnormality. ACT 112: Negative or not required by law. Electronically signed by: Antione Castaneda M.D. 07/03/2021 8:52 PM ECG Data Attestation: I personally reviewed and interpreted this ECG as follows: Indication: + altered mental status and + chest pain Rate (beats per minute): 89 Rhythm: + normal sinus ECG [place]: + Left axis deviation ECG ST segments: no ST elevation ECG Findings: no PVCs MDM Narrative I did evaluate the patient as noted above. The patient is complaining of progressive confusion for the past 2 to 3 months. Over the past 2 3 weeks he has gotten much worse and is having difficulties with his ADLs. His sister has been staying with him in order to help him take his medications and feed him and clean him. They were unable to reach his primary care physician and so came here today. He does also complain of some pleuritic chest pain on the left side for the past week which is reproducible on examination. IV access was established. I did place an order for continuous cardiac monitoring. The monitor showed normal sinus rhythm at a rate of 89 bpm. I did order and personally review the patient's 12-lead EKG as described above. He has no evidence of acute ischemia. I did order and personally reviewed the images of the patient's chest x-ray as described above. Chest x-ray does not show pneumonia. I did order a urine analysis. He does not have a UTI. I did order and review the patient's blood work as noted in the electronic medical record. CBC demonstrates a mild anemia of 13.7. He has no leukocytosis or thrombocytopenia. His electrolytes are unremarkable other than a sodium of 133. Glucose is 165. LFTs are unremarkable. I did order a CT of the head. I did review the images myself as well as the radiology report as described above. Th ere is no evidence of acute intracranial abnormality. I did reassess the patient. I did discuss the test results with the patient and his sister. As he is unable to function at home he will be hospitalized for further care and evaluation. I did discuss case with the hospitalist and senior case manager. Impression & Plan Confusion, Hyponatremia, Left-sided chest pain Discharge Plan Visit Data Chief Complaint: Confusion Stated Complaint: CONFUSED, MEMORY LOSS ED Provider: Kevon Juan Discharge Problem: Confusion, Hyponatremia, Left-sided chest pain Patient Disposition: Being Evaluated by Hospitalist Forms Stand Alone Forms: [facility] Prescriptions Prescriptions: No Action ascorbic acid (vitamin C) 1,000 mg Tablet Extended Release 1,000 mg PO QAM RF: 0 phenytoin sodium extended [Dilantin Extended] 100 mg Capsule 100 mg PO TID RF: 0 multivitamin with minerals Tablet 1 tab PO QAM RF: 0 atorvastatin 40 mg tablet 40 mg PO DAILY RF: 0 buspirone 5 mg tablet 5 mg PO BID RF: 0 trazodone 150 mg tablet 150 mg PO HS RF: 0 cholecalciferol (vitamin D3) [Vitamin D3] 125 mcg (5,000 unit) Tablet 125 mcg PO DAILY RF: 0 Referrals Referrals: Jann Velasquez MD [Primary Care Provider] -
[2021-07-04] MEDS ORDERED: OPTIRAY 320 100ml IV ONE (01:11)
[2021-07-04] MEDS ORDERED: PROMETHAZINE HCL 6.25 MG in SODIUM CHLORIDE 0.9% 50 ML IV PRN (01:55)
[2021-07-04] MEDS ORDERED: IBUPROFEN 200 MG TAB PO PRN (01:55)
[2021-07-04 02:21] LABS: Lipase 189 U/L (73-393); Magnesium 2.2 mg/dl (1.8-2.4); Troponin I < 0.015 ng/ml (0-0.045)
[2021-07-04] MEDS ORDERED: POLYETHYLENE (MIRALAX) 17 GM PACK PO STA (02:38)
[2021-07-04] MEDS ORDERED: POLYETHYLENE (MIRALAX) 17 GM PACK PO PRN (02:38)
[2021-07-04] MEDS: DOCUSATE SODIUM/SENNA 50/8.6MG TAB PO SCH ×3 (05:28→21:22)
[2021-07-04 08:03] LABS: Estimated Average Glucose 114 mg/dl; Hemoglobin A1C 5.6 % (4.5-5.6)
[2021-07-04 08:11] LABS: Basophils # (auto) 0.03 K/uL (0-0.2); Basophils % (auto) 0.7 %; Eosinophils # (auto) 0.04 K/uL (0-0.5); Eosinophils % (auto) 0.9 %; Hematocrit (blood only) 38.1 % (42-52); Hemoglobin 13.8 g/dL (14.0-18.0); Lymphocytes # (auto) 1.64 K/uL (1.2-3.4); Lymphocytes % (auto) 35.9 %; Mean Corpuscular Hemoglobin 32.2 pg (25-34); Mean Corpuscular Hgb Conc 36.2 g/dL (32-36); Mean Corpuscular Volume 88.8 fL (80-100); Mean Platelet Volume 9.2 fL (7.4-10.4); Monocytes # (auto) 0.73 K/uL (0.11-0.59); Neutrophils # (auto) 2.13 K/uL (1.4-6.5); Neutrophils % (auto) 46.5 %; Platelet Count 207 K/uL (130-400); RDW Coefficient of Variation 12.7 % (11.5-14.5); RDW Standard Deviation 40.5 fL (36.4-46.3); Red Blood Count 4.29 M/uL (4.7-6.1); White Blood Count 4.57 K/uL (4.8-10.8)
--- NOTE | 2021-07-04 08:41 | CT Scan Report ---
CT SCAN OF THE ABDOMEN AND PELVIS WITH IV CONTRAST CLINICAL HISTORY: Generalized abdominal pain. COMPARISON STUDY: No priors. TECHNIQUE: Following the IV administration of 94 cc of Optiray 320, CT scan of the abdomen and pelvi s is performed from the lung bases to the proximal femora. Images are reviewed in the axial, sagittal , and coronal planes. IV contrast was administered without complication. A dose lowering technique wa s utilized adhering to the principles of ALARA. Examination is degraded by motion artifact. CT DOSE: 254.93 mGy.cm FINDINGS: Lung bases: The heart is normal in size and without pericardial effusion. The lung bases are clear. Liver: The contrast-enhanced liver is normal in size, contour, and attenuation. There is no intrahepa tic biliary ductal dilatation. The hepatic veins and portal veins are patent. A 1.4 cm cyst is noted in the left lobe. Gallbladder: Unremarkable. Spleen: Normal in size and attenuation. Pancreas: Unremarkable. Adrenal glands: There is nonspecific thickening of the adrenal glands. Kidneys: The contrast enhanced kidneys are normal in size and without hydronephrosis. The kidneys enh ance symmetrically. Abdominal vasculature: The abdominal aorta is normal in course and caliber noting advanced atheroscle rotic calcification. Bowel: The gastric mucosa appears thickened and hyperemic. There is mild to moderate colonic fecal re tention. No bowel obstruction is seen. The appendix is not visualized. Peritoneum: There is no intraperitoneal free air or abdominal ascites. Lymphadenopathy: None. Pelvic viscera: The prostate gland is markedly enlarged and heterogeneous noting median lobe hypertro phy. The bladder wall is thickened and trabeculated indicating chronic outlet obstruction. Skeletal structures: The skeletal structures are osteopenic. There is moderate lumbosacral spondylosi s. No lytic or blastic lesions are seen. Soft tissues: The patient is cachectic. IMPRESSION: 1. Significantly motion compromised examination. 2. Question gastritis. Clinical correlation will be required. If warranted this could be further asse ssed with endoscopy. 3. Moderate constipation. No bowel obstruction is seen. 4. Marked prostatomegaly with evidence of chronic bladder outlet obstruction. 5. Additional findings as above. ACT 112: Negative or not required by law. Electronically signed by: Prashanth Jordan M.D. 07/04/2021 8:39 AM
[2021-07-04 08:44] LABS: BUN Creatinine Ratio 25.3 (10-20); Calcium 8.6 mg/dl (8.5-10.1); Creatinine Clr Calc Pharmacy 86.2 ml/min; Est GFR (African American) 118.9 ml/min; Est GFR (Non-African American) 102.6 ml/min; Potassium 3.9 mmol/L (3.5-5.1)
[2021-07-04] MEDS ORDERED: busPIRone 5 MG TAB PO SCH (09:00)
--- NOTE | 2021-07-04 10:01 | Electrocardiogram Report ---
Test Reason : Blood Pressure : / mmHG Vent. Rate : 089 BPM Atrial Rate : 089 BPM P-R Int : 142 ms QRS Dur : 090 ms QT Int : 348 ms P-R-T Axes : 056 -31 045 degrees QTc Int : 423 ms Normal sinus rhythm with occasional Premature atrial complexes Left anterior fascicular block Abnormal ECG When compared with ECG of 21-JUN-2019 20:41, Minor ST elevation in Lateral leads no longer present T wave inversion no longer evident in Inferior leads Confirmed by Aditya Ni ([id number]) on 07/04/2021 10:00:41 AM Referred By: REFERRED SELF Confirmed By:Aditya Ni
[2021-07-04] MEDS: ATORVASTATIN 40 MG TAB PO SCH (10:18)
[2021-07-04] MEDS: CEROVITE ADV FORMULA TAB PO SCH (10:18)
[2021-07-04] MEDS: ENOXAPARIN INJ 40 MG/0.4 ML SYR SQ SCH (10:19)
[2021-07-04] MEDS: PHENYTOIN SODIUM ER 100 MG CAP PO SCH ×3 (10:19→21:22)
--- NOTE | 2021-07-04 12:44 | Psychiatric Consultation ---
Date of Consultation July 04, 2021 Impression / Recommendations Impression 70 yo man with history of epilepsy, HLD, anemia, dementia, depression and anxiety admitted medically for chest pain and worsening mood symptoms. Psychiatry was consulted by Dr. Begum for recommendations regarding mood symptoms. Diagnostically consistent with MDD as well as multiple challenging medical co-morbidities and neurocognitive disorder per history. He endorses multiple symptoms of depression, many which he feels are exacerbated by or attributed to his medical conditions especially constipation and foot numbness. Addressing these symptoms should provide symptomatic relief as well as improvement in depression and would also benefit from initiation of an SSRI, recommend sertraline. Could consider switching trazodone to mirtazapine as he has not found it helpful for sleep. He is not felt to current require inpatient psychiatric hospitalization as he denies SI, and though his chronic risk of self-harm is elevated from multiple chronic medical conditions, it appears he and his sister (CATHERINE) are seeking a more supportive living environment which should also help reduce his risk. I also wonder about a possibility of Parkinson's disease given his right hand tremor, constipation and masked facies though I did not do any formal neurological assessment nor review his chart but if this diagnosis is present there would be other potential treatments that could be helpful for his motor symptoms and therefore improve his mood. Psych liason will attempt to gather further collateral from his sister and POA. (1) Major depression: (2) Anxiety: (3) Neurocognitive disorder: -Start sertraline 25 mg qd for depression. After 7 days could be increased to 50mg qd if he is tolerating it well. -Consider stopping trazodone and starting mirtazapine 15mg qhs for insomnia. -Would stop buspar as he finds this unhelpful. 5mg BID to 5 mg qd for 2 days then stop. -Consider referrals for memory loss/dementia support groups or PT/OT to allow him to find ways to maintain some mobility and independence in the midst of his memory loss Risk Factors Assessment Do You Have Access To A Gun?: No Psych History Identifying Data 70 yo man with history of epilepsy, HLD, anemia, dementia, depression and anxiety admitted medically for chest pain and worsening mood symptoms. Psychiatry was consulted by Dr. Begum for recommendations regarding mood symptoms. Chief Complaint "The main issue is that I can't go to the bathroom". History of Present Illness 70 yo man with history of epilepsy, HLD, anemia, dementia, depression and anxie ty admitted medically for chest pain and worsening mood symptoms. States frustration with ongoing and worsening medical challenges which are impacting his memory and causing impairments in functional mobility, sleep and ADLs. This is understandably frustrating and upsetting for him particularly given that he used to spend a lot of time walking and enjoyed being able to be outside. Now he reports watching more TV and feeling socially isolated. His biggest concerns are his constipation (which he feels is the reason he doesn't sleep well) and his bilateral foot numbness which causes him a lot of distress. he is less focused on any chest pain today though states it is still present when asked. He identifies multiple depressive symptoms but denies any SI. He Doesn't find the trazodone nor buspar helpful. Discussed options of sertraline (which he doesn't believe he's taken before). Also discussed mirtazapine which he has taken in the past though he couldn't recall if it was helpful. No hx of deanna. No psychotic sx. No symptoms of delirium. Further information per psych liason note 07/04/21: " Patient is a single male who currently has been living alone. Due to his decrease in independence, patient and his sister have been discussing him moving to a personal fpc or half-way. Patient is in agreement with this decision, stating he is frustrated because he cannot remember to take medications and needs reminders for all ADL's. States he has not slept for days and has been struggling with sleep. His appetite is good, but states he is still losing weight. Denies any suicidal thoughts and states he would never hurt himself, but admits to struggling with living this way. States he has been taking the Trazodone for years and does not believe it is effective any longer. Eye contact is good, appears depressed and anxious. Scored a 16 on the PHQ 9, denies any hallucinations. " Past Psychiatric History Previous Psych History: Do You Have Access To A Gun?: No Past Medication Trials: remeron 15mg qhs, atarax 25mg Allergies Allergy/AdvReac Type Severity Reaction Status Date / Time No Known Allergies Allergy Verified 07/03/21 19:55 Home Medications Medication Instructions Recorded Confirmed Type multivitamin with minerals 1 tab PO QAM 06/09/19 07/03/21 History phenytoin sodium extended 100 mg 100 mg PO TID 06/09/19 07/03/21 History capsule (Dilantin Extended) ascorbic acid (vitamin C) 1,000 mg 1,000 mg PO QAM 01/03/20 07/03/21 History tablet,extended release atorvastatin 40 mg tablet 40 mg PO DAILY 07/03/21 07/03/21 History buspirone 5 mg tablet 5 mg PO BID 07/03/21 07/03/21 History cholecalciferol (vitamin D3) 125 125 mcg PO DAILY 07/03/21 07/03/21 History mcg (5,000 unit) tablet (Vitamin D3) trazodone 150 mg tablet 150 mg PO HS 07/03/21 07/03/21 History Personal History Beliefs That Will Affect Care: None Patient History Medical History (Updated 07/04/21 @ 12:36 by Usha Vasquez MD) Ankle fracture, left Anxiety Behavioral change Displaced fracture of lateral malleolus of left fibula, sequela Epilepsy Major depression Seizure Family History Mother Anxiety Other No significant family history Social History Smoking Status: Never smoker Hx Alcohol Use: Yes Alcohol type: hard liquor Hx Substance Use: No Preferred Language: Polish Communication Ability: Effective Economist Research Assistant Required: No Beliefs That Will Affect Care: None Current Living Situation: Alone Other Information That Helps Us Care for You: No Feels Safe at Home: No Is there a partner from a previous relationship who is making you feel unsafe now?: No Any Concerns about Your Family Situation: No Would You Like to Speak to Someone About Your Situation: No Safety Concerns: Afraid for Self Assistive Devices: None Physical Exam Psychiatric: Orientation: alert, oriented to person, oriented to place and cooperative Apperance: appropriately dressed and appropriately groomed Eye Contact: good eye contact Motor Behavior: + tremor (resting unilateral tremor in right hand ); + abnormal motor movements (shaking feet which he reports is due to numbness that feels uncomfortable ) Speech: normal rate/rhythm/volume of speech Affect: + flat affect Mood: + depressed mood Thought Process: goal directed thought process Thought Content: reality based without delusions Suicidal Thoughts: denies suicidal thoughts Homicidal Thoughts: denies homicidal thoughts Hallucinations: no auditory hallucinations and no visual hallucinations Cognition: + recent memory not intact and + remote memory not intact Estimated Intelligence: consistent with education level Insight: + fair insight Judgement: + fair judgement Vital Signs (Past 24 Hours): Last Vital Signs Temp 36.6 C 07/04/21 07:11 Pulse 95 H 07/04/21 07:11 Resp 18 07/04/21 07:11 BP 150/96 H 07/04/21 07:11 Pulse Ox 96 07/04/21 07:11 Review of Systems All systems reviewed & are unremarkable except as noted in HPI & below Results & Data (PSY) Medications Administered Atorvastatin Calcium (Atorvastatin 40 Mg Tab) 40 mg PO DAILY RENETTA Stop: 08/03/21 08:59 Last Admin: 07/04/21 10:18 Dose: 40 mg Documented by: [id number] Buspirone HCl (Buspirone 5 Mg Tab) 5 mg PO BID RENETTA Stop: 08/03/21 08:59 Last Admin: 07/04/21 10:18 Dose: 5 mg Documented by: [id number] Enoxaparin Sodium (Enoxaparin Inj 40 Mg/0.4 Ml Syr) 40 mg SQ QAM RENETTA Stop: 08/03/21 08:59 Last Admin: 07/04/21 10:19 Dose: Not Given Documented by: [id number] Sodium Chloride (Nss 1000ml) 1,000 mls @ 75 mls/hr IV .[id number] STA Stop: 07/04/21 12:53 Last Admin: 07/04/21 02:18 Dose: 75 mls/hr Documented by: [id number] Multivitamins/Minerals (Cerovite Adv Formula Tab) 1 tab PO QAM RENETTA Stop: 08/03/21 08:59 Last Admin: 07/04/21 10:18 Dose: 1 tab Documented by: [id number] Phenytoin Sodium (Phenytoin Sodium Er 100 Mg Cap) 100 mg PO TID RENETTA Stop: 08/03/21 08:59 Last Admin: 07/04/21 10:19 Dose: 100 mg Documented by: [id number] Senna/Docusate Sodium (Docusate Sodium/Senna 50/8.6mg Tab) 1 tab PO QAM RENETTA Stop: 08/03/21 02:39 Last Admin: 07/04/21 10:18 Dose: 1 tab Documented by: [id number] Admin: 07/04/21 05:28 Dose: 1 tab Documented by: [id number] Coding Level of Care Code 93564 Inpt Consult Level 2 Diagnoses Major depression F32.9 Anxiety F41.9 Neurocognitive disorder R41.9 Time Spent (min) 40
--- NOTE | 2021-07-04 15:21 | Hospitalist Progress Note ---
Date of Service July 04, 2021 Assessment & Plan (1) Neurocognitive disorder: (2) Anxiety: (3) Major depression: (4) Constipation: (5) Abdominal pain: (6) Epilepsy: Plan: This is a 70 yo man with history of epilepsy, HLD, anemia, dementia, depression and anxiety presenting with abdominal pain and worsening mood symptoms. Abdominal pain Constipation Ct abd/pelvis with moderate constipation. No bowel obstruction is seen Given senekot, miralax. No bowel movement yet. Continue bowel regimen CT scan with question of gastritis but does not correlate clinically- no epigastric or upper abd pain, nausea or melena Worsening neurocognitive disorder Depression Anxiety Concern for forgetfulness, sister/POA no longer feels patient living alone is safe, requesting placement CT head without acute changes, afebrile, no signs/sx of infection or acute electrolyte abn (chronic hyponatremia ~130) Evaluated by psychiatry, who question possibility of Parkinson's disease given his right hand tremor, constipation and masked facies - could pursue with neuro as OP Will make following medication changes recommended by psych: * Start sertraline 25 mg qd for depression. After 7 days could be increased to 50mg qd if he is tolerating it well * Consider stopping trazodone and starting mirtazapine 15mg qhs for insomnia * Would stop Buspar as he finds this unhelpful. 5mg BID to 5 mg qd for 2 days then stop Consider referrals for memory loss/dementia support groups or PT/OT to allow him to find ways to maintain some mobility and independence in the midst of his memory loss Epilepsy Continue Dilantin TID DVT Ppx: SQ Lovenox Code status: FULL PCP: Ron Dispo: Admitted to med/surg. CM assisting for placement at personal care facility Patient seen in collaboration with Dr. Hahn. Please see addendum. Admission and Anticipated Discharge Date Admission Date: July 03, 2021 Supervising Physician Co-Signing Physician Notes 70 yo man with history of epilepsy, HLD, anemia, dementia, depression and anxiety presented 07/04 to our ED with abdominal pain and worsening mood symptoms. Being managed for constipation with bowel regimen. Psychiatry on board for his worsening neurocognitive disorder and had made some medication changes. Continue to monitor. Will likely need placement. On exam: Patient AOx3, PTT, on room air, anxious looking, no BLE edema, heart lungs and abdomen examination WNL. I have seen and examined the patient and have discussed the case with the provider above. I agree with the assessment and plan as stated. Subjective Patient seen and examined in 300-.1 Sister/POA at bedside. Patient admitted due to abdominal pain as well as increased concern for forgetfulness and concern for patient's safety living alone. Sister states patient has been more forgetful with taking medications. Patient states he feels more depressed. Decreased appetite, sleeping more, slower cognition. Is A&Ox3. Continues to have lower abdominal discomfort. No bowel movement yet. No F/C, chest pain, SOB, dysuria or diarrhea. Sister feels patient would benefit from placement. Review of Systems Review of Systems: At least ten systems reviewed and negative except as noted in the HPI. Physical Exam Physical Exam: Gen: WD/WN, NAD, sitting in bed, appears comfortable, A&Ox3 HEENT: Normocephalic, atraumatic, conjunctivae moist, sclerae anicteric, mucous membranes moist Lung: Clear to Auscultation bilaterally, no wheezes/rales/rhonchi Heart: Regular rate, regular rhythm, no murmurs, rubs, or gallops Abdomen: Soft, lower abdominal pain to palpation, no guarding, ND +BS x 4 Extremities: no edema Skin: Warm, no rash Results & Data Results & Data ([facility]) Vital Signs (Past 12 Hours) Vital Signs Temp Pulse Resp BP Pulse Ox 07/04/21 14:45 36.5 C 71 16 157/86 H 93 07/04/21 07:11 36.6 C 95 H 18 150/96 H 96 Laboratory Results Short CBC 07/03/21 07/04/21 Range/Units 17:55 07:02 WBC 5.81 4.57 L (4.8-10.8) K/uL Hgb 13.7 L 13.8 L (14.0-18.0) g/dL Hct 37.8 L 38.1 L (42-52) % Plt Count 198 207 (130-400) K/uL BMP 07/03/21 07/04/21 18:00 07:02 Sodium 133 L 131 L Potassium 4.4 3.9 Chloride 101 99 Carbon Dioxide 27 24 BUN 21 H 15 Creatinine 0.78 0.59 L Glucose 165 H 89 Calcium 9.1 8.6 Cardiac Enzymes 07/03/21 Range/Units 18:00 Troponin I < 0.015 (0-0.045) ng/ml Liver Function 07/03/21 Range/Units 18:00 Total Bilirubin 0.2 (0.2-1) mg/dl AST 12 L (15-37) U/L ALT 27 (12-78) U/L Alkaline Phosphatase 77 (45-117) U/L Albumin 3.6 (3.4-5.0) gm/dl Urine 07/03/21 Range/Units 20:25 Urine Color Yellow Urine Appearance Clear (Clear) Urine pH 6.5 (4.5-7.5) Ur Specific [place] 1.023 (1.000-1.030) Urine Protein Negative (Negative) Urine Glucose (UA) Negative (Negative) Diagnostic Findings Chest X-Ray 07/03/21 17:50 XR chest 1V portable HISTORY: weakness COMPARISON: Chest and right rib series 10/22/2019. FINDINGS: The lungs are clear. The heart is normal in size. No pleural effusions. No pneumothorax. Old, healed left-sided rib fractures. IMPRESSION: No acute process. ACT 112: Negative or not required by law. Electronically signed by: Antione Castaneda M.D. 07/03/2021 6:[address] 07/03/21 20:[address] DOSE: 537.48 mGy.cm HISTORY: Confusion. TECHNIQUE: Multiaxial CT images of the head were performed without the use of intravenous contrast. Automated exposure control was utilized for this study. A dose lowering technique was utilized adhering to the principles of ALARA. Comparison: Head CT 08/31/2019. Findings: The paranasal sinuses and mastoid air cells are clear. The calvarium and skull base are intact. The ventricles and sulci are within normal limits. There is no mass, hematoma, midline shift, or acute infarct. Impression: No acute intracranial abnormality. ACT 112: Negative or not required by law. Electronically signed by: Antione Castaneda M.D. 07/03/2021 8:52 PM Abdomen/Pelvis CT 07/04/21 00:30 CT SCAN OF THE ABDOMEN AND PELVIS WITH IV CONTRAST CLINICAL HISTORY: Generalized abdominal pain. COMPARISON STUDY: No priors. TECHNIQUE: Following the IV administration of 94 cc of Optiray 320, CT scan of the abdomen and pelvis is performed from the lung bases to the proximal femora. Images are reviewed in the axial, sagittal, and coronal planes. IV contrast was administered without complication. A dose lowering technique was utilized adhering to the principles of ALARA. Examination is degraded by motion artifact. CT DOSE: 254.93 mGy.cm FINDINGS: Lung bases: The heart is normal in size and without pericardial effusion. The lung bases are clear. Liver: The contrast-enhanced liver is normal in size, contour, and attenuation. There is no intrahepatic biliary ductal dilatation. The hepatic veins and portal veins are patent. A 1.4 cm cyst is noted in the left lobe. Gallbladder: Unremarkable. Spleen: Normal in size and attenuation. Pancreas: Unremarkable. Adrenal glands: There is nonspecific thickening of the adrenal glands. Kidneys: The contrast enhanced kidneys are normal in size and without hydronephrosis. The kidneys enhance symmetrically. Abdominal vasculature: The abdominal aorta is normal in course and caliber notin g advanced atherosclerotic calcification. Bowel: The gastric mucosa appears thickened and hyperemic. There is mild to moderate colonic fecal retention. No bowel obstruction is seen. The appendix is not visualized. Peritoneum: There is no intraperitoneal free air or abdominal ascites. Lymphadenopathy: None. Pelvic viscera: The prostate gland is markedly enlarged and heterogeneous noting median lobe hypertrophy. The bladder wall is thickened and trabeculated indicating chronic outlet obstruction. Skeletal structures: The skeletal structures are osteopenic. There is moderate lumbosacral spondylosis. No lytic or blastic lesions are seen. Soft tissues: The patient is cachectic. IMPRESSION: 1. Significantly motion compromised examination. 2. Question gastritis. Clinical correlation will be required. If warranted this could be further assessed with endoscopy. 3. Moderate constipation. No bowel obstruction is seen. 4. Marked prostatomegaly with evidence of chronic bladder outlet obstruction. 5. Additional findings as above. ACT 112: Negative or not required by law. Electronically signed by: Prashanth Jordan M.D. 07/04/2021 8:39 AM
[2021-07-04] MEDS ORDERED: LACTULOSE SYRUP 30 GM/45 ML UDP PO STA (20:04)
[2021-07-04] MEDS ORDERED: traZODone HCL 50 MG TAB PO SCH (21:00)
[2021-07-04] MEDS ORDERED: DOCUSATE SODIUM/SENNA 50/8.6MG TAB PO SCH (21:00)
[2021-07-04] MEDS: MIRTAZAPINE TAB 15 MG TAB PO SCH (21:22)
[2021-07-05] MEDS: busPIRone 5 MG TAB PO SCH (08:46)
[2021-07-05] MEDS: ATORVASTATIN 40 MG TAB PO SCH (08:46)
[2021-07-05] MEDS: DOCUSATE SODIUM/SENNA 50/8.6MG TAB PO SCH ×2 (08:47→20:10)
[2021-07-05] MEDS: ENOXAPARIN INJ 40 MG/0.4 ML SYR SQ SCH (08:47)
[2021-07-05] MEDS: PHENYTOIN SODIUM ER 100 MG CAP PO SCH ×3 (08:48→20:09)
[2021-07-05] MEDS: CEROVITE ADV FORMULA TAB PO SCH (08:48)
[2021-07-05] MEDS: SERTRALINE HCL 50 MG TABLET PO SCH (08:49)
[2021-07-05 11:13] LABS: Calcium 8.7 mg/dl (8.5-10.1); Est GFR (African American) 116.5 ml/min; Est GFR (Non-African American) 100.5 ml/min; Potassium 4.3 mmol/L (3.5-5.1)
--- NOTE | 2021-07-05 17:34 | Hospitalist Progress Note ---
Date of Service July 05, 2021 Assessment & Plan (1) Neurocognitive disorder: (2) Constipation: (3) Hyponatremia: Plan: 70 yo man with history of epilepsy, HLD, anemia, dementia, depression and anxiety presented 07/04 to our ED with abdominal pain and worsening mood symptoms. #. Hyponatremia Baseline sodium looks like around 130. Admitting sodium level 133, sodium dropped to 124 Patient did not complain of any headache or dizziness early in the morning. TSH WNL, sent urine osmolality, serum osmolality, urine sodium. Consulted nephrology, appreciate input Check BMP every 4 hours, on normal saline, follow-up results and manage a ppropriately. #. Abdominal pain #. Constipation Ct abd/pelvis with moderate constipation. No bowel obstruction is seen Given senekot, miralax. No bowel movement yet. Continue bowel regimen As needed MiraLAX not being used, will be daily scheduled. #. Worsening neurocognitive disorder #. Depression #. Anxiety Concern for forgetfulness, sister/POA no longer feels patient living alone is safe, requesting placement CT head without acute changes, afebrile, no signs/sx of infection or acute electrolyte abn (chronic hyponatremia ~130) Evaluated by psychiatry, who question possibility of Parkinson's disease given his right hand tremor, constipation and masked facies - could pursue with neuro as OP Following medication changes recommended by psych were carried out 07/04: Start sertraline 25 mg qd for depression. After 7 days could be increased to 50mg qd if he is tolerating it well Consider stopping trazodone and starting mirtazapine 15mg qhs for insomnia Would stop Buspar as he finds this unhelpful. 5mg BID to 5 mg qd for 2 days then stop Consider referrals for memory loss/dementia support groups or PT/OT to allow him to find ways to maintain some mobility and independence in the midst of his memory loss #. Epilepsy Continue Dilantin TID DVT Ppx: SQ Lovenox Code status: FULL PCP: Ron Dispo: Admitted to med/surg. CM assisting for placement at personal care facility Admission and Anticipated Discharge Date Admission Date: July 04, 2021 Subjective Patient was lying in bed, looking anxious, on room air. Patient denies any headache/fever/chills/other review of symptoms. Patient is eating okay. Patient not sure whether he has moved his bowels or not. Per RN, he has been incontinent of urine overnight but not to her in the morning. Patient has not moved bowel movement per RN. Physical Exam Physical Exam: GENERAL: Alert and oriented x3. Anxious looking, on RA. HEENT: No pallor, no icterus. Pupils equal, round and reactive to light. Oral mucosa moist. NECK: No JVD, no neck masses. HEART: S1 and S2 heard. Regular rate and rhythm. No murmur, no gallop. RESPIRATORY SYSTEM: Normal AP diameter. No accessory muscle use. No wheezing, no crackles. ABDOMEN: Soft, bowel sounds present, nontender, no distention. CENTRAL NERVOUS SYSTEM: No facial droop. Speech is clear. Obeys simple commands. Moves extremities. EXTREMITIES: No edema, no erythema seen. Results & Data Results & Data ([facility]) Vital Signs (Past 12 Hours) Vital Signs Temp Pulse Resp BP Pulse Ox 07/05/21 15:02 36.9 C 93 H 16 113/70 96 07/05/21 06:24 36.7 C 94 H 18 154/75 H 95
[2021-07-05] MEDS: POLYETHYLENE (MIRALAX) 17 GM PACK PO SCH (18:17)
[2021-07-05] MEDS: SODIUM CHLORIDE 0.9% 1000ML 1,000 ML IV SCH (18:17)
[2021-07-05 18:41] LABS: BUN Creatinine Ratio 17.1 (10-20); Calcium 8.2 mg/dl (8.5-10.1); Creatinine Clr Calc Pharmacy 72.6 ml/min; Est GFR (African American) 110.8 ml/min; Est GFR (Non-African American) 95.6 ml/min
[2021-07-05] MEDS: MIRTAZAPINE TAB 15 MG TAB PO SCH (20:10)
[2021-07-05 22:33] LABS: BUN Creatinine Ratio 19.6 (10-20); Calcium 8.5 mg/dl (8.5-10.1); Creatinine Clr Calc Pharmacy 79.4 ml/min; Est GFR (Non-African American) 99.2 ml/min; Potassium 4.4 mmol/L (3.5-5.1)
[2021-07-06] MEDS: MELATONIN 3 MG TAB PO PRN ×2 (00:05→20:35)
[2021-07-06 01:46] LABS: BUN Creatinine Ratio 19.5 (10-20); Calcium 7.9 mg/dl (8.5-10.1); Creatinine Clr Calc Pharmacy 74.8 ml/min; Est GFR (African American) 112.1 ml/min; Est GFR (Non-African American) 96.8 ml/min; Potassium 4.1 mmol/L (3.5-5.1)
[2021-07-06] MEDS: SODIUM CHLORIDE 0.9% 1000ML 1,000 ML IV SCH (04:50)
[2021-07-06] MEDS: ACETAMINOPHEN 325 MG TAB PO PRN ×2 (04:50→20:36)
[2021-07-06 05:42] LABS: Hematocrit (blood only) 35.4 % (42-52); Mean Corpuscular Hemoglobin 31.9 pg (25-34); Mean Corpuscular Hgb Conc 36.7 g/dL (32-36); Mean Corpuscular Volume 86.8 fL (80-100); Mean Platelet Volume 8.7 fL (7.4-10.4); Platelet Count 187 K/uL (130-400); RDW Coefficient of Variation 12.5 % (11.5-14.5); RDW Standard Deviation 39.7 fL (36.4-46.3); Red Blood Count 4.08 M/uL (4.7-6.1); White Blood Count 6.27 K/uL (4.8-10.8)
[2021-07-06 06:11] LABS: BUN Creatinine Ratio 14.4 (10-20); Calcium 8.1 mg/dl (8.5-10.1); Creatinine Clr Calc Pharmacy 69.7 ml/min; Est GFR (African American) 108.9 ml/min; Magnesium 1.9 mg/dl (1.8-2.4); Phosphorus 2.5 mg/dl (2.5-4.9); Potassium 3.8 mmol/L (3.5-5.1)
--- NOTE | 2021-07-06 07:22 | Nephrology Consultation ---
Date of Consultation July 06, 2021 Assessment & Plan (1) Hyponatremia: Hypoosmolar hyponaternia, euvolumic - Multiple causes There has been drop in his sodium after the start of Sertaline which is known to cause SIADH and Mirtazapine which can cause HYponatremia.Psychiatric patinets can have central defect in thirst regulation causing polydipsia,he also has h/o alcohol intake.HIs U Osm is also low which point towards low solute intake or excess water load. Recs- - Stop Sertaline and Mirtazepine(please take the psychiatry into confidence before doing this) - start on urea 15 mg BId - Nurition consult for high protein diet to increase free water clearance. - fluid restrict to 1.5 lit - Na q6 - strict input/output. (2) Neurocognitive disorder: As per primary History of Present Illness Reason for Consultation: Hyponatremia Attending Physician: Bonifacio Hahn MD History of Present Illness 70 yo man with history of epilepsy, HLD, anemia, dementia, depression and anxiety presented 07/04 t with abdominal pain and worsening mood symptoms. Being managed for constipation with bowel regimen. Psychiatry on board for his worsening neurocognitive disorder and had made some medication changes, He was started on Sertaline and Mirtazepine and buspirone was decreased. He has chronis mild hyponatremia @ early 130's which was decreased to 124 on 07/05, He was started on 80 mls/hr of NS. His sodium has remained between 122- 124 in the last 24 hours, U osm was low at 257 with Kaylen of 47, POsm was 252 .UOP has been @ 1lit (Not sure how accurate this is)Nephrology was called for Hyponatremia management, Patinet remains confused Difficult to accurately comment about his water intake. Allergies Allergy/AdvReac Type Severity Reaction Status Date / Time No Known Allergies Allergy Verified 07/03/21 19:55 Home Medications Medication Instructions Recorded Confirmed Type multivitamin with minerals 1 tab PO QAM 06/09/19 07/03/21 History phenytoin sodium extended 100 mg 100 mg PO TID 06/09/19 07/03/21 History capsule (Dilantin Extended) ascorbic acid (vitamin C) 1,000 mg 1,000 mg PO QAM 01/03/20 07/03/21 History tablet,extended release atorvastatin 40 mg tablet 40 mg PO DAILY 07/03/21 07/03/21 History buspirone 5 mg tablet 5 mg PO BID 07/03/21 07/03/21 History cholecalciferol (vitamin D3) 125 125 mcg PO DAILY 07/03/21 07/03/21 History mcg (5,000 unit) tablet (Vitamin D3) trazodone 150 mg tablet 150 mg PO HS 07/03/21 07/03/21 History Patient History Medical History (Updated 07/04/21 @ 15:39 by Laura Caballero PA-C) Ankle fracture, left Anxiety Behavioral change Displaced fracture of lateral malleolus of left fibula, sequela Epilepsy Major depression Seizure Family History Mother Anxiety Other No significant family history Social History Smoking Status: Never smoker Hx Alcohol Use: Yes Alcohol type: hard liquor Hx Substance Use: No Preferred Language: Iranian Communication Ability: Effective 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 Physical Exam Physical Exam: Vitals signs as noted above General Appearance: Comfortable, no apparent distress Head: normocephalic, Atraumatic Eyes: normal inspection, EOMI Neck: supple, Trachea midline Respiratory/Chest: Decreased breath sounds, B/L crackles Cardiovascular: S1, S2, + murmur Abdomen/GI:Soft, Non tender, Bowel sounds present Extremities/Musculoskeletal:normal inspection, no edema Neurologic/Psych:AAOX3, grossly no focal neurological deficits Skin: normal color, warm Results & Data ([facility]) Laboratory Results 07/06/21 05:28
[2021-07-06] MEDS: ENOXAPARIN INJ 40 MG/0.4 ML SYR SQ SCH (08:43)
[2021-07-06] MEDS: DOCUSATE SODIUM/SENNA 50/8.6MG TAB PO SCH ×2 (08:43→20:35)
[2021-07-06] MEDS: ATORVASTATIN 40 MG TAB PO SCH (08:43)
[2021-07-06] MEDS: busPIRone 5 MG TAB PO SCH (08:43)
[2021-07-06] MEDS: PHENYTOIN SODIUM ER 100 MG CAP PO SCH ×3 (08:44→20:35)
[2021-07-06] MEDS: POLYETHYLENE (MIRALAX) 17 GM PACK PO SCH (08:45)
[2021-07-06] MEDS: CEROVITE ADV FORMULA TAB PO SCH (08:45)
[2021-07-06] MEDS: SERTRALINE HCL 50 MG TABLET PO SCH (08:45)
[2021-07-06] MEDS: UREA (UREA-NA) 15 GM PACK PO SCH ×2 (10:43→20:35)
[2021-07-06] MEDS: MAGNESIUM OXIDE 400 MG TAB PO SCH ×2 (11:24→20:35)
[2021-07-06] MEDS ORDERED: ZOLPIDEM TARTRATE 5 MG TAB PO PRN (12:29)
--- NOTE | 2021-07-06 16:15 | Communication Note ---
Date of Service: July 06, [address] Hahn to review case as call coverage for psychiatry consult and nephrology expressed concerns about antidepressants given worsening hyp onatremia. Patient was started on Zoloft and Remeron (the latter in place of trazodone 150 mg that was no longer working for insomnia) and sodium trending down. Reviewed that SSRI more likely than Remeron to contribute. Dr. Hahn opted to discontinue both and requested any additional recs to address anxiety and insomnia. Avoid anticholinergics for sleep and trazodone can also contribute to hypo natremia so if desires sleep agent whild hospitalized would suggest Ambien 5 mg qhs prn. Monotherapy with Remeron could be retried when lytes more stable.
--- NOTE | 2021-07-06 18:52 | Hospitalist Progress Note ---
Date of Service July 06, 2021 Assessment & Plan (1) Neurocognitive disorder: (2) Constipation: (3) Hyponatremia: Plan: 70 yo man with history of epilepsy, HLD, anemia, dementia, depression and anxiety presented 07/04 to our ED with abdominal pain and worsening mood symptoms. #. Hyponatremia Baseline sodium looks like around 130. Admitting sodium level 133, sodium dropped to 124 Patient did not complain of any headache or dizziness early in the morning. TSH WNL, sent urine osmolality, serum osmolality, urine sodium. Consulted nephrology: Mirtazapine and sertraline induced SIADH, urea 15 mg twice daily, increase solute intake, fluid restriction to 1.5 L, sodium every 6 hourly. Strict input and output Follow-up sodium levels, discontinuing sertraline and mirtazapine, will put him on Ambien for helping him with sleep per psychiatric recommendation. #. Abdominal pain #. Constipation Ct abd/pelvis with moderate constipation. No bowel obstruction is seen Given senekot, miralax. Continue bowel regimen #. Worsening neurocognitive disorder #. Depression #. Anxiety Concern for forgetfulness, sister/POA no longer feels patient living alone is safe, requesting placement CT head without acute changes, afebrile, no signs/sx of infection or acute electrolyte abn (chronic hyponatremia ~130) Evaluated by psychiatry, who question possibility of Parkinson's disease given his right hand tremor, constipation and masked facies - could pursue with neuro as OP 07/04, patient started on sertraline and Remeron, due to sodium trending down, stopped with psychiatric recommendation, per psychiatry can give a trial of mirtazapine after sodium levels off, for now Ambien nightly. Consider referrals for memory loss/dementia support groups or PT/OT to allow him to find ways to maintain some mobility and independence in the midst of his memory loss #. Epilepsy Continue Dilantin TID DVT Ppx: SQ Lovenox Code status: FULL PCP: Ron Dispo: Admitted to med/surg. CM assisting for placement at personal care facility Admission and Anticipated Discharge Date Admission Date: July 04, 2021 Subjective Patient was lying in bed, looking anxious, on room air. Patient denies any headache/fever/chills/other review of symptoms. Patient is eating okay. Patient not sure whether he has moved his bowels or not. Per patient, he has been incontinent of urine overnight. Physical Exam Physical Exam: GENERAL: Alert and oriented x3. Anxious looking, on RA. HEENT: No pallor, no icterus. Pupils equal, round and reactive to light. Oral mucosa moist. NECK: No JVD, no neck masses. HEART: S1 and S2 heard. Regular rate and rhythm. No murmur, no gallop. RESPIRATORY SYSTEM: Normal AP diameter. No accessory muscle use. No wheezing, no crackles. ABDOMEN: Soft, bowel sounds present, nontender, no distention. CENTRAL NERVOUS SYSTEM: No facial droop. Speech is clear. Obeys simple commands. Moves extremities. EXTREMITIES: No edema, no erythema seen. Results & Data Results & Data ([facility]) Vital Signs (Past 12 Hours) Vital Signs Temp Pulse Resp BP Pulse Ox 07/06/21 15:17 37.0 C 98 H 18 156/96 H 94 07/06/21 07:34 36.4 C L 70 16 120/66 95
[2021-07-07 04:31] LABS: BUN Creatinine Ratio 39.6 (10-20); Calcium 8.5 mg/dl (8.5-10.1); Est GFR (African American) 116.5 ml/min; Est GFR (Non-African American) 100.5 ml/min; Potassium 3.9 mmol/L (3.5-5.1)
[2021-07-07] MEDS ORDERED: POTASSIUM CHLORIDE CRTAB 20 MEQ TABCR PO ONE (08:14)
[2021-07-07] MEDS ORDERED: FUROSEMIDE 20 MG in SYRINGE 0 ML IV ONE (08:30)
[2021-07-07] MEDS: ATORVASTATIN 40 MG TAB PO SCH (09:18)
[2021-07-07] MEDS: ENOXAPARIN INJ 40 MG/0.4 ML SYR SQ SCH (09:18)
[2021-07-07] MEDS: PHENYTOIN SODIUM ER 100 MG CAP PO SCH ×3 (09:19→21:55)
[2021-07-07] MEDS: MAGNESIUM OXIDE 400 MG TAB PO SCH ×2 (09:19→21:54)
[2021-07-07] MEDS: CEROVITE ADV FORMULA TAB PO SCH (09:19)
[2021-07-07] MEDS: UREA (UREA-NA) 15 GM PACK PO SCH ×2 (09:20→21:53)
[2021-07-07] MEDS: POLYETHYLENE (MIRALAX) 17 GM PACK PO SCH (09:20)
[2021-07-07] MEDS: DOCUSATE SODIUM/SENNA 50/8.6MG TAB PO SCH ×2 (09:48→21:55)
--- NOTE | 2021-07-07 11:27 | Hospitalist Progress Note ---
Date of Service July 07, 2021 Assessment & Plan (1) Neurocognitive disorder: (2) Constipation: (3) Hyponatremia: Plan: 70 yo man with history of epilepsy, HLD, anemia, dementia, depression and anxiety presented 07/04 to our ED with abdominal pain and worsening mood symptoms. Hyponatremia Per EPIC pt had normal serum sodium November 2020 Admitting sodium level 133, sodium dropped to 124 No SANTIAGO, Dizziness, baseline mental status although pt currently fixated on incontinence Nephrology on board - hypoosmolar euvolemic Likely Mirtazapine and sertraline induced SIADH, urea increased to 30gm twice daily, increase solute intake, fluid restriction to 1.5 L, sodium every 6 hourly. Strict input and output Furosemide 20mg IV given x 1 this a.m. Follow-up sodium levels, discontinuing sertraline and mirtazapine, will put him on Ambien for helping him with sleep per psychiatric recommendation. Abdominal pain/Constipation Ct abd/pelvis with moderate constipation. No bowel obstruction is seen Given senekot, miralax. Continue bowel regimen Worsening neurocognitive disorder Depression Anxiety Concern for forgetfulness, sister/POA no longer feels patient living alone is safe, requesting placement CT head without acute changes, afebrile, no signs/sx of infection or acute electrolyte abn (chronic hyponatremia ~130) Evaluated by psychiatry, who question possibility of Parkinson's disease given his right hand tremor, constipation and masked facies - could pursue with neuro as OP 07/04, patient started on sertraline and Remeron, due to sodium trending down, stopped with psychiatric recommendation, per psychiatry can give a trial of mirtazapine after sodium levels off, for now Ambien nightly. Consider referrals for memory loss/dementia support groups or PT/OT to allow him to find ways to maintain some mobility and independence in the midst of his memory loss Epilepsy Continue Dilantin TID Obtain urinalysis today given pt concern for freq incontinence r/o UTI DVT Ppx: SQ Lovenox Code status: FULL PCP: Ron Dispo: Admitted to med/surg. CM assisting for placement at personal care facilit y, currently not stable for discharge given serum sodium level Admission and Anticipated Discharge Date Admission Date: July 04, 2021 Supervising Physician Co-Signing Physician Notes 70 yo man with history of epilepsy, HLD, anemia, dementia, depression and anxiety presented 07/04 to our ED with abdominal pain and worsening mood symptoms. Being managed for constipation with bowel regimen. Psychiatry on board for his worsening neurocognitive disorder and had made some medication changes. Because of acute on chronic hyponatremia, recently started sertraline and mirtazapine were stopped. Per psychiatry, will give a trial of mirtazapine once the sodium level is towards his baseline. Continue to monitor. Will likely need placement. On exam: Patient AOx3, PTT, on room air, anxious looking, no BLE edema, heart lungs and abdomen examination WNL. I have seen and examined the patient and have discussed the case with the provider above. I agree with the assessment and plan as stated. Subjective Patient was seen and examined in 305-1. Follow up hyponatremia & neurocognitive disorder. Pt states he is wet and has had freq episodes of incontinence over night. Nurse at bedside states he has been fixated on incontinence per report, but hasn't actually been wet. When asked how he is doing he says, "not good." He denies pain, cp, fever, chills, sweats, n/v. Overall poor appetite, "I'm just not hungry." Review of Systems Review of Systems: All systems reviewed & are unremarkable except as noted in HPI & below Physical Exam Physical Exam: Gen: WD/WN, elderly, M, NAD, A&O x3, disheveled look, apprehensive HEENT: Normocephalic, atraumatic, conjunctivae moist, sclerae anicteric, mucous membranes moist. Lung: Clear to Auscultation bilaterally, no wheezes/rales/rhonchi Heart: Regular rate, regular rhythm, no murmurs, rubs, or gallops Abdomen: Soft, NT, ND +BS x 4 Extremities: No edema Skin: Warm, no rash, negative turgor. Results & Data Results & Data ([facility]) Vital Signs (Past 12 Hours) Vital Signs Temp Pulse Resp BP Pulse Ox 07/07/21 07:53 36.6 C 104 H 16 157/98 H 96 Laboratory Results BMP 07/06/21 07/06/21 07/07/21 15:38 21:21 03:58 Sodium 122 L 124 L 124 L Potassium 3.9 Chloride 92 L Carbon Dioxide 25 BUN 25 H D Creatinine 0.62 Glucose 93 Calcium 8.5 Medications Administered Current Inpatient Medications Acetaminophen (Acetaminophen 325 Mg Tab) 650 mg PO Q4H PRN PRN Reason: Pain or Fever Stop: 08/03/21 01:54 Last Admin: 07/06/21 20:36 Dose: 650 mg Documented by: Atorvastatin Calcium (Atorvastatin 40 Mg Tab) 40 mg PO DAILY RENETTA Stop: 08/03/21 08:59 Last Admin: 07/07/21 09:18 Dose: 40 mg Documented by: Enoxaparin Sodium (Enoxaparin Inj 40 Mg/0.4 Ml Syr) 40 mg SQ QAM RENETTA Stop: 08/03/21 08:59 Last Admin: 07/07/21 09:18 Dose: 40 mg Documented by: Promethazine HCl 6.25 mg/ (Sodium Chloride) 50.25 mls @ 201 mls/hr IV Q6H PRN PRN Reason: Nausea And Vomiting Stop: 08/03/21 01:54 Magnesium Oxide (Magnesium Oxide 400 Mg Tab) 400 mg PO BID RENETTA Stop: 07/07/21 21:01 Last Admin: 07/07/21 09:19 Dose: 400 mg Documented by: Melatonin (Melatonin 3 Mg Tab) 3 mg PO HS PRN PRN Reason: Sleep Stop: 08/03/21 06:29 Last Admin: 07/06/21 20:35 Dose: 3 mg Documented by: Mirtazapine (Mirtazapine Tab 15 Mg Tab) 15 mg PO HS RENETTA Stop: 08/03/21 20:59 Last Admin: 07/05/21 20:10 Dose: 15 mg Documented by: Multivitamins/Minerals (Cerovite Adv Formula Tab) 1 tab PO QAM RENETTA Stop: 08/03/21 08:59 Last Admin: 07/07/21 09:19 Dose: 1 tab Documented by: Phenytoin Sodium (Phenytoin Sodium Er 100 Mg Cap) 100 mg PO TID RENETTA Stop: 08/03/21 08:59 Last Admin: 07/07/21 09:19 Dose: 100 mg Documented by: Polyethylene Glycol (Polyethylene (Miralax) 17 Gm Pack) 17 gm PO DAILY [facility] Stop: 08/04/21 17:59 Last Admin: 07/07/21 09:20 Dose: 17 gm Documented by: Senna/Docusate Sodium (Docusate Sodium/Senna 50/8.6mg Tab) 1 tab PO BID RENETTA Stop: 08/03/21 20:14 Last Admin: 07/07/21 09:48 Dose: Not Given Documented by: Urea (Urea (Urea-Na) 15 Gm Pack) 30 gm PO BID RENETTA Stop: 08/06/21 08:59 Last Admin: 07/07/21 09:20 Dose: 30 gm Documented by: Zolpidem Tartrate (Zolpidem Tartrate 5 Mg Tab) 5 mg PO HS PRN PRN Reason: Sleep Stop: 08/05/21 12:28
[2021-07-07 12:44] LABS: BUN Creatinine Ratio 49.5 (10-20); Calcium 8.6 mg/dl (8.5-10.1); Creatinine Clr Calc Pharmacy 72.6 ml/min; Est GFR (African American) 110.8 ml/min; Est GFR (Non-African American) 95.6 ml/min; Potassium 4.2 mmol/L (3.5-5.1)
[2021-07-07] MEDS ORDERED: FUROSEMIDE 10 MG in SYRINGE 0 ML IV ONE (14:00)
[2021-07-07 15:06] LABS: Appearance Urine Clear (Clear); Bacteria Urine Automated Negative (Negative); Bilirubin Urine Negative (Negative); Blood Urine 1+ (Negative); Color Urine Yellow; Glucose Urine UA Negative (Negative); Ketones Urine Negative (Negative); Leukocyte Esterase Urine Negative (Negative); Nitrite Urine Negative (Negative); Protein Urine Negative (Negative); RBC Urine Automated 0-4 /hpf (0-4); Specific Gravity Urine 1.014 (1.000-1.030); Urobilinogen Urine Negative (Negative)
[2021-07-07 15:25] LABS: Cast Urine Automated 0 /lpf (0-5); Epithelial Cell Urine Auto 0-5 /lpf (0-5)
[2021-07-07] MEDS ORDERED: COUGH DROP (SUGAR FREE) LOZ 24 LOZ/1 BOX BUCCAL ONE (16:25)
--- NOTE | 2021-07-07 17:55 | Nephrology Progress Note ---
Date of Service July 07, 2021 Assessment & Plan (1) Hyponatremia: Plan: Hypoosmolar hyponaternia, euvolumic - Multiple causes There has been drop in his sodium after the start of Sertaline which is known to cause SIADH and Mirtazapine which can cause HYponatremia.Psychiatric patinets can have central defect in thirst regulation causing polydipsia,he also has h/o alcohol intake and nsaid use. HIs U Osm could be c/w low solute intake or excess water load. goal sNa is 130 tomorrow AM Recs- - cont to hold Sertaline and Mirtazepine(please take the psychiatry into confidence before doing this) - increased urea 30 mg BId -cont bid salt tabs -gave lasix 20 mg IV x 1 this am and 10 mg IV this PM; no standing dose - continue to recommend Nurition consult for high protein diet to increase free water clearance. - fluid restrict to 1.5 lit - bmp 1800; bmp I ordered for noon unchanged - strict input/output. (2) Neurocognitive disorder: Plan: As per primary Admission and Anticipated Discharge Date Admission Date: July 04, 2021 Subjective no acute interval clinical events; sNa remained at 124 this am. pt c/o dry mouth, some abd pain, no n/v; notes urinary urgency, concerned about fecal incontinence; sister at bedside Review of Systems Review of Systems: All systems reviewed & are unremarkable except as noted in Subjective Physical Exam Constitutional: well developed and well nourished; no acute distress Eyes: EOM intact bilaterally ENMT: Ears: no external ear abnormality Nose: no external nose abnormality Mouth: + dry oral mucous membranes Neck: no nuchal rigidity Respiratory: normal respiratory effort Auscultation: + diminished lung sounds Cardiovascular: Rate/Rhythm: regular rate and regular rhythm Heart Sounds: normal S1 and normal S2 Extremities: no edema Gastrointestinal (Abdomen): Inspection/Auscultation: normal bowel sounds Percussion/Palpation: abdomen soft; abdomen nontender Musculoskeletal: Extremities: strength 5/5 throughout Skin: no rashes, warm and dry Neurologic: bach, fluent speech, no tremor Psychiatric: Orientation: alert and oriented to person Insight: + limited insight Judgement: + limited judgement Results & Data ([facility]) Vital Signs (Past 12 Hours) Vital Signs Temp Pulse Resp BP BP Pulse Ox 07/07/21 14:52 36.6 C 94 H 18 100/65 97 10/25/21 07:53 36.6 C 104 H 16 157/98 H 96 Laboratory Results 07/06/21 05:28 07/07/21 12:14
[2021-07-07 18:44] LABS: BUN Creatinine Ratio 49.2 (10-20); Creatinine Clr Calc Pharmacy 65.2 ml/min; Est GFR (Non-African American) 91.5 ml/min; Potassium 3.9 mmol/L (3.5-5.1)
[2021-07-08 07:07] LABS: Calcium 8.9 mg/dl (8.5-10.1); Creatinine Clr Calc Pharmacy 78.2 ml/min; Est GFR (African American) 114.2 ml/min; Est GFR (Non-African American) 98.6 ml/min; Potassium 3.5 mmol/L (3.5-5.1)
[2021-07-08] MEDS ORDERED: POTASSIUM CHLORIDE CRTAB 20 MEQ TABCR PO SCH (08:00)
[2021-07-08] MEDS: ENOXAPARIN INJ 40 MG/0.4 ML SYR SQ SCH (08:43)
[2021-07-08] MEDS: PHENYTOIN SODIUM ER 100 MG CAP PO SCH ×3 (08:43→20:06)
[2021-07-08] MEDS: ATORVASTATIN 40 MG TAB PO SCH (08:43)
[2021-07-08] MEDS: CEROVITE ADV FORMULA TAB PO SCH (08:43)
[2021-07-08] MEDS: UREA (UREA-NA) 15 GM PACK PO SCH (08:44)
[2021-07-08] MEDS: POLYETHYLENE (MIRALAX) 17 GM PACK PO SCH (08:45)
[2021-07-08] MEDS: POTASSIUM CHLORIDE CRTAB 20 MEQ TABCR PO SCH ×2 (08:53→12:32)
[2021-07-08] MEDS: DOCUSATE SODIUM/SENNA 50/8.6MG TAB PO SCH ×2 (08:53→20:06)
[2021-07-08] MEDS: FUROSEMIDE INJ 20 MG/2 ML VIAL IV SCH ×2 (08:54→12:32)
--- NOTE | 2021-07-08 12:30 | Urology Consultation ---
Date of Consultation July 08, 2021 Assessment & Plan (1) Urinary retention: 70-year-old male admitted to the hospital with abdominal pain likely related to constipation. Developed urinary retention on 07/08/2021 and nursing was unable to place Blackmon catheter. Procedure: Patient was prepped and draped in sterile fashion. 16 Bulgarian silicone catheter was placed without difficulty. There was return of clear yellow urine. The balloon was inflated with 10 cc of sterile water and set to gravity drainage Plan: 1. 1.5 L of urine had drained prior to me leaving the room. Recommend leaving Blackmon catheter for minimum of 7 days. If patient still hospitalized, can consider void trial in-house. If patient discharged home, urology can perform void trial in clinic. 2. Recommend checking urine culture to rule out infection as cause of retention 3. Recommend aggressive bowel regimen as this is likely contributing to his retention. 4. CT scan consistent with enlarged prostate and likely chronic obstruction. Patient will require outpatient urology evaluation and may benefit from initiation of medications or possibly a bladder outlet procedure in the future. 5. Due to large volume of urine, would monitor patient for postobstructive diuresis. This is typically seen when patient makes more than 200 cc of urine per hour. If able to drink to thirst, can replace fluids with drinking although patient is on fluid restriction with nephrology so should coordinate with them. If needs fluid replacement, defer to nephrology. Urology to sign off. Please call us with any questions or concerns. History of Present Illness Reason for Consultation: Urinary retention Attending Physician: Bonifacio Hahn MD History of Present Illness 70-year-old male with no past medical history who developed urinary retention while admitted to the hospital. He was admitted to the medicine service on 07/03/2021 for abdominal pain secondary to constipation. Medical history is significant for epilepsy chronic anemia, dementia, anxiety/mood disorder and hyperlipidemia. On presentation, labs were significant for hyponatremia for which nephrology is managing. He is currently on a fluid restriction. CT scan abdomen pelvis were performed which showed moderate constipation with no obstruction and an enlarged prostate with evidence of chronic bladder outlet obstruction. On 07/08/2021, patient was noted to have a bladder scan it was elevated and he was not voiding well. Nursing attempted to catheterize him with a straight cath and a coud tip catheter and were unsuccessful. Urology was consulted. Patient denies any history of voiding issues or seeing a urologist. Urinalysis was negative outside of 5-10 WBCs. Allergies Allergy/AdvReac Type Severity Reaction Status Date / Time No Known Allergies Allergy Verified 07/03/21 19:55 Home Medications Medication Instructions Recorded Confirmed Type multivitamin with minerals 1 tab PO QAM 06/09/19 07/03/21 History phenytoin sodium extended 100 mg 100 mg PO TID 06/09/19 07/03/21 History capsule (Dilantin Extended) ascorbic acid (vitamin C) 1,000 mg 1,000 mg PO QAM 01/03/20 07/03/21 History tablet,extended release atorvastatin 40 mg tablet 40 mg PO DAILY 07/03/21 07/03/21 History buspirone 5 mg tablet 5 mg PO BID 07/03/21 07/03/21 History cholecalciferol (vitamin D3) 125 125 mcg PO DAILY 07/03/21 07/03/21 History mcg (5,000 unit) tablet (Vitamin D3) trazodone 150 mg tablet 150 mg PO HS 07/03/21 07/03/21 History Patient History Medical History Ankle fracture, left Anxiety Behavioral change Displaced fracture of lateral malleolus of left fibula, sequela Epilepsy Major depression Seizure Family History Mother Anxiety Other No significant family history Social History Smoking Status: Never smoker Hx Alcohol Use: Yes Alcohol type: hard liquor Hx Substance Use: No Preferred Language: Armenian Communication Ability: Effective Infrastructure Technician Required: No Beliefs That Will Affect Care: None marital status: Current Living Situation: Alone Other Information That Helps Us Care for You: No Feels Safe at Home: Yes Safety Concerns: Afraid for Self Assistive Devices: Walker Review of Systems Review of Systems: 14 point review of systems negative outside of what is listed above in HPI Physical Exam Physical Exam: General: Alert and oriented, no acute distress HEENT: Normocephalic, mucous membranes moist Cardiovascular: Regular rate Pulmonary: Nonlabored respirations Abdomen: Nondistended : Circumcised phallus with orthotopic meatus. Extremities: Moves all 4 spontaneously Neuro: No gross deficits Skin: Warm, dry, no rashes noted Results & Data ([facility]) Vital Signs (Past 12 Hours) Vital Signs Temp Pulse Resp BP Pulse Ox 07/08/21 07:12 36.6 C 96 H 16 115/78 92 PG Care Time/CCT Total # of Minutes Spent Total Time Spent with Patient: Total time spent is greater than 50% in coordination of care (as documented) at patient's floor/unit and/or counseling patient: [place] [address] Inpt Consult Level 3 Patient Type New Diagnoses Urinary retention R33.9
--- NOTE | 2021-07-08 15:11 | Communication Note ---
Date of Service: July 08, 2021 Liaison continues to round on patient who is awaiting placement and reports his sleep is improved. Sodium is slowly correcting (Zoloft discontinued and Remeron held by the primary team). Has low dose Ambien prn available for sleep, doesn't appear to have used. Please contact service if any additional questions/concerns.
--- NOTE | 2021-07-08 16:14 | Hospitalist Progress Note ---
Date of Service July 08, 2021 Assessment & Plan (1) Neurocognitive disorder: (2) Constipation: (3) Hyponatremia: Plan: 70 yo man with history of epilepsy, HLD, anemia, dementia, depression and anxiety presented 07/04 to our ED with abdominal pain and worsening mood symptoms. 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 Strict input and output Furosemide 20mg IV given @ 10/25 a.m. and 10mg IV /25 p.m.; 10mg IV x 2 doses today. Follow-up sodium levels, per nephro continue to hold sertraline and mirtazapine, will put him on Ambien for helping him with sleep per psychiatric recommendation. nephro mentions about salt tabs, pt currently not on, will discuss Abdominal pain/Constipation Ct abd/pelvis with moderate constipation. No bowel obstruction is seen Given senekot, miralax. Continue bowel regimen Worsening neurocognitive disorder Depression Anxiety Concern for forgetfulness, sister/POA no longer feels patient living alone is safe, requesting placement CT head without acute changes, afebrile, no signs/sx of infection or acute electrolyte abn (chronic hyponatremia ~130) Evaluated by psychiatry, who question possibility of Parkinson's disease given his right hand tremor, constipation and masked facies - could pursue with neuro as OP 07/04, patient started on sertraline and Remeron, due to sodium trending down, stopped with psychiatric recommendation, per psychiatry can give a trial of beatriz tazapine after sodium levels off, for now Ambien nightly. Consider referrals for memory loss/dementia support groups or PT/OT to allow him to find ways to maintain some mobility and independence in the midst of his memory loss Epilepsy Continue Dilantin TID Urinary Retention urology consulted olivarez cath placed, 1.5L of urine drain Recommend olivarez for minimum of 7 days, starting 07/08/21. If still hospitalized consider void trial in-house, if discharged urology can do void trial in clinic Likely 2/2 to constipation and BPH, increase Senna S to two tabs bid, continue miralax, had moderate BM this afternoon start flomax in a.m. Monitor for osmotic diuresis DVT Ppx: SQ Lovenox Code status: FULL PCP: Ron Dispo: Admitted to med/surg. CM assisting for placement at personal care facility, currently not stable for discharge given serum sodium level Admission and Anticipated Discharge Date Admission Date: July 04, 2021 Supervising Physician Co-Signing Physician Notes 70 yo man with history of epilepsy, HLD, anemia, dementia, depression and anxiety presented 07/04 to our ED with abdominal pain and worsening mood symptoms. Being managed for constipation with bowel regimen --> needs to increase regimen. Likely urinary retention from constipation s/p olivarez by urology. Psychiatry on board for his worsening neurocognitive disorder and had made some medication changes. Because of acute on chronic hyponatremia, recently started sertraline and mirtazapine were stopped. Per psychiatry, will give a trial of mirtazapine once the sodium level is towards his baseline. Continue to monitor. Will likely need placement. On exam: Patient AOx3, PTT, on room air, anxious looking, no BLE edema, heart lungs and abdomen examination WNL. I have seen and examined the patient and have discussed the case with the provider above. I agree with the assessment and plan as stated. Subjective Patient was seen and examined in 305-1. Follow up hyponatremia & neurocognitive disorder. Contacted by nurse due to pt urinary frequency and PVF > 1200ml. Nursing staff unable to place olivarez and requesting urology consult. Pt states he is, "not doing well today." He complains of incontinence, NO BM, and abdominal pain. He denies f/c/s, chest pain, sob, n/v/d. He states he is losing weight b/c he is not eating and poor appetite. Review of Systems Review of Systems: All systems reviewed & are unremarkable except as noted in HPI & below Physical Exam Physical Exam: Gen: WD/WN, elderly, M, NAD, A&O x3, sitting at bedside, flat affect HEENT: Normocephalic, atraumatic, conjunctivae moist, sclerae anicteric, mucous membranes moist. Lung: Clear to Auscultation bilaterally, no wheezes/rales/rhonchi Heart: Regular rate, regular rhythm, no murmurs, rubs, or gallops Abdomen: Soft, tender to palpation in suprapubic area, ND +BS x 4 Extremities: No edema Skin: Warm, no rash, negative turgor. Results & Data Results & Data ([facility]) Vital Signs (Past 12 Hours) Vital Signs Temp Pulse Resp BP Pulse Ox 07/08/21 15:32 36.9 C 85 16 91/60 L 97 07/08/21 07:12 36.6 C 96 H 16 115/78 92 Laboratory Results BMP 07/07/21 07/08/21 17:52 05:43 Sodium 124 L 128 L Potassium 3.9 3.5 Chloride 91 L 95 L Carbon Dioxide 26 27 BUN 38 H 39 H Creatinine 0.78 0.65 Glucose 154 H 98 Calcium 9.0 8.9 Medications Administered Current Inpatient Medications Acetaminophen (Acetaminophen 325 Mg Tab) 650 mg PO Q4H PRN PRN Reason: Pain or Fever Stop: 08/03/21 01:54 Last Admin: 07/06/21 20:36 Dose: 650 mg Documented by: Atorvastatin Calcium (Atorvastatin 40 Mg Tab) 40 mg PO DAILY RENETTA Stop: 08/03/21 08:59 Last Admin: 07/08/21 08:43 Dose: 40 mg Documented by: Enoxaparin Sodium (Enoxaparin Inj 40 Mg/0.4 Ml Syr) 40 mg SQ QAM RENETTA Stop: 08/03/21 08:59 Last Admin: 07/08/21 08:43 Dose: 40 mg Documented by: Promethazine HCl 6.25 mg/ (Sodium Chloride) 50.25 mls @ 201 mls/hr IV Q6H PRN PRN Reason: Nausea And Vomiting Stop: 08/03/21 01:54 Melatonin (Melatonin 3 Mg Tab) 3 mg PO HS PRN PRN Reason: Sleep Stop: 08/03/21 06:29 Last Admin: 07/06/21 20:35 Dose: 3 mg Documented by: Mirtazapine (Mirtazapine Tab 15 Mg Tab) 15 mg PO HS RENETTA Stop: 08/03/21 20:59 Last Admin: 07/05/21 20:10 Dose: 15 mg Documented by: Multivitamins/Minerals (Cerovite Adv Formula Tab) 1 tab PO QAM RENETTA Stop: 08/03/21 08:59 Last Admin: 07/08/21 08:43 Dose: 1 tab Documented by: Phenytoin Sodium (Phenytoin Sodium Er 100 Mg Cap) 100 mg PO TID RENETTA Stop: 08/03/21 08:59 Last Admin: 07/08/21 14:45 Dose: 100 mg Documented by: Polyethylene Glycol (Polyethylene (Miralax) 17 Gm Pack) 17 gm PO DAILY RENETTA Stop: 08/04/21 17:59 Last Admin: 07/08/21 08:45 Dose: 17 gm Documented by: Senna/Docusate Sodium (Docusate Sodium/Senna 50/8.6mg Tab) 1 tab PO BID RENETTA Stop: 08/03/21 20:14 Last Admin: 07/08/21 08:53 Dose: 1 tab Documented by: Urea (Urea (Urea-Na) 15 Gm Pack) 30 gm PO BID RENETTA Stop: 08/06/21 08:59 Last Admin: 07/08/21 08:44 Dose: 30 gm Documented by: Zolpidem Tartrate (Zolpidem Tartrate 5 Mg Tab) 5 mg PO HS PRN PRN Reason: Sleep Stop: 08/05/21 12:28
[2021-07-08 17:17] LABS: Calcium 8.8 mg/dl (8.5-10.1); Creatinine Clr Calc Pharmacy 69.7 ml/min; Est GFR (African American) 108.9 ml/min; Potassium 4.8 mmol/L (3.5-5.1)
--- NOTE | 2021-07-08 17:44 | Nephrology Progress Note ---
Date of Service July 08, 2021 Assessment & Plan (1) Hyponatremia: Plan: improving Hypoosmolar hyponatremia, euvolemic. - Multiple causes There has been drop in his sodium after the start of Sertaline which is known to cause SIADH and Mirtazapine which can cause HYponatremia.Psychiatric patinets can have central defect in thirst regulation causing polydipsia,he also has h/o alcohol intake and nsaid use. HIs U Osm could be c/w low solute intake or excess water load. goal sNa is 135 tomorrow AM Recs- - cont to hold Sertaline and Mirtazepine in consultation with psychiatry - stopped urea - started bid salt tabs 1 gm plus first dose now - given post obstructive diuresis, will hold on lasix - continue to recommend Nurition consult for high protein diet to increase free water clearance. - for the moment will liberalize fluid limit - daily bmp - strict input/output. Care coordinated w/ hospitalist team (2) Urinary retention: Plan: urology recommends at least 7 days > through 07/15 and urology f/u for voiding trial -urine cx pending (3) Hypotension: Plan: mild on one time check this afternoon; had been hypertensive 07/06 and prior; lower BP since starting lasix and today w/ no lasix lower bp w/ post obstructive diuresis -liberalized FR and salt tabs may help -could give NS 1/2 L at a time if sx Admission and Anticipated Discharge Date Admission Date: July 04, 2021 Subjective urinary retention 1.5L ON and now w/ urology c/s and olivarez. Physical Exam Constitutional: well developed and well nourished; no acute distress Eyes: EOM intact bilaterally ENMT: Ears: no external ear abnormality Nose: no external nose abnormality Mouth: + dry oral mucous membranes Neck: no nuchal rigidity Respiratory: normal respiratory effort Auscultation: + diminished lung sounds Cardiovascular: Rate/Rhythm: regular rate and regular rhythm Heart Sounds: normal S1 and normal S2 Extremities: no edema Gastrointestinal (Abdomen): Inspection/Auscultation: normal bowel sounds Percussion/Palpation: abdomen soft; abdomen nontender Musculoskeletal: Extremities: strength 5/5 throughout Skin: no rashes, warm and dry Psychiatric: Orientation: alert and oriented to person Insight: + limited insight Judgement: + limited judgement Results & Data ([facility]) Vital Signs (Past 12 Hours) Vital Signs Temp Pulse Resp BP Pulse Ox 07/08/21 15:32 36.9 C 85 16 91/60 L 97 07/08/21 07:12 36.6 C 96 H 16 115/78 92 Laboratory Results 07/06/21 05:28 07/08/21 16:47
[2021-07-08] MEDS: SODIUM CHLORIDE 1 GM TABLET PO SCH (18:59)
[2021-07-08] MEDS: MELATONIN 3 MG TAB PO PRN (20:06)
[2021-07-09 06:30] LABS: Hematocrit (blood only) 35.2 % (42-52); Hemoglobin 12.6 g/dL (14.0-18.0); Mean Corpuscular Hgb Conc 35.8 g/dL (32-36); Mean Corpuscular Volume 89.3 fL (80-100); Mean Platelet Volume 8.7 fL (7.4-10.4); Platelet Count 199 K/uL (130-400); RDW Coefficient of Variation 13.1 % (11.5-14.5); RDW Standard Deviation 42.8 fL (36.4-46.3); Red Blood Count 3.94 M/uL (4.7-6.1); White Blood Count 4.81 K/uL (4.8-10.8)
[2021-07-09 07:03] LABS: BUN Creatinine Ratio 44.6 (10-20); Calcium 8.9 mg/dl (8.5-10.1); Est GFR (African American) 116.5 ml/min; Est GFR (Non-African American) 100.5 ml/min; Potassium 4.4 mmol/L (3.5-5.1)
[2021-07-09] MEDS: CEROVITE ADV FORMULA TAB PO SCH (08:01)
[2021-07-09] MEDS: PHENYTOIN SODIUM ER 100 MG CAP PO SCH ×3 (08:01→19:26)
[2021-07-09] MEDS: DOCUSATE SODIUM/SENNA 50/8.6MG TAB PO SCH ×2 (08:01→19:26)
[2021-07-09] MEDS: ATORVASTATIN 40 MG TAB PO SCH (08:01)
[2021-07-09] MEDS: TAMSULOSIN HCL 0.4 MG CAP PO SCH (08:01)
[2021-07-09] MEDS: ENOXAPARIN INJ 40 MG/0.4 ML SYR SQ SCH (08:02)
[2021-07-09] MEDS: SODIUM CHLORIDE 1 GM TABLET PO SCH ×2 (08:02→19:26)
[2021-07-09] MEDS: POLYETHYLENE (MIRALAX) 17 GM PACK PO SCH (08:08)
[2021-07-09 08:35] LABS: Appearance Urine Cloudy (Clear); Bacteria Urine Automated Negative (Negative); Bilirubin Urine Negative (Negative); Blood Urine 2+ (Negative); Color Urine Yellow; Glucose Urine UA Negative (Negative); Ketones Urine Negative (Negative); Leukocyte Esterase Urine Trace (Negative); Nitrite Urine Negative (Negative); Specific Gravity Urine 1.022 (1.000-1.030); Urobilinogen Urine Negative (Negative); pH Urine 7.5 (4.5-7.5)
[2021-07-09 08:50] LABS: Protein Urine Trace (Negative)
--- NOTE | 2021-07-09 15:16 | Hospitalist Progress Note ---
Date of Service July 09, 2021 Assessment & Plan (1) Neurocognitive disorder: (2) Constipation: (3) Hyponatremia: Plan: 70 yo man with history of epilepsy, HLD, anemia, dementia, depression and anxiety presented 07/04 to our ED with abdominal pain and worsening mood symptoms. 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 Strict input and output Furosemide 20mg IV given @ 07/07 a.m. and 10mg IV 07/07 p.m.; 10mg IV x 2 doses on 07/08. Follow-up sodium levels, per nephro continue to hold sertraline and mirtazapine, will put him on Ambien for helping him with sleep per psychiatric recommendation. Nephro D/C Urea and placed on NACL 1g tabs bid, fluid restriction at 2L now Abdominal pain/Constipation Ct abd/pelvis with moderate constipation. No bowel obstruction is seen Given senekot, miralax. Continue bowel regimen BM on 07/08 Worsening neurocognitive disorder Depression Anxiety Concern for forgetfulness, sister/POA no longer feels patient living alone is safe, requesting placement CT head without acute changes, afebrile, no signs/sx of infection or acute electrolyte abn (chronic hyponatremia ~130) Evaluated by psychiatry, who question possibility of Parkinson's disease given his right hand tremor, constipation and masked facies - could pursue with neuro as OP 07/04, patient started on sertraline and Remeron, due to sodium trending down, stopped with psychiatric recommendation, per psychiatry can give a trial of mirtazapine after sodium levels off, for now Ambien nightly. Consider referrals for memory loss/dementia support groups or PT/OT to allow him to find ways to maintain some mobility and independence in the midst of his memory loss Epilepsy Continue Dilantin TID Urinary Retention urology consulted olivarez cath placed, 1.5L of urine drain Recommend olivarez for minimum of 7 days, starting 07/08/21. If still hospitalized consider void trial in-house, if discharged urology can do void trial in clinic Likely 2/2 to constipation and BPH, increase Senna S to two tabs bid, continue miralax, had moderate BM this afternoon Flomax started 07/09 DVT Ppx: SQ Lovenox Code status: FULL PCP: Ron Dispo: Admitted to med/surg. Pt to discharge to [facility] when stable, anticipate d/c in next 1-2 day pending stable Na levels. Discussed with Sister, Admission and Anticipated Discharge Date Admission Date: July 04, 2021 Supervising Physician Co-Signing Physician Notes Patient seen and examined today. Patient has poor insight. Appears a little bit more anxious today Physical exam grossly unremarkable except for Olivarez in situ, poor insight and anxious mood. Lab notable for improving sodium of 134 today. Discussed with power shovel operator today. We will plan to discharge patient on salt tabs. Patient will need twice weekly BMP on Wednesday and and to follow-up days with nephrology outpatient. Okay with trial of Remeron only as recommended by psychiatry. Monitor sodium closely while inpatient advertising traffic manager working on placement Agree with other plans as detailed by Romy Marsh PA-C Subjective Patient was seen and examined in 305-1. Follow up hyponatremia & neurocognitive disorder. Pt states he is not doing well today. He states he had to have a olivarez placed yesterday and it was painful. He complains of being, "shaky and wobbly," and he can't go home like this. He denies f/c/s, chest pain, sob, n/v/d, abd pain. He did have BM last evening per nursing notes. He admits to being nervous. Review of Systems Review of Systems: At least ten systems reviewed and negative except as noted in the HPI. Physical Exam Physical Exam: Gen: WD/WN, elderly, M, NAD, A&O x3, sitting at bedside, flat affect HEENT: Normocephalic, atraumatic, conjunctivae moist, sclerae anicteric, mucous membranes moist. Lung: Clear to Auscultation bilaterally, no wheezes/rales/rhonchi Heart: Regular rate, regular rhythm, no murmurs, rubs, or gallops Abdomen: Soft, NT, ND, +BS Extremities: No edema Skin: Warm, no rash, negative turgor. : +olivarez cath draining yellow urine Results & Data Results & Data ([facility]) Vital Signs (Past 12 Hours) Vital Signs Temp Pulse Resp BP Pulse Ox 07/09/21 14:23 37.1 C 91 H 16 139/85 93 07/09/21 07:34 36.9 C 92 H 16 109/65 96 Laboratory Results Short CBC 07/09/21 Range/Units 05:53 WBC 4.81 (4.8-10.8) K/uL Hgb 12.6 L (14.0-18.0) g/dL Hct 35.2 L (42-52) % Plt Count 199 (130-400) K/uL BMP 07/08/21 07/09/21 16:47 05:53 Sodium 131 L 134 L Potassium 4.8 D 4.4 Chloride 98 101 Carbon Dioxide 30 26 BUN 44 H 28 H Creatinine 0.73 0.62 Glucose 104 H 83 Calcium 8.8 8.9 Urine 07/09/21 Range/Units 08:08 Urine Color Yellow Urine Appearance Cloudy A (Clear) Urine pH 7.5 (4.5-7.5) Ur Specific [place] 1.022 (1.000-1.030) Urine Protein Trace H (Negative) Urine Glucose (UA) Negative (Negative) Medications Administered Current Inpatient Medications Acetaminophen (Acetaminophen 325 Mg Tab) 650 mg PO Q4H PRN PRN Reason: Pain or Fever Stop: 08/03/21 01:54 Last Admin: 07/06/21 20:36 Dose: 650 mg Documented by: Atorvastatin Calcium (Atorvastatin 40 Mg Tab) 40 mg PO DAILY [facility] Stop: 08/03/21 08:59 Last Admin: 07/09/21 08:01 Dose: 40 mg Documented by: Enoxaparin Sodium (Enoxaparin Inj 40 Mg/0.4 Ml Syr) 40 mg SQ QAM [facility] Stop: 08/03/21 08:59 Last Admin: 07/09/21 08:02 Dose: 40 mg Documented by: Promethazine HCl 6.25 mg/ (Sodium Chloride) 50.25 mls @ 201 mls/hr IV Q6H PRN PRN Reason: Nausea And Vomiting Stop: 08/03/21 01:54 Melatonin (Melatonin 3 Mg Tab) 3 mg PO HS PRN PRN Reason: Sleep Stop: 08/03/21 06:29 Last Admin: 07/08/21 20:06 Dose: 3 mg Documented by: Mirtazapine (Mirtazapine Tab 15 Mg Tab) 15 mg PO HS RENETTA Stop: 08/03/21 20:59 Last Admin: 07/05/21 20:10 Dose: 15 mg Documented by: Multivitamins/Minerals (Cerovite Adv Formula Tab) 1 tab PO QAM [facility]ENETTA Stop: 08/03/21 08:59 Last Admin: 07/09/21 08:01 Dose: 1 tab Documented by: Phenytoin Sodium (Phenytoin Sodium Er 100 Mg Cap) 100 mg PO TID RENETTA Stop: 08/03/21 08:59 Last Admin: 07/09/21 13:35 Dose: 100 mg Documented by: Polyethylene Glycol (Polyethylene (Miralax) 17 Gm Pack) 17 gm PO DAILY RENETTA Stop: 08/04/21 17:59 Last Admin: 07/09/21 08:08 Dose: 17 gm Documented by: Senna/Docusate Sodium (Docusate Sodium/Senna 50/8.6mg Tab) 2 tab PO BID RENETTA Stop: 08/07/21 20:59 Last Admin: 07/09/21 08:01 Dose: 2 tab Documented by: Sodium Chloride (Sodium Chloride 1 Gm Tablet) 1 gm PO BID RENETTA Stop: 08/07/21 17:59 Last Admin: 07/09/21 08:02 Dose: 1 gm Documented by: Tamsulosin HCl (Tamsulosin Hcl 0.4 Mg Cap) 0.4 mg PO QAM RENETTA Stop: 08/08/21 08:59 Last Admin: 07/09/21 08:01 Dose: 0.4 mg Documented by: Zolpidem Tartrate (Zolpidem Tartrate 5 Mg Tab) 5 mg PO HS PRN PRN Reason: Sleep Stop: 08/05/21 12:28
[2021-07-09] MEDS: MIRTAZAPINE TAB 15 MG TAB PO SCH (19:24)
--- NOTE | 2021-07-09 19:52 | Nephrology Progress Note ---
Date of Service July 09, 2021 Assessment & Plan (1) Hyponatremia: Plan: improving Hypoosmolar hyponatremia, euvolemic. - Multiple causes There has been drop in his sodium after the start of Sertaline which is known to cause SIADH and Mirtazapine which can cause HYponatremia.Psychiatric patinets can have central defect in thirst regulation causing polydipsia,he also has h/o alcohol intake and nsaid use. HIs U Osm could be c/w low solute intake or excess water load. goal sNa is 135 tomorrow AM Recs- - cont to hold Sertaline and Mirtazepine in consultation with psychiatry - though may reintroduce remeron in isolation if indicated once sNa stabilized - stopped urea - continue bid salt tabs - given post obstructive diuresis, will hold on lasix - continue high protein diet to increase free water clearance. - continue 2L FR - daily bmp - strict input/output. Will sign off DISCHARGE RECOMMENDATIONS -daily bmp while in house -at hospital discharge, recommend continuing bid salt tabs 1 gm -recommend d/c assistant media planner arrange f/u w/ [facility] nephro any provider [facility] 2-3 weeks after discharge -needs bmp q Mon/Thurs after discharge > d/c assistant media planner to send staff mssg to nurse pool of neph provider who'll see pt for order placement (2) Urinary retention: Plan: urology recommends at least 7 days > through 07/15 and urology f/u for voiding trial -urine cx pending (3) Hypotension: Plan: mild on one time check this afternoon; had been hypertensive 07/06 and prior; lower BP since starting lasix and today w/ no lasix lower bp w/ post obstructive diuresis -liberalized FR and salt tabs may help -could give NS 1/2 L at a time if sx Admission and Anticipated Discharge Date Admission Date: July 04, 2021 Subjective anxious; c/o constipation; dislikes olivarez; no sob, no n, no emesis, no edema Review of Systems Review of Systems: All systems reviewed & are unremarkable except as noted in Subjective Physical Exam Constitutional: well developed and well nourished; no acute distress Eyes: EOM intact bilaterally ENMT: Ears: no external ear abnormality Nose: no external nose abnormality Mouth: + dry oral mucous membranes Neck: no nuchal rigidity Respiratory: normal respiratory effort Auscultation: + diminished lung sounds Cardiovascular: Rate/Rhythm: regular rate and regular rhythm Heart Sounds: normal S1 and normal S2 Extremities: no edema Gastrointestinal (Abdomen): Inspection/Auscultation: normal bowel sounds Percussion/Palpation: abdomen soft; abdomen nontender Musculoskeletal: Extremities: strength 5/5 throughout Skin: no rashes, warm and dry Psychiatric: Orientation: alert and oriented to person Insight: + limited insight Judgement: + limited judgement Genitourinary: olivarez w/ ample light yellwo urine Results & Data ([facility]) Vital Signs (Past 12 Hours) Vital Signs Temp Pulse Resp BP Pulse Ox 07/09/21 14:23 37.1 C 91 H 16 139/85 93 Laboratory Results 07/09/21 05:53 07/09/21 05:53
[2021-07-10] MEDS: PHENYTOIN SODIUM ER 100 MG CAP PO SCH ×2 (08:19→13:03)
[2021-07-10] MEDS: SODIUM CHLORIDE 1 GM TABLET PO SCH (08:19)
[2021-07-10] MEDS: TAMSULOSIN HCL 0.4 MG CAP PO SCH (08:19)
[2021-07-10] MEDS: ATORVASTATIN 40 MG TAB PO SCH (08:19)
[2021-07-10] MEDS: CEROVITE ADV FORMULA TAB PO SCH (08:19)
[2021-07-10] MEDS: DOCUSATE SODIUM/SENNA 50/8.6MG TAB PO SCH (08:19)
[2021-07-10] MEDS: ENOXAPARIN INJ 40 MG/0.4 ML SYR SQ SCH (08:20)
[2021-07-10] MEDS: POLYETHYLENE (MIRALAX) 17 GM PACK PO SCH (08:20)
[2021-07-10] MEDS ORDERED: bisacodyL 10 MG SUPP PR STA (09:03)
[2021-07-10 10:05] LABS: Calcium 8.9 mg/dl (8.5-10.1); Creatinine Clr Calc Pharmacy 68.7 ml/min; Est GFR (African American) 108.3 ml/min; Est GFR (Non-African American) 93.5 ml/min
--- NOTE | 2021-07-10 11:26 | Discharge Summary ---
Date of Service July 10, 2021 Admission HPI Per Admitting Provider History obtained from patient and records. Patient is a reliable historian. Medical history significant for epilepsy, hyperlipidemia, chronic anemia (baseline hemoglobin 12-13), dementia, anxiety/mood disorder, past tobacco abuse. Last confinement 2018 for behavioral changes likely secondary to underlying dementia, neurocognitive disorder. Last month, patient complained to sister of worsening depression. Patient sad, not eating as much. About 10 pound weight loss in the last month as per sister. Denies suicidality. Patient more anxious than usual. Patient also complaining of achy abdominal pain going to the chest with constipation symptoms. Unclear depression precipitant as per sister. Patient seen at PCPs office 3 weeks ago. Buspirone initiated by PCP. No improvement in anxiety depression despite medication intake as per sister. Patient sister also worried about patient ability to care for self at home with episodic confusion. Patient has to be reminded to take his pills. Patient brought to the ER by sister for further evaluation. Medical History as above Surgical History : Carpal tunnel surgery, vasectomy, ankle surgery Family History : Laryngeal cancer, CAD, hyperlipidemia, hypertension Personal/Social history : Past tobacco abuse, occasional alcohol intake, retired [employer] employee, lives by himself Admission Exam Per Admitting Provider GENERAL: slightly anxious, no respiratory distress SKIN: Pallor, warm HEENT: Bespectacled, pale palpebral conjunctivae, no ptosis, dry buccal mucosa NECK : Supple, short neck, no tenderness CHEST : CTA, no tenderness HEART : RRR, no obvious murmurs ABDOMEN: No overt distention, nontender EXTREMITIES : No LE swelling/tenderness, no other conspicuous deformities noted NEUROLOGIC : Coherent, no facial asymmetry, gait and stance not assessed Principal Diagnosis Inability to care for self Constipation Urinary retention Major depression Anxiety Discharge Exam Gen: WD/WN, NAD, sitting in bed, appears comfortable, A&Ox3, slightly anxious HEENT: Normocephalic, atraumatic, conjunctivae moist, sclerae anicteric, mucous membranes moist Lung: Clear to Auscultation bilaterally, no wheezes/rales/rhonchi Heart: Regular rate, regular rhythm, no murmurs, rubs, or gallops Abdomen: Soft, non-tender, no guarding, ND +BS x 4 Extremities: no edema Skin: Warm, no rash Discharge Data Allergies Allergy/AdvReac Type Severity Reaction Status Date / Time No Known Allergies Allergy Verified 07/03/21 19:55 Consultations 07/03/21 23:10 ED Decision to Admit Stat 07/04/21 01:55 Consult Psychiatry Routine 07/05/21 17:27 Consult Nephrology Routine 07/08/21 08:37 Consult Urology Routine Ordered Studies 07/03/21 20:23 CT head/brain wo con Stat The paranasal sinuses and mastoid air cells are clear. The calvarium and skull base are intact. The ventricles and sulci are within normal limits. There is no mass, hematoma, midline shift, or acute infarct. Impression: No acute intracranial abnormality. 07/04/21 00:30 CT abd pelvis IV con only Urgent Lung bases: The heart is normal in size and without pericardial effusion. The lung bases are clear. Liver: The contrast-enhanced liver is normal in size, contour, and attenuation. There is no intrahepatic biliary ductal dilatation. The hepatic veins and portal veins are patent. A 1.4 cm cyst is noted in the left lobe. Gallbladder: Unremarkable. Spleen: Normal in size and attenuation. Pancreas: Unremarkable. Adrenal glands: There is nonspecific thickening of the adrenal glands. Kidneys: The contrast enhanced kidneys are normal in size and without hydronephrosis. The kidneys enhance symmetrically. Abdominal vasculature: The abdominal aorta is normal in course and caliber noting advanced atherosclerotic calcification. Bowel: The gastric mucosa appears thickened and hyperemic. There is mild to moderate colonic fecal retention. No bowel obstruction is seen. The appendix is not visualized. Peritoneum: There is no intraperitoneal free air or abdominal ascites. Lymphadenopathy: None. Pelvic viscera: The prostate gland is markedly enlarged and heterogeneous noting median lobe hypertrophy. The bladder wall is thickened and trabeculated indicating chronic outlet obstruction. Skeletal structures: The skeletal structures are osteopenic. There is moderate lumbosacral spondylosis. No lytic or blastic lesions are seen. Soft tissues: The patient is cachectic. IMPRESSION: 1. Significantly motion compromised examination. 2. Question gastritis. Clinical correlation will be required. If warranted this could be further assessed with endoscopy. 3. Moderate constipation. No bowel obstruction is seen. 4. Marked prostatomegaly with evidence of chronic bladder outlet obstruction. 5. Additional findings as above. Hospital Course (1) Neurocognitive disorder: (2) Constipation: (3) Hyponatremia: (4) Urinary retention: (5) Major depression: (6) Anxiety: This is a 70 yo man with history of epilepsy, HLD, anemia, dementia, depression and anxiety presented 07/04 to our ED with abdominal pain and worsening mood symptoms. CT abd/pelvis with moderate constipation. No bowel obstruction is seen. Has been receiving Senokot and Miralax with improved bowel function. Will continue regimen upon discharge. Sister/CATHERINE Jarrell concerned for forgetfulness, worsening mood. She no longer feels patient living alone is safe and is requesting placement. CT head without acute changes, afebrile, no signs/sx of infection or acute electrolyte abnormalities (chronic hyponatremia ~130). Evaluated by psychiatry, who discontinued Buspar and Trazodone and started Sertraline and Mirtazapine but due to sodium trending down, Sertraline was discontinued. Question of Parkinson's disease was also raised given his right hand tremor, constipation and masked facies which could be pursued with neurology as an outpatient. Dr. Frank of nephrology was consulted during stay for hyponatremia and started sodium chloride 1gm PO BID with instruction to follow up in clinic and have twice weekly (Wed and ) lab work that has been coordinated. Urology was consulted during admission for urinary retention and olivarez catheter was placed. Recommended olivarez for minimum of 7 days, starting 07/08/21. Urology to arrange void trial in clinic after 07/15/21. Continue flomax at discharge. Patient discharged to [facility]. Updated sister/CATHERINE Jarrell prior to patient's discharge. Hemodynamically stable at time of discharge to facility. Total Time Total Time Spent Total Time Spent (In Minutes): 45 Total Time Includes: Examination of the Patient, Discharge Planning, Medication Reconciliation and Communication With Other Providers Discharge Plan Discharge Items Patient Disposition: Personal Halfway Reason For Visit: CP, ABD PAIN Discharge Diagnosis: constipation, need for placement Activity: Resume your previous activity Non-emergency contact: Primary Care Provider Call non-emergency contact if: you have any medication questions, your symptoms worsen and your pain is not controlled Follow-up/Referrals: [facility] [Other] ([address] [place] [id number] [facility] will be calling with an appointment time and date) Isiah Mancilla MD [Surgeon] - (Date & Time 10/17/2021 10:40 AM Provider Isiah Mancilla MD Department Nephrology, [facility] ) Jann Velasquez MD [Primary Care Provider] - (Date & Time 07/17/2021 11:20 AM Provider Jann Velasquez MD Department [facility] ) Diet: Regular Addtl Attending Provider Instructions: Delta, You were admitted for abdominal pain in setting of constipation that has improved with a bowel regimen. We will continue this regimen twice daily. Please hold for loose stool or diarrhea. You were also seen by psychiatry during your stay for worsening depression and anxiety. Medications have been adjusted based on your labs and have been sent to the pharmacy. You were seen by kidney doctor during this admission, who recommends continuing salt tablets twice daily. You will be set up with follow up appointment with kidney doctors and twice weekly lab work has been ordered. You were found to have urinary retention while here and a olivarez catheter was placed. Urology office will coordinate follow up for voiding trial in the next week. Olivarez should remain in place until 07/15. NEW MEDICATIONS: Take Mirtazapine 15mg at night for mood and sleep Take Senokot S twice daily for ongoing issues with constipation. HOLD for loose stool/constipation. Take sodium chloride tablets twice daily. DISCONTINUE: Your buspirone and trazodone have been discontinued. RECOMMENDATIONS FOR FOLLOW-UP: Please follow up with Dr. Velasquez at 11:20am on 07/17/21 Please follow up with Dr. Mancilla on 2021 (nephrology office trying to move up appointment and will be in contact) Urology office to coordinate follow up within the week for olivarez catheter r emoval. OTHER INSTRUCTIONS: Seek medical attention if you have: * temperature above 101 * chest pain or trouble breathing * abdominal pain, nausea, vomiting * diarrhea, dark stools or bloody stools * any unanswered questions or concerns Call 911 if symptoms are severe. Please take good care of yourself. Call if you have any questions or problems. You can reach a [facility] hospitalist on duty at [facility] 24 hours a day by calling [phone]. Laura Caballero PA-C [facility] Hospitalist Pending Studies at Discharge: No Stand-Alone Forms: My [facility], Smoking Cessation Skilled Items Patient informed of condition?: Yes DNR: No Discharge Level of Care: Skilled Communicable Disease: No Discharge Prognosis: Stable Lines: None Urinary Catheter: Yes Medications and DC Order Prescriptions: New sodium chloride 1 gram Tablet 1 g PO BID Qty: 60 RF: 0 mirtazapine 15 mg Tablet 15 mg PO HS Qty: 30 RF: 0 sennosides-docusate sodium [Senokot-S] 8.6-50 mg Tablet 1 tab-cap PO BID Qty: 60 RF: 0 tamsulosin 0.4 mg Capsule 0.4 mg PO QAM Qty: 30 RF: 0 Continued atorvastatin 40 mg tablet 40 mg PO DAILY Qty: 30 RF: 0 ascorbic acid (vitamin C) 1,000 mg Tablet Extended Release 1,000 mg PO QAM Qty: 30 RF: 0 phenytoin sodium extended [Dilantin Extended] 100 mg Capsule 100 mg PO TID Qty: 90 RF: 0 multivitamin with minerals Tablet 1 tab PO QAM Qty: 30 RF: 0 cholecalciferol (vitamin D3) [Vitamin D3] 125 mcg (5,000 unit) Tablet 125 mcg PO DAILY Qty: 30 RF: 0 Discontinued buspirone 5 mg tablet 5 mg PO BID RF: 0 trazodone 150 mg tablet 150 mg PO HS RF: 0 Discharge Orders: Discharge Order (Routine); Ordered 07/10/21 Ordered By: Laura Carrion/Other Patient Handouts: High Fiber Diet Dc Admission Data Admit Date/Time: 07/04/21 15:40 Attending Provider: Meg Shah I. Admit Provider: Harjit Begum Primary Care Provider: Jann Velasquez Other Providers: Harjit Begmu ; Usha Vasquez ; Libra Armstrong ; Emilee Fiore ; Joo Stinson ; Fidel Cunningham ; Romy Marsh ; Jamari Coon ; Bonifacio Hahn ; [facility] Other Interventions: Discharge Summary Assessment (RN) Last Done: 07/10/21 11:27 Supervising Physician Co-Signing Physician Notes Agree with plans as detailed by Laura Caballero PA-C Spent 35 mins on discharge planning, counselling, discussing with other providers
--- NOTE | 2021-07-16 16:54 | Coding Query ---
CODING QUERY To promote full compliance with coding requirements relating to patient care, provider participation is requested in all cases of fabricating machine operator uncertainty. Please assist us with the question(s) below: Coding Question(s): 70 year old Patient admitted with confusion,memory loss, increasing confusion over last 2-3 months. Admitted also with hyponatremia /acute & chronic. Inability to care for self. Please document, if known or suspected the diagnosis/etiology for patient's symptoms. Thanks for your help! [employer] [facility] Physician's Response(s): Principal Diagnosis: "that condition established after study, to be chiefly responsible for occasioning the admission of the patient to the hospital for care." Co-Existing Principal Diagnosis: "when two or more diagnoses equally meet the criteria for principal diagnosis as determined by the circumstances of admission, diagnostic work up, and/or therapy provided, and the Alphabetic Index, Tabular List, or another coding guideline does not provide sequencing direction, any one of the diagnoses may be sequenced first." "When the physician has documented what appears to be a current diagnosis in the body of the record, but has not included the diagnosis in the final diagnostic statement, the physician should be asked whether the diagnosis should be added." (Source Coding Clinic 2 QTR90. p3-4) ARIE
== END 2021-07-10 13:23 | disposition home health service (06) | DRG 948 ==
LOC: ED 17:27 → 3E 17:27 → SUATTDRO 23:39 → 3E 07-04 01:14 → SUATTDRO 07-04 15:40 → 3E 07-05 20:30